=== PATIENT | male | born 1930 | race Caucasian/White ===

== ENCOUNTER 2018-09-21 12:25 | Inpatient (IN) | payer MEDICARE, OTHER ==
[~2018-09-21] VITALS: Ht 165.1 cm; Wt 38.6 kg
--- NOTE | 2018-09-21 12:25 | NUR ---
PT DARONPA FROM [facility]. PT AAOX4, PT ON MONITOR, VSS, NAD NOTED, PENDING MD FREEMAN
[2018-09-21] MEDS ORDERED: VANCOMYCIN 1 GM in IV D5W 250 ML IV ONE (13:00)
[2018-09-21] MEDS ORDERED: IV NS 0.9% 1,000 ML BAG IV ONE (13:00)
[2018-09-21] MEDS ORDERED: SENN-168 GT (13:11)
[2018-09-21] MEDS ORDERED: ASPI-1169 GT (13:11)
[2018-09-21] MEDS ORDERED: DOCU50LI GT (13:11)
[2018-09-21] MEDS ORDERED: VALS80TA2 GT (13:11)
[2018-09-21] MEDS ORDERED: ACET650S26 GT ×2 (13:11)
[2018-09-21] MEDS ORDERED: OLAN5TAB3 GT (13:11)
[2018-09-21] MEDS ORDERED: MAGN400O6 GT (13:11)
[2018-09-21] MEDS ORDERED: NA P133E RC (13:11)
[2018-09-21] MEDS ORDERED: PANT40SU2 GT (13:11)
[2018-09-21] MEDS ORDERED: AMIN30LI27 GT (13:11)
[2018-09-21] MEDS ORDERED: MULT-447 GT (13:11)
[2018-09-21] MEDS ORDERED: NUTR150016 GT (13:11)
[2018-09-21] MEDS ORDERED: ACET-2605 GT (13:11)
[2018-09-21] MEDS ORDERED: THIA100T74 GT (13:11)
[2018-09-21] MEDS ORDERED: BISA10SU8 RC (13:11)
[2018-09-21 13:19] LABS: BASOPHILS % (AUTO) 0.8 % (0.0-2.0); EOSINOPHILS % (AUTO) 0.9 % (0.0-6.0); HEMATOCRIT 35 % (39-51); HEMOGLOBIN 12.1 g/dL (13.5-17.5); LYMPHOCYTES # (AUTO) 1.3 /CMM (0.8-4.8); LYMPHOCYTES % (AUTO) 28.3 % (20.0-44.0); MEAN CORPUSCULAR HGB CONC 35 g/dl (31.0-36.0); MEAN CORPUSCULAR VOLUME 98 fL (80-96); MONOCYTES # (AUTO) 0.2 /CMM (0.1-1.30); MONOCYTES % (AUTO) 5.4 % (2.0-12.0); NEUTROPHILS # (AUTO) 2.9 /CMM (1.8-8.9); NEUTROPHILS % (AUTO) 64.6 % (43.0-81.0); PLATELET COUNT (AUTO) 158 /CMM (150-450); RED BLOOD CELL COUNT(AUTO) 3.54 MIL/uL (4.5-6.0); WHITE BLOOD COUNT (AUTO) 4.4 K/uL (4.3-11.0)
[2018-09-21 13:28] LABS: CALCIUM, SERUM 8.9 mg/dL (8.5-10.1); CARBON DIOXIDE 32 mmol/L (21-32); CHLORIDE 102 mmol/L (98-107); CREATININE 0.8 mg/dL (0.6-1.3); GLUCOSE 81 mg/dL (74-106); POTASSIUM 4.5 mmol/L (3.5-5.1); SODIUM SERUM 137 mmol/L (136-145); UREA NITROGEN, BLOOD 29 mg/dL (7-18)
[2018-09-21 13:34] LABS: ALANINE AMINOTRANSFERASE 20 U/L (12-78); ALBUMIN 2.8 g/dL (3.4-5.0); ALKALINE PHOSPHATASE 119 U/L (46-116); ASPARTATE AMINOTRANSFERASE 17 U/L (15-37); BILIRUBIN,DIRECT 0.2 mg/dL (0.0-0.2); BILIRUBIN,TOTAL 0.8 mg/dL (0.2-1.0)
--- NOTE | 2018-09-21 14:32 | NUR ---
URINE SAMPLE SENT TO LAB
[2018-09-21 14:36] LABS: APPEARANCE,URINE Slightly Cloudy (CLEAR); BILIRUBIN,URINE Negative (NEGATIVE); BLOOD, URINE Negative Ery/uL (NEGATIVE); COLOR,URINE Yellow (YELLOW); KETONES,URINE Negative (NEGATIVE); LEUKOCYTE ESTERASE ,URINE Negative (NEGATIVE); NITRITE, URINE Negative (NEGATIVE); PH,URINE 7.5 (5.0-8.0); PROTEIN,URINE Negative (NEGATIVE); UGLUCOSE Negative (NEGATIVE); UROBILINOGEN,URINE 0.2 EU/dL (0.2)
--- NOTE | 2018-09-21 14:42 | NUR ---
DR MARVIN AT BEDSIDE. ATTEMPTED TO RE INSERT G-TUBE. UNSUCCESSFUL DUE TO CLOSURE OF STOMA.
--- NOTE | 2018-09-21 16:32 | NUR ---
PT IN BED ASLEEP, FAMILY AT BEDSIDE, HOOKED TO MONITOR, KEPT WARM AND SAFE. WILL CONTINUE TO MONITOR.
--- NOTE | 2018-09-21 17:52 | NUR ---
REPORT GIVEN TO ARLEY OF MED SURG UNIT
[2018-09-21] MEDS ORDERED: MAGNESIUM HYDROXIDE 30 ML UDC PO PRN (18:00)
[2018-09-21] MEDS ORDERED: HYDROCODONE/APAP 5/325MG 1 EACH TABLET PO PRN (18:00)
[2018-09-21] MEDS ORDERED: MAG HYDROX/AL HYDROX/SIMETH 30 ML UDC PO PRN (18:00)
[2018-09-21] MEDS ORDERED: ZOLPIDEM TARTRATE 5 MG TABLET PO PRN (18:00)
[2018-09-21] MEDS ORDERED: Z GUARD REMEDY 2 OZ OINT TP PRN (18:00)
[2018-09-21] MEDS ORDERED: ACETAMINOPHEN 325 MG TABLET PO PRN (18:00)
[2018-09-21] MEDS ORDERED: ONDANSETRON HCL/PF 4 MG/2 ML VIAL IVP PRN (18:00)
[2018-09-21] MEDS ORDERED: FEE PK DOSING 1 MIN EA MC ONE (18:08)
--- NOTE | 2018-09-21 18:30 | NUR ---
ADMISSION/CLOSING NOTE PT WAS BROUGHT UP AT THIS TIME IN STABLE CONDITION TO THE FLOOR, A/OX2, BREATHING EVEN AND UNLABORED ON RA, NO CURRENT S/S OF ANY DISTRESS OR PAIN NOTED AT THIS TIME, IV IS PATENT AND INTACT, SAFETY PRECAUTIONS IN PLACE, CALL LIGHT WITHIN REACH, WILL ENDORSE TO ONCOMING GENERAL ROAD PRODUCTION MANAGER RN FOR GALDINO.
--- NOTE | 2018-09-21 19:30 | NUR ---
MS RN OPENING NOTES: RECEIVED PT ON ROOM AIR AND IS TOLERATING WELL. NO SOB NOTED. NO S/S OF DISTRESS. 2 SONS AT BEDSIDE. PT HAS IV AND IS INTACT. CURRENTLY H/L. PT MALTESE SPEAKING ONLY AND APPEARS TO BE A/OX2. PT TO BE STARTED ON IV FLUIDS SOON. BED ALARM ACTIVATED. BED KEPT IN LOW, LOCKED POSITION, AND SIDE RAILS X 2UP. WILL CONTINUE TO MONITOR PT.
[2018-09-21] MEDS: IV D5/0.45 NACL 1,000 ML IV PRN (19:52)
[2018-09-21 20:00] VITALS: BP 93/51
[2018-09-21] MEDS ORDERED: hydrALAZINE HCL IV 20 MG VIAL IV PRN (20:30)
[2018-09-22] MEDS: VANCOMYCIN 500 MG in IV D5W 100 ML IV SCH ×2 (00:02→13:07)
[2018-09-22 03:29] VITALS: BP 97/53
[2018-09-22 06:42] LABS: BASOPHILS % (AUTO) 0.8 % (0.0-2.0); EOSINOPHILS % (AUTO) 2.1 % (0.0-6.0); HEMATOCRIT 27 % (39-51); HEMOGLOBIN 9.7 g/dL (13.5-17.5); LYMPHOCYTES # (AUTO) 1.3 /CMM (0.8-4.8); LYMPHOCYTES % (AUTO) 43.1 % (20.0-44.0); MEAN CORPUSCULAR HGB CONC 36 g/dl (31.0-36.0); MEAN CORPUSCULAR VOLUME 96 fL (80-96); MONOCYTES # (AUTO) 0.3 /CMM (0.1-1.30); MONOCYTES % (AUTO) 8.2 % (2.0-12.0); NEUTROPHILS # (AUTO) 1.4 /CMM (1.8-8.9); NEUTROPHILS % (AUTO) 45.8 % (43.0-81.0); PLATELET COUNT (AUTO) 131 /CMM (150-450); RED BLOOD CELL COUNT(AUTO) 2.83 MIL/uL (4.5-6.0); WHITE BLOOD COUNT (AUTO) 3.1 K/uL (4.3-11.0)
--- NOTE | 2018-09-22 06:58 | NUR ---
MS RN CLOSING NOTES: ALL NEEDS WERE ATTENDED AND ANTICIPATED FOR. PT KEPT CLEAN, DRY, AND COMFORTABLE. G TUBE SITE KEPT CLEAN AND DRY AND COVERED WITH AB PAD. IV REMAINS INTACT AND IS BEING INFUSED WITH IV D5 1/2 NS AT 75ML/HR. BED ALARM ACTIVATED. NO SOB NOTED. NO S/S OF DISTRESS. BED KEPT IN LOW, LOCKED POSITION, AND SIDE RAILS X 2 UP. WILL ENDORSE TO AM NURSE FOR GALDINO.
[2018-09-22 07:06] LABS: CALCIUM, SERUM 8.4 mg/dL (8.5-10.1); CARBON DIOXIDE 29 mmol/L (21-32); CHLORIDE 101 mmol/L (98-107); CREATININE 0.7 mg/dL (0.6-1.3); GLUCOSE 87 mg/dL (74-106); PHOSPHORUS 3.1 mg/dL (2.5-4.9); POTASSIUM 4.1 mmol/L (3.5-5.1); SODIUM SERUM 137 mmol/L (136-145); UREA NITROGEN, BLOOD 24 mg/dL (7-18)
[2018-09-22 08:00] VITALS: BP 118/65
--- NOTE | 2018-09-22 08:00 | NUR ---
RN NOTES RECEIVED PATIENT IN THE BED A/O X1, POLISH SPEAKER. PATIENT NPO BECAUSE REMOVED GT. PATIENT SEEN BY Dr. ACHARYA, AND SCHEDULED PEG PLACEMENT., CONSENT FORM SIGNED BY SON NAME GUMARO. ALSO SEEN WOUND NURSE SERGO. PATIENT HAS PRESSURE ULCERS BOTH HIP SIDE, APPLIED MEPILEX, AND PICTURE TAKEN. INFUSING D51/2 NF AT 75 ML/HE ON RIGHT FA INTACT. PATIENT NPO. SCHEDULED MEDICATION ADMINISTERED. PATIENT REFUSED PAIN AT THIS TIME. V/S STABLE. ASSIST TURN AND REPOSTION Q 2 HR. APPLIED CONDOM CATH. CALL LIGHT WITHIN TO REACH, SAFETY PRECAUTION MAINTAINED ALL THE TIME.
[2018-09-22] MEDS: PANTOPRAZOLE 40 MG VIAL IV SCH (09:30)
--- NOTE | 2018-09-22 11:56 | NUR ---
WOUND CARE CONSULT: PT FOLLOWED BY DR BELL AND PLASTIC SURGERY TEAM. DEFER TO SURGICAL TEAM FOR WOUND TREATMENT PLAN. 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 G TUBE CURRENTLY OUT. WILL SEE PRN. DISCUSSED SKIN PROTECTION WITH NURSING STAFF.
[2018-09-22] MEDS: PIPERACILLIN /TAZOBACTAM 2.25 G in IV D5W 50 ML IV SCH ×3 (12:20→23:16)
[2018-09-22] MEDS: IV D5/0.45 NACL 1,000 ML IV PRN (12:27)
--- NOTE | 2018-09-22 13:00 | NUR ---
RN NOTES PATIENT IN THE BED STABLE, ASSIST TRUN AND REPOSTION Q 2 HR. SAFETY PRECAUTION MAINTAINED ALL THE TIME.
[2018-09-22 16:00] VITALS: BP 114/60
[2018-09-22] MEDS ORDERED: ACETAMINOPHEN 650 MG/SUPP.RECT RC PRN (18:00)
[2018-09-22 18:03] LABS: IRON, SERUM 46 ug/dl (50-175); TOTAL IRON BINDING CAPACITY 146 ug/dl (250-450)
[2018-09-22 18:16] LABS: FERRITIN 473 ng/mL (8-388)
--- NOTE | 2018-09-22 18:30 | NUR ---
RN NOTES COLLECTED WOUND CULTURE, SCHEDULED MEDICATION ADMINISTERED, V/S STABLE, INFUSING ZOSYN AT THIS TIME 100 ML/HE INTACT. ASSIST TURN AND REPOSTION Q2 HR. SEEN BY MARQUITA INTERNAL AUDITOR ORDERS TAKEN AND CARRIED OUT. NEEDS ATTENDED AND ANTICIPATED, ENDORSED ONCOMING NURSE FOR PLAN OF CARE. BED ALARM ON, CONDOM CATH DRAINING LIGHT YELLOW OUTPUT.
--- NOTE | 2018-09-22 19:15 | NUR ---
MS RN OPENING NOTES Received patient in bed, alert, oriented x 1-2. Arabic speaking, limited persian. Breathing even and unlabored. Not in any distress. No complaints at this time. Peripheral IV infusing at 75mL/hr. Call light within easy reach. Bed in low, locked position. Patient stable as endorsed by the morning RN. Will continue to monitor accordingly
[2018-09-22 20:00] VITALS: BP 117/64
[2018-09-23] MEDS: VANCOMYCIN 500 MG in IV D5W 100 ML IV SCH (00:27)
[2018-09-23] MEDS: IV D5/0.45 NACL 1,000 ML IV PRN ×2 (05:03→22:08)
[2018-09-23] MEDS: PIPERACILLIN /TAZOBACTAM 2.25 G in IV D5W 50 ML IV SCH (05:16)
--- NOTE | 2018-09-23 05:50 | NUR ---
RN NOTES Dressing on abdomen changed
[2018-09-23 06:39] LABS: BASOPHILS % (AUTO) 1.1 % (0.0-2.0); EOSINOPHILS % (AUTO) 1.8 % (0.0-6.0); HEMATOCRIT 29 % (39-51); HEMOGLOBIN 10.6 g/dL (13.5-17.5); MEAN CORPUSCULAR HGB CONC 36 g/dl (31.0-36.0); MEAN CORPUSCULAR VOLUME 95 fL (80-96); MONOCYTES # (AUTO) 0.2 /CMM (0.1-1.30); MONOCYTES % (AUTO) 7.5 % (2.0-12.0); NEUTROPHILS # (AUTO) 1.4 /CMM (1.8-8.9); NEUTROPHILS % (AUTO) 53.6 % (43.0-81.0); PLATELET COUNT (AUTO) 133 /CMM (150-450); WHITE BLOOD COUNT (AUTO) 2.7 K/uL (4.3-11.0)
[2018-09-23 07:02] LABS: CALCIUM, SERUM 8.4 mg/dL (8.5-10.1); CARBON DIOXIDE 30 mmol/L (21-32); CHLORIDE 102 mmol/L (98-107); CREATININE 0.7 mg/dL (0.6-1.3); GLUCOSE 93 mg/dL (74-106); POTASSIUM 3.6 mmol/L (3.5-5.1); SODIUM SERUM 139 mmol/L (136-145); UREA NITROGEN, BLOOD 17 mg/dL (7-18)
--- NOTE | 2018-09-23 07:02 | NUR ---
MS RN NOTES PATIENT IN BED EYES CLOSED, EASY TO AROUSE. RESPOND TO VERBAL AND TACTILE STIMULI. NO ACUTE DISTRESS NOTED. BREATHING UNLABORED. NO SOB NOTED. SAFETY MEASURES IN PLACE. CALL LIGHT WITHIN REACH. WILL CONTINUE TO MONITOR ACCORDINGLY.
--- NOTE | 2018-09-23 07:04 | NUR ---
MS RN CLOSING NOTES PATIENT RESTING IN BED. ALL NEEDS ATTENDED AND ANTICIPATED. KEPT CLEAN, DRY, AND COMFORTABLE. IV REMAINS INTACT INFUSING WITH IV D5 1/2 NS AT 75ML/HR. NO SOB NOTED. NO S/S OF DISTRESS. BED KEPT IN LOW, LOCKED POSITION, AND SIDE RAILS X 2 UP. WILL ENDORSE GALDINO TO ONCOMING RN
[2018-09-23 08:00] VITALS: BP 124/72
--- NOTE | 2018-09-23 08:35 | NUR ---
MS RN NOTES SEEN AND EVALUATED BY DR KAREN NINO WITH NEW ORDERS MADE. NOTED AND CARRIED OUT. DR NINO AWARE OF MEDICATION RECONCILIATION NOT DONE YET, AWAITING FOR NEW PEG PLACEMENT.
[2018-09-23 08:53] LABS: EOSINOPHILS % (MANUAL) 1 % (0-4); LYMPHOCYTES % (MANUAL) 37 % (16-48); MONOCYTES % (MANUAL) 5 % (0-11.0); NEUTROPHILS % (MANUAL) 57 (42-76)
[2018-09-23] MEDS: PANTOPRAZOLE 40 MG VIAL IV SCH (08:54)
[2018-09-23 12:00] VITALS: BP 118/68
[2018-09-23 16:00] VITALS: BP 114/67
--- NOTE | 2018-09-23 19:00 | NUR ---
MS RN NOTES PATIENT IN BED ALERT ORIENTED X 1-2, NO ACUTE DISTRESS NOTED. BREATHING UNLABORED. NO SOB NOTED. DUE MEDICATIONS GIVEN, NO ASE NOTED. NEEDS ATTENDED AND ANTICIPATED. KEPT CLEAN DRY AND COMFORTABLE.SAFETY MEASURES IN PLACE. CALL LIGHT WITHIN REACH. ENDORSED TO NIGHT NURSE FOR CONITUITY OF CARE.
--- NOTE | 2018-09-23 19:49 | NUR ---
RN MS OPENING NOTES RECEIVED PATIENT IN BED AWAKE, ALERT AND ORIENTED X1-2, VERBALLY RESPONSIVE. SUDANESE SPEAKER. FAMILY AT BEDSIDE. BREATHING EVEN AND UNLABORED. NO SOB NOTED. TOLERATING ROOM AIR. NO COMPLAINTS OF PAIN OR DISCOMFORT. NO FACIAL GRIMACING. IV ON RIGHT FA INTACT AND PATENT WITH IVF INFUSING WELL. SKIN DRY AND WARM TO TOUCH. AFEBRILE. ALL DRESSINGS CLEAN, DRY AND INTACT. ALL OTHER NEEDS ATTENDED TO. SAFETY MEASURES IN PLACE. CALL LIGHT WITHIN REACH. WILL CONTINUE TO MONITOR.
[2018-09-23 20:00] VITALS: BP 111/71
--- NOTE | 2018-09-24 07:01 | NUR ---
RN MS CLOSING NOTES PATIENT RESTING IN BED. NO ACUTE CHANGES THROUGHOUT SHIFT. BREATHING EVEN AND UNLABORED. NO SOB NOTED. TOLERATING ROOM AIR. NO S/S OF PAIN OR DISCOMFORT. NO FACIAL GRIMACING. IV ON RIGHT FA INTACT AND PATENT WITH IVF INFUSING WELL. SKIN DRY AND WARM TO TOUCH. AFEBRILE. ALL DRESSINGS CLEAN, DRY AND INTACT. ALL OTHER NEEDS ATTENDED TO. SAFETY MEASURES IN PLACE. CALL LIGHT WITHIN REACH. WILL ENDORSE TO ONCOMING NURSE FOR GALDINO.
[2018-09-24 07:08] LABS: CALCIUM, SERUM 8.6 mg/dL (8.5-10.1); CARBON DIOXIDE 29 mmol/L (21-32); CHLORIDE 101 mmol/L (98-107); CREATININE 0.7 mg/dL (0.6-1.3); GLUCOSE 100 mg/dL (74-106); POTASSIUM 3.5 mmol/L (3.5-5.1); SODIUM SERUM 138 mmol/L (136-145); UREA NITROGEN, BLOOD 14 mg/dL (7-18)
[2018-09-24 08:00] VITALS: BP 125/71
--- NOTE | 2018-09-24 08:00 | NUR ---
rn opening note patient is scheduled to egd peg placement procedure this am. patient is algerian speaking, a/o x1 per report. patient in no distress bed down locked sr x3 urinal call light in reach bed alarm active. , board updated with poc. consents were singend by brother per earlier report whom is involved wit the care of patient. iv infusing to rfa 20 gauge with no s/s of infiltration.
[2018-09-24] MEDS: PANTOPRAZOLE 40 MG VIAL IV SCH (09:05)
[2018-09-24] MEDS ORDERED: JEVITY 1.2 CAL 1,000 ML BOTTLE GT PRN (11:30)
[2018-09-24 16:00] VITALS: BP 122/72
[2018-09-24] MEDS: IV D5/0.45 NACL 1,000 ML IV PRN (17:39)
--- NOTE | 2018-09-24 19:15 | NUR ---
REPORT ENDORSED TO ISMAEL AT BEDSIDE PATIENT SEEN IVF INUSING TO RIGHT ARM WITH NO S/S OF INFILTRATION. JEVITY INUSING VIA G TUBE AT 40 ML / HR . PATIENT IN SEMI FOWLERS POSITION SEEN RESTING WITH EYES CLOSED. BED DOWN LOCKED SRX3 BED ALARM ACTIVE.
--- NOTE | 2018-09-24 19:50 | NUR ---
RN MS OPENING NOTES RECEIVED PT IN BED SLEEPING, EASILY AROUSED TO NAME CALL. BREATHING EVEN AND UNLABORED ON ROOM AIR, NO SIGNS OF SOB, NO COUGH OR CONGESTION. IV ACCESS ON THE R FA 20G WITH D5NS@75ML/HR. PT CLEAN AND DRY, IN NO APPARENT DISTRESS OR DISCOMFORT AT THE TIME. BED IN LOWEST LOCKED POSITION, WILL CONTINUE TO MONITOR FREQUENTLY.
[2018-09-24 20:00] VITALS: BP 114/62
--- NOTE | 2018-09-25 06:14 | NUR ---
RN MS CLOSING NOTES PT REMAINS IN BED SLEEPING, EASILY AROUSED TO NAME CALL. BREATHING EVEN AND UNLABORED ON ROOM AIR, NO SIGNS OF SOB, NO COUGH OR CONGESTION. IV ACCESS ON THE R FA 20G AND L FA 24G WITH D5NS@75ML/HR. KEPT PT CLEAN AND DRY DURING SHIFT, NO BM, IN NO APPARENT DISTRESS OR DISCOMFORT AT THE TIME. BED IN LOWEST LOCKED POSITION, WILL ENDORSE TO DAY NURSE FOR GALDINO.
[2018-09-25] MEDS: IV D5/0.45 NACL 1,000 ML IV PRN (06:26)
[2018-09-25 06:53] LABS: CALCIUM, SERUM 8.6 mg/dL (8.5-10.1); CARBON DIOXIDE 29 mmol/L (21-32); CHLORIDE 100 mmol/L (98-107); CREATININE 0.8 mg/dL (0.6-1.3); GLUCOSE 117 mg/dL (74-106); POTASSIUM 3.6 mmol/L (3.5-5.1); SODIUM SERUM 133 mmol/L (136-145); UREA NITROGEN, BLOOD 15 mg/dL (7-18)
--- NOTE | 2018-09-25 07:27 | NUR ---
RN MS OPENING NOTES Received patient on room air, no sob noted. Patient sleeping comfortably at this time. No facial grimacing that indicates pain. Patient has an IV line on his Left FA 24 gauge. D5NS@75ml/hour, no obstruction and is flowing. Feeding is currently at 50 ml/hour with a goal of 55 ml/hour.
[2018-09-25 08:00] VITALS: BP 113/65
[2018-09-25] MEDS: PANTOPRAZOLE 40 MG VIAL IV SCH (09:08)
[2018-09-25] MEDS ORDERED: BISACODYL SUPP (10 MG) 10 MG/SUPP.RECT SUPP.RECT RC PRN (10:00)
[2018-09-25] MEDS ORDERED: NA PHOS,M-B/NA PHOS,DI-BA 1 EA ENEMA RC PRN (10:00)
[2018-09-25] MEDS ORDERED: MISCELLANEOUS MED 1 EA EA GT PRN (10:00)
[2018-09-25] MEDS ORDERED: MAGNESIUM HYDROXIDE 30 ML UDC GT PRN (10:00)
[2018-09-25] MEDS ORDERED: ACETAMINOPHEN 650 MG/20.3 ML UDC GT PRN (10:00)
[2018-09-25] MEDS ORDERED: MULTIVITAMINS,THERAGRAN 1 UDTAB TABLET GT SCH (11:30)
--- NOTE | 2018-09-25 14:59 | NUR ---
SENIOR QUALITY ASSURANCE ENGINEER NOTES Patient's family members wanted to take him to [facility] using their private car, I explained to them about the benefits of using an ambulance due to patient's newly placed GT. Patient's family member stated that they are aware of the possibility of it dislodging and is taking responsibility of it. [facility] called and told them about the situation, they are aware that the patient's family member is taking him to [facility] by themselves. [facility] is aware that the family member is aware of the dangers of transporting the patient by their car. Charge nurse aware of the situation. Patient left on room air with no sob noted, vital signs stable, no grimmacing for pain. IV lines removed and covered without swelling. Patient's belonging with the patient and is signed. Wound care done and photos were taken. Patient's family signed the discharge paper with knowledge of the instruction and they were handed the original copy of the prescription. Patient was wheeled down on a wheelchair.
[2018-09-25] MEDS ORDERED: PROSOURCE / PROSTAT (PYXIS) 30 ML UDC GT SCH (17:00)
[2018-09-25] MEDS ORDERED: SENNOSIDES 8.6 MG TABLET GT SCH (21:00)
[2018-09-25] MEDS ORDERED: OLANZAPINE 5 MG TABLET GT SCH (22:00)
[2018-09-26] MEDS ORDERED: PANTOPRAZOLE 40 MG/PACK PACK GT SCH (06:30)
[2018-09-26] MEDS ORDERED: DOCUSATE SODIUM LIQ 100 MG/10 ML UDC GT SCH (09:00)
[2018-09-26] MEDS ORDERED: ASPIRIN 81 MG TAB.CHEW GT SCH (09:00)
[2018-09-26] MEDS ORDERED: ACETAMINOPHEN 650 MG/20.3 ML UDC GT SCH (09:00)
[2018-09-26] MEDS ORDERED: VALSARTAN 80 MG TABLET GT SCH (09:00)
[2018-09-26] MEDS ORDERED: THIAMINE HCL 100 MG TABLET GT SCH (09:00)
== END 2018-09-25 14:45 | DRG 393 ==
LOC: ER 12:47 → MED 17:16
PROVIDERS: ADMIT Student in an Organized Health Care Education/Training Program; ATTEND Nurse Practitioner Acute Care
PROC: 0DH63UZ Insertion of Feeding Device into Stomach, Percutaneous Approach (ICD-10-PCS; principal; 2018-09-24)
DX: Z43.1 Encounter for attention to gastrostomy (principal); L89.213 Pressure ulcer of right hip, stage 3; R53.2 Functional quadriplegia; E43 Unspecified severe protein-calorie malnutrition; G93.41 Metabolic encephalopathy; J69.0 Pneumonitis due to inhalation of food and vomit; L03.311 Cellulitis of abdominal wall; N17.9 Acute kidney failure, unspecified; D61.818 Other pancytopenia; R64 Cachexia; J98.11 Atelectasis; Z68.1 Body mass index [BMI] 19.9 or less, adult; Y83.3 Surgical operation with formation of external stoma as the cause of abnormal reaction of the patient, or of later complication, without mention of misadventure at the time of the procedure; Y82.9 Unspecified medical devices associated with adverse incidents; Y92.129 Unspecified place in nursing home as the place of occurrence of the external cause; I10 Essential (primary) hypertension; F03.90 Unspecified dementia, unspecified severity, without behavioral disturbance, psychotic disturbance, mood disturbance, and anxiety; E86.0 Dehydration; R13.10 Dysphagia, unspecified; K21.9 Gastro-esophageal reflux disease without esophagitis; Z79.82 Long term (current) use of aspirin; J44.9 Chronic obstructive pulmonary disease, unspecified; D53.9 Nutritional anemia, unspecified; M62.50 Muscle wasting and atrophy, not elsewhere classified, unspecified site; L89.220 Pressure ulcer of left hip, unstageable; L53.8 Other specified erythematous conditions
CPT/HCPCS: 36415; 43246; 71045-TC; 76882; 80048-TC; 80076-TC; 80202-TC; 81000-TC; 82728-TC; 83540-TC; 83605-TC; 83735-TC; 84100-TC; 84484-TC; 85025-TC; 85610-TC; 85730-TC; 86850-TC; 87040-TC; 87070-TC; 87081-TC; 87086-TC; 87186-TC; 93307-TC; A4349; A6253; A6402; A6403; C9113; G0378; J0690; J2543; J2704; J3370; J3490; J7030; J7042; J7060

== ENCOUNTER 2019-07-25 11:50 | Inpatient (IN) | payer MEDICARE, OTHER ==
[~2019-07-25] VITALS: Ht 167.6 cm; Wt 53.1 kg
[~2019-07-25 11:50] MED LIST: ACET-2605 GT; ACET650S26 GT; AMIN30LI27 GT; ASPI-1169 GT; BISA10SU11 RC; DOCU50LI GT; MAGN400O6 GT; MULT-447 GT; NA P133E RC; NUTR150016 GT; OLAN5TAB3 GT; PANT40SU2 GT; SENN-168 GT; THIA100T74 GT; VALS80TA2 GT
--- NOTE | 2019-07-25 12:04 | NUR ---
kenroy, from [facility], came in due to GT site leaking, noted this morning, PT TO BED 4, -SOB, NAD NOTED, PT ON MONITOR, VSS,Justin UNGER
[2019-07-25] MEDS ORDERED: VANCOMYCIN 1 GM in IV D5W 250 ML IV ONE (13:00)
--- NOTE | 2019-07-25 13:03 | NUR ---
CALLED [facility], PAGED GEORGETTE
--- NOTE | 2019-07-25 13:08 | NUR ---
CALLED NURSING SUP FOR BED
[2019-07-25 13:09] LABS: BASOPHILS % (AUTO) 0.4 % (0.0-2.0); EOSINOPHILS % (AUTO) 0.9 % (0.0-6.0); HEMATOCRIT 36 % (39-51); LYMPHOCYTES # (AUTO) 1.5 /CMM (0.8-4.8); MEAN CORPUSCULAR HGB CONC 33 g/dl (31.0-36.0); MEAN CORPUSCULAR VOLUME 89 fL (80-96); MONOCYTES # (AUTO) 0.5 /CMM (0.1-1.30); MONOCYTES % (AUTO) 6.1 % (2.0-12.0); NEUTROPHILS # (AUTO) 6.4 /CMM (1.8-8.9); NEUTROPHILS % (AUTO) 74.6 % (43.0-81.0); PLATELET COUNT (AUTO) 179 /CMM (150-450); RED BLOOD CELL COUNT(AUTO) 4.06 MIL/uL (4.5-6.0); WHITE BLOOD COUNT (AUTO) 8.6 K/uL (4.3-11.0)
[2019-07-25] MEDS ORDERED: VANCOMYCIN 1 GM VIAL ONE (13:20)
[2019-07-25 13:25] LABS: CALCIUM, SERUM 9.4 mg/dL (8.5-10.1); POTASSIUM 5.3 mmol/L (3.5-5.1)
[2019-07-25] MEDS ORDERED: OMEP20TA5 GT (13:30)
--- NOTE | 2019-07-25 13:32 | NUR ---
PER ALDAIR Hinton NP, HE SPOKE TO THE SON, HE WANTS HIS DAD TO BE FULL CODE--
--- NOTE | 2019-07-25 13:43 | NUR ---
[facility]
[2019-07-25] MEDS ORDERED: ACETAMINOPHEN 325 MG TABLET PO PRN (14:00)
[2019-07-25] MEDS ORDERED: MAGNESIUM HYDROXIDE 30 ML UDC PO PRN (14:00)
[2019-07-25] MEDS ORDERED: Z GUARD REMEDY 2 OZ OINT TP PRN (14:00)
[2019-07-25] MEDS ORDERED: ONDANSETRON HCL/PF 4 MG/2 ML VIAL IVP PRN (14:00)
[2019-07-25] MEDS ORDERED: MORPHINE SULFATE INJ 2 MG/ML DISP.SYRIN IV PRN (14:00)
[2019-07-25] MEDS ORDERED: MAG HYDROX/AL HYDROX/SIMETH 30 ML UDC PO PRN (14:00)
[2019-07-25] MEDS ORDERED: HYDROCODONE/APAP 5/325MG 1 EACH TABLET PO PRN (14:00)
[2019-07-25] MEDS ORDERED: FEE PK DOSING 1 MIN EA MC ONE (14:20)
--- NOTE | 2019-07-25 14:21 | NUR ---
REPORT GIVEN TO CUBA RN FOR GALDINO; PT WILL BE TRANSPORTED TO 1ST FLOOR
--- NOTE | 2019-07-25 14:25 | NUR ---
M/S COFFEE BLENDER NOTED RECEIVED PT VIA GURNEY FROM ER ACCOMPANIED BY NURSE AND TECH. FAMILY MEMBER, GUMARO(SON), ON BEDSIDE. PT A/O 1, IRISH SPEAKING ONLY. RESPIRATION EVEN AND NON LABORED WITH NO ACUTE RESPIRATORY DISTRESS. ABDOMEN SOFT AND NON DISTENDED WITH ACTIVE BOWEL SOUNDS, ON DIAPER, LBM TODAY, URINE CLEAR YELLOW, NO FOUL ODOR. SKIN WARM TO TOUCH AND DRY, G-TUBE SITE REDNESS OBSERVED AND RIGHT HIP WOUND. REFER TO WOUND CONSULT. PT HAS NO S/SX OF PAIN AND DISCOMFORT. IV SITE AT LEFT FA #20, PATENT IN FLUSHING, NO S/SX ON INFILTRATION. PT ON NPO, TO START IV D5 1/2 NS AT 75 ML/HR ORDERED. CALL LIGHT WITHIN REACH, LOW BED POSITION, SIDE RAILS X2 UP FOR SAFETY. BED ALARM ON. WILL CONTINUE TO EVALUATE CARE.
[2019-07-25] MEDS ORDERED: hydrALAZINE HCL IV 20 MG VIAL IV PRN (14:30)
[2019-07-25] MEDS: ENOXAPARIN SODIUM 40 MG/0.4 ML DISP.SYRIN SQ SCH (14:55)
[2019-07-25] MEDS: IV D5/0.45 NACL 1,000 ML IV PRN (15:01)
--- NOTE | 2019-07-25 15:15 | NUR ---
M/S RN NOTES PT WENT HOME AND WILL BE BACK TONIGHT, TO CALL AT [phone] FOR ANY CONCERNS
[2019-07-25 16:00] VITALS: BP 109/79
[2019-07-25 16:06] VITALS: BP 109/79
--- NOTE | 2019-07-25 17:05 | NUR ---
M/S RN NOTES PT REPOSITIONED TO LEFT SIDE LYING POSITION, TOLERATED WELL.
[2019-07-25] MEDS ORDERED: MEROPENEM 500 MG in IV NS 0.9% 50 ML IV ONE (18:00)
--- NOTE | 2019-07-25 18:48 | NUR ---
M/S RN CLOSING NOTES PT A/O 1-2, BRUNEIAN SPEAKING ONLY. ASSESSED NO ACUTE RESPIRATORY DISTRESS. ABDOMEN SOFT AND NON DISTENDED WITH ACTIVE BOWEL SOUNDS. SKIN WARM TO TOUCH AND DRY, REFERRED TO WOUND CONSULT. DENIES PAIN AND DISCOMFORT. IV SITE AT LEFT FA #20, PATENT IN FLUSHING, NO S/SX ON INFILTRATION RUNNING D5 1/2 NS AT 75 ML/HR. PT ON NPO, ORAL CARE PROVIDED. G-TUBE SITE SECURED TO AVOID FROM PULLING. CALL LIGHT WITHIN REACH, LOW BED POSITION, SIDE RAILS X2 UP FOR SAFETY. BED ALARM ON. ENDORSED PT CARE TO NEXT SHIFT.
--- NOTE | 2019-07-25 19:38 | NUR ---
MS RN OPENING NOTES PATIENT RECEIVED RESTING IN BED A/O X 2 NEPALI SPEAKING. STABLE ON RA WITH BREATHING EVEN AND UNLABORED, NO SOB NOTED. NO SIGNS OF ACUTE DISTRESS. NO CURRENT COMPLAINTS OF PAIN OR DISCOMFORT, NO FACIAL GRIMACING NOTED. GTUBE NOTED AND AREA IS KEPT CLEAN AND DRY WITH DRESSING. LFA #20 PATENT AND INTACT RUNNING D5 1/2 NS. SAFETY PRECAUTIONS IN PLACE WITH BED IN LOWEST POSITION, CALL LIGHT WITHIN REACH, BREAKS ON, AND SIDE RAILS UP X2, WILL CONTINUE TO MONITOR.
[2019-07-25 20:00] VITALS: BP 110/63
[2019-07-26] MEDS: VANCOMYCIN 500 MG in IV D5W 100ml IV SCH ×2 (00:29→13:47)
[2019-07-26] MEDS: MEROPENEM 500 MG in IV NS 0.9% 100 ML IV SCH ×2 (05:25→17:33)
[2019-07-26] MEDS: IV D5/0.45 NACL 1,000 ML IV PRN (05:30)
[2019-07-26 06:30] LABS: BASOPHILS % (AUTO) 0.4 % (0.0-2.0); HEMATOCRIT 33 % (39-51); LYMPHOCYTES # (AUTO) 1.6 /CMM (0.8-4.8); LYMPHOCYTES % (AUTO) 23.3 % (20.0-44.0); MEAN CORPUSCULAR HGB CONC 33 g/dl (31.0-36.0); MEAN CORPUSCULAR VOLUME 87 fL (80-96); MONOCYTES # (AUTO) 0.6 /CMM (0.1-1.30); MONOCYTES % (AUTO) 8.3 % (2.0-12.0); NEUTROPHILS # (AUTO) 4.6 /CMM (1.8-8.9); PLATELET COUNT (AUTO) 161 /CMM (150-450); RED BLOOD CELL COUNT(AUTO) 3.77 MIL/uL (4.5-6.0); WHITE BLOOD COUNT (AUTO) 6.8 K/uL (4.3-11.0)
--- NOTE | 2019-07-26 06:30 | NUR ---
MS RN NOTES PATIENT PULLED OUT G TUBE, SITE SHOWED LITTLE TO NOT BREATHING SMALL DRAINAGE. GTUBE SITE ID RED, WARM TO TOUCH. MD JONES MADE AWARE AND APPROVED TO PUT A ARIAS [address] OF THE GTUBE. AWAITING GI CONSULT. WILL CONTINUE TO MONITOR.
[2019-07-26 06:35] LABS: THYROID STIMULATING HORMONE 1.62 uIU/mL (0.358-3.74)
[2019-07-26 06:39] LABS: ALBUMIN 2.5 g/dL (3.4-5.0); BILIRUBIN,DIRECT 0.1 mg/dL (0.0-0.2); BILIRUBIN,TOTAL 0.6 mg/dL (0.2-1.0); CALCIUM, SERUM 8.7 mg/dL (8.5-10.1); CREATININE 0.9 mg/dL (0.6-1.3); MAGNESIUM 1.9 mg/dL (1.8-2.4); PHOSPHORUS 3.3 mg/dL (2.5-4.9); POTASSIUM 4.1 mmol/L (3.5-5.1); TOTAL PROTEIN, SERUM 7.7 g/dL (6.4-8.2)
--- NOTE | 2019-07-26 06:55 | NUR ---
M/S RN CLOSING NOTES PT A/O 1-2, PAPUA [place] GUINE[place] SPEAKING ONLY. ASSESSED NO ACUTE RESPIRATORY DISTRESS, STABLE ON RA WITH BREATHING EVEN AND UNLABORED. DENIES PAIN AND DISCOMFORT. IV SITE AT LEFT FA #20, PATENT IN FLUSHING, NO S/SX ON INFILTRATION RUNNING D5 1/2 NS AT 75 ML/HR. PT ON NPO, ORAL CARE PROVIDED. G-TUBE SITE WAS REMOVED. ARIAS TOOK IN PLACE TO KEEP STOMA OPEN. CALL LIGHT WITHIN REACH, LOW BED POSITION, SIDE RAILS X2 UP FOR SAFETY. BED ALARM ON. ENDORSED PT CARE TO NEXT SHIFT.
[2019-07-26] MEDS: PANTOPRAZOLE 40 MG TABLET.DR PO SCH (07:30)
--- NOTE | 2019-07-26 07:30 | NUR ---
RN OPENING NOTES RECEIVED PATIENT RESTING IN BED. PT IS A/O X1 CONFUSED. IRISH AND TRINIDADIAN SPEAKING ONLY. IV ON LEFT FOREARM IS INFILTRATED, RED AND SWOLLEN AT SIGHT. REMOVED THE IV. ATTEMPTED TO PLACE A NEW IV, PATIENT IS REFUSING AND BEING COMBATIVE, WILL ATTEMPT AGAIN LATER. PATIENT IS SCARED OF THE NEEDLE. PATIENT IS CURRENTLY NPO, PULLED OUT INFECTED G TUBE IN THE MIDDLE OF THE NIGHT, G TUBE SIGHT IS RED AND WARM TO THE TOUCH. ARIAS WAS PLACED IN THE STOMA TO KEEP IT OPEN BY NOVELTY WORKER NURSE. PENDING GI CONSULT. SAFETY MAINTAINED, CALL LIGHT WITHIN REACH, WILL CONTINUE TO MONITOR.
[2019-07-26 08:00] VITALS: BP 112/66
--- NOTE | 2019-07-26 09:00 | NUR ---
RN MS NOTE SOON CHARGE NURSE WAS ABLE TO CONVINCE THE PATIENT TO PLACE A NEW IV. 20 GAUGE IV WAS PLACED ON THE LEFT HAND BY SOON RN, ONE ATTEMPT. IV INTACT, PATENT, AND FLUSHED WELL. NO S/S OF INFILTRATION OR INFECTION NOTED. SAFETY MAINTAINED, CALL LIGHT WITHIN REACH, WILL CONTINUE TO MONITOR.
--- NOTE | 2019-07-26 10:52 | NUR ---
WOUND CARE CONSULT: PT PRESENTS WITH STAGE 3 ULCER TO RT HIP, PRESENT ON ADMISSION. RECOMMENDATIONS MADE FOR SKIN PROTECTION. DISCUSSED WITH NURSING STAFF. PT ON ARLEEN ISOFLEX LOW AIRLOSS BED. RECOMMEND SURGICAL CONSULT. DR MENESES NOTIFIED OF CONSULT REQUEST. WILL SEE PRN. MELO IN AGREEMENT WITH PLAN OF CARE. Addendum: 07/26/19 at 1054 by SERGO ELIAS WNDNU Amended: Links added.
--- NOTE | 2019-07-26 13:17 | NUR ---
RN NOTE WAITING ON LAB TO GET THE VANCO TROUGH LEVEL BEFORE ADMINISTERING VANCOMYCIN.
[2019-07-26 16:00] VITALS: BP 114/59
--- NOTE | 2019-07-26 19:02 | NUR ---
RN CLOSING NOTE NO ACUTE CHANGES TO PATIENT CONDITION DURING MY SHIFT. PATIENT IN STABLE CONDITION, ON ROOM AIR TOLERATING WELL. ALL PATIENT NEEDS MET. GI DID NOT SEE THE PATIENT, STILL PENDING CONSULT. PATIENT KEPT NPO. KEPT CLEAN AND DRY. IV ON LEFT HAND #20 INTACT, PATENT AND FLUSHED WELL. NO S/S OF INFECTION NOTED. SAFETY MAINTAINED, CALL LIGHT WITHIN REACH, ENDORSED TO LICENSED LAND SURVEYOR NURSE TO CONTINUE CARE.
[2019-07-26 20:00] VITALS: BP 95/57
[2019-07-26] MEDS: ENOXAPARIN SODIUM 40 MG/0.4 ML DISP.SYRIN SQ SCH (21:34)
[2019-07-27] MEDS: VANCOMYCIN 500 MG in IV D5W 100ml IV SCH ×2 (01:20→13:46)
[2019-07-27 04:00] VITALS: BP 112/73
[2019-07-27 05:42] LABS: BASOPHILS % (AUTO) 0.9 % (0.0-2.0); EOSINOPHILS % (AUTO) 1.6 % (0.0-6.0); HEMATOCRIT 31 % (39-51); HEMOGLOBIN 10.5 g/dL (13.5-17.5); LYMPHOCYTES # (AUTO) 1.5 /CMM (0.8-4.8); LYMPHOCYTES % (AUTO) 28.8 % (20.0-44.0); MEAN CORPUSCULAR HGB CONC 34 g/dl (31.0-36.0); MEAN CORPUSCULAR VOLUME 87 fL (80-96); MONOCYTES # (AUTO) 0.4 /CMM (0.1-1.30); MONOCYTES % (AUTO) 7.9 % (2.0-12.0); NEUTROPHILS # (AUTO) 3.2 /CMM (1.8-8.9); NEUTROPHILS % (AUTO) 60.8 % (43.0-81.0); PLATELET COUNT (AUTO) 155 /CMM (150-450); RED BLOOD CELL COUNT(AUTO) 3.56 MIL/uL (4.5-6.0); WHITE BLOOD COUNT (AUTO) 5.2 K/uL (4.3-11.0)
[2019-07-27] MEDS: MEROPENEM 500 MG in IV NS 0.9% 100 ML IV SCH ×2 (06:02→18:05)
[2019-07-27] MEDS: IV D5/0.45 NACL 1,000 ML IV PRN (06:03)
[2019-07-27] MEDS: PANTOPRAZOLE 40 MG TABLET.DR PO SCH (07:30)
[2019-07-27 07:43] LABS: CALCIUM, SERUM 8.9 mg/dL (8.5-10.1); CREATININE 0.9 mg/dL (0.6-1.3); MAGNESIUM 1.9 mg/dL (1.8-2.4); POTASSIUM 4.2 mmol/L (3.5-5.1)
[2019-07-27 08:00] VITALS: BP 119/68
--- NOTE | 2019-07-27 08:00 | NUR ---
independent sales representative Opening Notes Patient received from manager shift resting in bed. No signs of acute distress. Patient is Chadian speaking. On assessment patient G-Tube site had visible purulent discharge, patient is guarding abdomen. F/C in place to hold G-Tube stoma open. Will continue to monitor. Provider Jaja Nicole notified. Bed in lowest position, call light within reach, all measures taken to ensure patient safety.
[2019-07-27 16:00] VITALS: BP 124/72
--- NOTE | 2019-07-27 17:58 | NUR ---
SPOKE WITH PER REQUESTING 24 AND 14 UZBEK FEEDING TUBE TO BE AT BEDSIDE. HE WILL PLACE IN THE AM ON 07/28/2019.
--- NOTE | 2019-07-27 19:20 | NUR ---
RN OPENING NOTES: RECEIVED PT RESTING IN BED, A&OX1-2, BULGARIAN SPEAKING. ON RA, NO DISTRESS NOTED. BREATHING EVEN AND UNLABORED. IV SITE ON LEFT FA #20, FLUSHED, PATENT, AND CLEAN/DRY. D5NS RUNNING AT 75ML/HR. NOTED W/ ARIAS CATHETER 16F AT GTUBE SITE TO KEEP STOMA OPEN. PT NPO AT MIDNIGHT FOR PROCEDURE IN AM TO REINSERT GTUBE AT BEDSIDE. BED IN LOWEST AND LOCKED POSITION, SIDE RAILS UP X3, CALL LIGHT WITHIN REACH. WILL CONTINUE TO MONITOR.
--- NOTE | 2019-07-27 19:30 | NUR ---
M/S RN CLOSING NOTES PT A/O 1-2, MEXICAN SPEAKING ONLY. ASSESSED WITH NO ACUTE RESPIRATORY DISTRESS, STABLE ON RA WITH BREATHING EVEN AND UNLABORED. NO SIGNS OF PAIN OR DISCOMFORT. IV SITE AT LEFT FA #20 G, FLUSHES WELL, PATIENT NPO WITH D5NS RUNNING AT 75ML PER HOUR. ARIAS PLACED PREVIOUS SHIFT TO HOLD STOMA OPEN, SUPPLIES AT BEDSIDE FOR REINSERTION FOR MD. CALL LIGHT WITHIN REACH, LOW BED POSITION, SIDE RAILS X3 UP FOR SAFETY. BED ALARM ON. ENDORSED PT CARE TO NEXT SHIFT.
[2019-07-27 20:00] VITALS: BP 110/68
[2019-07-27] MEDS: ENOXAPARIN SODIUM 40 MG/0.4 ML DISP.SYRIN SQ SCH (21:19)
[2019-07-28] MEDS: VANCOMYCIN 500 MG in IV D5W 100ml IV SCH ×2 (00:46→12:43)
[2019-07-28 04:00] VITALS: BP 115/71
[2019-07-28] MEDS: MEROPENEM 500 MG in IV NS 0.9% 100 ML IV SCH ×2 (05:29→17:54)
[2019-07-28] MEDS: IV D5/0.45 NACL 1,000 ML IV PRN (05:34)
[2019-07-28 06:27] LABS: BASOPHILS % (AUTO) 0.6 % (0.0-2.0); EOSINOPHILS % (AUTO) 1.4 % (0.0-6.0); HEMATOCRIT 32 % (39-51); HEMOGLOBIN 10.9 g/dL (13.5-17.5); LYMPHOCYTES # (AUTO) 1.5 /CMM (0.8-4.8); MEAN CORPUSCULAR HGB CONC 34 g/dl (31.0-36.0); MEAN CORPUSCULAR VOLUME 86 fL (80-96); MONOCYTES # (AUTO) 0.4 /CMM (0.1-1.30); NEUTROPHILS # (AUTO) 3.2 /CMM (1.8-8.9); PLATELET COUNT (AUTO) 165 /CMM (150-450); RED BLOOD CELL COUNT(AUTO) 3.78 MIL/uL (4.5-6.0); WHITE BLOOD COUNT (AUTO) 5.2 K/uL (4.3-11.0)
[2019-07-28 06:32] LABS: CALCIUM, SERUM 8.8 mg/dL (8.5-10.1); CREATININE 0.8 mg/dL (0.6-1.3); MAGNESIUM 1.7 mg/dL (1.8-2.4); PHOSPHORUS 2.7 mg/dL (2.5-4.9); POTASSIUM 3.9 mmol/L (3.5-5.1)
--- NOTE | 2019-07-28 06:55 | NUR ---
M/S RN CLOSING NOTES PATIENT IN BED RESTING, A/O 1-2, LITHUANIAN SPEAKING ONLY. ON ROOM AIR, NO ACUTE RESPIRATORY DISTRESS, EVEN AND UNLABORED BREATHING PATTERNS, . NO SIGNS OF PAIN OR DISCOMFORT. IV SITE AT LEFT FA #20 G, FLUSHES WELL, PATIENT NPO WITH D5NS RUNNING AT 75ML PER HOUR. THE PATIENTS STOMA IS KEPT OPEN WITH ARIAS AT PREVIOUS SHIFT TO HOLD STOMA OPEN, SUPPLIES AT BEDSIDE FOR REINSERTION FOR MD. CALL LIGHT WITHIN REACH, BE IN LOW/LOCKED POSITION, SIDE RAILS X3 UP FOR SAFETY. BED ALARM ON. WILL ENDORSE THE PATIENT TO AM RN FOR GALDINO.
[2019-07-28] MEDS: PANTOPRAZOLE 40 MG TABLET.DR PO SCH (07:30)
--- NOTE | 2019-07-28 07:30 | NUR ---
RN INITIAL NOTE RECEIVED REPORT FROM BALJEET PEREZ. PATIENT IN BED, ASLEEP BUT EASILY AROUSABLE TO NAME. AFGHAN SPEAKING ONLY. ALERTX3-4. NPO AT THIS TIME D/T GTF MALFUNCTION. HAS A LEFT HAND #20 WITH D5 HALF NS AT 75 ML/HR. GI CONSULT PENDING WITH DR RILEY. BED LOCKED AND IN LOWEST POSITION. CALL LIGHT WITHIN REACH. WILL CONTINUE TO MONITOR CLOSELY
[2019-07-28 08:00] VITALS: BP 118/66
--- NOTE | 2019-07-28 09:42 | NUR ---
RN NOTE DR HANSON AT BEDSIDE. CHANGED THE GT TO 14F. PER MD, OK TO USE THIS GT FOR MEDS AND WATER FLUSHING. BUT NO FEEDING YET, D/T SITE REDNESS. CONTINUE ANTIBIOTICS. ONCE ITS HEALED, OK TO CONTINUE FEEDING. MICHAEL MATOS MADE AWARE.
--- NOTE | 2019-07-28 10:30 | NUR ---
RN NOTE SHAWNA AT BEDSIDE, AWARE ABOUT DR HANSON'S VISIT. NNO FOR NOW
[2019-07-28] MEDS: Magnesium 1GM/D5W 100ML PREMIX 100 ML IV SCH ×2 (10:36→11:40)
--- NOTE | 2019-07-28 10:58 | NUR ---
RN NOTE ESTABLISHED A SECOND IV SITE ON THE RIGHT FA #22, TKO FOR ANTIBIOTICS AND MG REPLACEMENTS
--- NOTE | 2019-07-28 14:44 | NUR ---
RN NOTE SON AT BEDSIDE, WAS REQUESTING IF POSSIBLE, WE CAN START FEEDING THE PATIENT THROUGH HIS MOUTH WHILE WAITING FOR THE GT SITE TO HEAL. SHAWNA MADE AWARE, OK TO ORDER SWALLOW EVAL. ORDER CARRIED OUT
[2019-07-28 16:00] VITALS: BP 110/67
--- NOTE | 2019-07-28 18:48 | NUR ---
RN CLOSING NOTE PATIENT, AWAKE AND ALERT. SWEDISH SPEAKING. NO COMPLAINS OF ANY DISTRESS AT THIS TIME. ALL MEDS GIVEN. ALL NEEDS MET. REPOSITIONED PER PROTOCOL. WOUND CARE ORDERED. ON ROOM AIR, SATING WELL. X1 BM NOTED. ON D5 HALF NS AT 75 ML/HR. STILL NPO. MG REPLACED PER PHARMACY. ALL IV SITE PATENT, INTACT AND FLUSHING WELL. WILL ENDORSE TO NOC SHIFT FOR GALDINO
--- NOTE | 2019-07-28 19:30 | NUR ---
MS RN NOTES PATIENT IN BED, AWAKE AND ORIENTED X 3. SINHALA SPEAKING. SON AT BEDSIDE. BREATHING EVEN AND UNLABORED ON ROOM AIR. SHOWS NO SIGNS OF ACUTE RESPIRATORY DISTRESS, NO ACUTE PAIN. IV ON L HAND 20G RUNNING D5 1/2 NS AT 75ML/HR. SHOWS NO SIGNS OF INFILTRATION, NO REDNESS. GTUBE SITE IS HEALING, WITH DRAINAGE AND PUS, ORDERED OPEN TO AIR. SAFETY PRECAUTIONS IN PLACE. BED IN LOWEST POSITION, LOCKED, AND CALL LIGHT KEPT WITHIN REACH. WILL CONTINUE TO MONITOR.
[2019-07-28 20:00] VITALS: BP 127/73
[2019-07-28] MEDS: ENOXAPARIN SODIUM 40 MG/0.4 ML DISP.SYRIN SQ SCH (21:00)
[2019-07-29] MEDS: VANCOMYCIN 500 MG in IV D5W 100ml IV SCH ×2 (01:16→11:59)
[2019-07-29 04:00] VITALS: BP 129/78
[2019-07-29] MEDS: IV D5/0.45 NACL 1,000 ML IV PRN (05:19)
[2019-07-29] MEDS: MEROPENEM 500 MG in IV NS 0.9% 100 ML IV SCH ×2 (05:22→17:25)
[2019-07-29 06:23] LABS: BASOPHILS % (AUTO) 0.6 % (0.0-2.0); EOSINOPHILS % (AUTO) 1.4 % (0.0-6.0); HEMATOCRIT 32 % (39-51); HEMOGLOBIN 11.2 g/dL (13.5-17.5); LYMPHOCYTES # (AUTO) 1.2 /CMM (0.8-4.8); LYMPHOCYTES % (AUTO) 25.1 % (20.0-44.0); MEAN CORPUSCULAR HGB CONC 35 g/dl (31.0-36.0); MEAN CORPUSCULAR VOLUME 85 fL (80-96); MONOCYTES # (AUTO) 0.3 /CMM (0.1-1.30); MONOCYTES % (AUTO) 6.9 % (2.0-12.0); NEUTROPHILS # (AUTO) 3.3 /CMM (1.8-8.9); PLATELET COUNT (AUTO) 166 /CMM (150-450); RED BLOOD CELL COUNT(AUTO) 3.81 MIL/uL (4.5-6.0)
[2019-07-29 06:41] LABS: CALCIUM, SERUM 8.5 mg/dL (8.5-10.1); CREATININE 0.6 mg/dL (0.6-1.3); MAGNESIUM 2.2 mg/dL (1.8-2.4); PHOSPHORUS 2.9 mg/dL (2.5-4.9); POTASSIUM 3.6 mmol/L (3.5-5.1)
--- NOTE | 2019-07-29 06:48 | NUR ---
MS RN NOTES PATIENT IN BED, ASLEEP, ALERT AND ORIENTED X 3. TAJIK SPEAKING. BREATHING EVEN AND UNLABORED ON ROOM AIR. SHOWS NO SIGNS OF ACUTE RESPIRATORY DISTRESS, NO ACUTE PAIN. IV ON L HAND 20G RUNNING D5 1/2 NS AT 75ML/HR. SHOWS NO SIGNS OF INFILTRATION, NO REDNESS. GTUBE SITE IS HEALING, WITH DRAINAGE AND PUS, ORDERED OPEN TO AIR. ALL DUE MEDICATIONS GIVEN. SAFETY PRECAUTIONS IN PLACE. BED IN LOWEST POSITION, LOCKED, AND CALL LIGHT KEPT WITHIN REACH. WILL ENDORSE TO ONCOMING NURSE.
[2019-07-29 08:00] VITALS: BP_SYST 119; BP_SYST 128; BP_DIAS 68; BP_DIAS 72
[2019-07-29] MEDS: PANTOPRAZOLE 40 MG TABLET.DR PO SCH (08:13)
[2019-07-29] MEDS ORDERED: TPN/PPN PER PHARMACY XX PRN (12:00)
--- NOTE | 2019-07-29 12:17 | NUR ---
appeared alert, limited commands of uzbek, " yes, or no". per son's report, used to take everything by mouth, since hospitalized, GT inserted, stopped eating. Swallowing eval by speech this morning, patient did not comply, secondary to advanced dementia, or did he not understand what is going on? Remains NPO, old peg out, with beauchamp #14 placed to keep the tract open, around GT site, red, swollen, but no oozage. Site cleansed with NS, and dry dressing applied. Patient has no wound on his body.```````````````````````````````````````````````````
[2019-07-29] MEDS ORDERED: FEE TPN 1 MIN EA MC ONE (13:26)
[2019-07-29] MEDS ORDERED: DEXTROSE 50%-WATER 50 ML DISP.SYRIN IV PRN (13:30)
[2019-07-29] MEDS ORDERED: TPN #1 IV PRN ×6 (14:00)
--- NOTE | 2019-07-29 15:28 | NUR ---
1525 TPN INITIATED, AT THE RATE OF 40CC PER HOUR, AND IVF DECREASED TO 35CC . BS WILL BE CHECKED AT 1800, IF MORE THAN 300, WILL NOTIFY THE PHARMACIST TO READJUST THE RATE. WILL MONITOR
[2019-07-29 16:00] VITALS: BP 130/74
[2019-07-29] MEDS: BLOOD SUGAR DIAGNOSTIC 1 EACH STRIP IN SCH (17:26)
--- NOTE | 2019-07-29 19:30 | NUR ---
MS RN Receive pt's peripheral intravenous left wrist 20 infiltrated at this time. TPN transferred to R wrist 22. will notify hospitalist to order midline. PIV at L wrist 20 inserted for IV fluids one attempt. will continue to monitor Addendum: 07/30/19 at 0650 by LYNETTE FONTANEZ RN LEFT FOREARM 20 PERIPHERAL IV INFILTRATED NOT LEFT WRIST 20
--- NOTE | 2019-07-29 19:45 | NUR ---
SWELLING NOTED TO LEFT WRIST FROM IVP WARM COMPRESS PROVIDED. WILL CONTINUE TO MONITOR Addendum: 07/30/19 at 0641 by LYNETTE FONTANEZ RN LEFT FOREARM NOT LEFT WRIST
--- NOTE | 2019-07-29 19:48 | NUR ---
RECEIVE PT IN BED A/O X 3 STABLE SAFETY MEASURES IN PLACE. WILL CONTINUE TO MONITOR
[2019-07-29 20:00] VITALS: BP 113/70
--- NOTE | 2019-07-29 20:00 | NUR ---
PAGED DIRECTOR OF ARCHIVES FOR MIDLINE PLACEMENT
[2019-07-29] MEDS: ENOXAPARIN SODIUM 40 MG/0.4 ML DISP.SYRIN SQ SCH (21:33)
--- NOTE | 2019-07-29 23:00 | NUR ---
PER COOK FISHING VESSEL NO MIDLINE NURSE AVAILABLE
--- NOTE | 2019-07-30 00:27 | NUR ---
PAGED AND CLARIFIED HOSPITALIST IF HE WOULD LIKE TO CONTINUE FEEDING FROM THE NURSING FACILITY. PER EVELINA QUINTEROS, ORDER CONTINUE FEEDING FROM THE FACILITY ISOSOURCE CHANGE TO JEVITY AT 40CC/HR DIETARY CONSULT AT AM. READ BACK AND VERIFIED ORDERS NOTED AND CARRIED OUT Addendum: 07/30/19 at 0031 by LYNETTE FONTANEZ RN MISTAKEN ENTRY: THIS CHARTING IS FOR DIFFERENT PATIENT PLEASE DISREGARD
[2019-07-30] MEDS: VANCOMYCIN 500 MG in IV D5W 100ml IV SCH ×2 (00:42→13:11)
[2019-07-30] MEDS: BLOOD SUGAR DIAGNOSTIC 1 EACH STRIP IN SCH ×5 (01:32→23:52)
[2019-07-30] MEDS: INSULIN REGULAR, HUMAN 100 UNIT/ML 3 ML VIAL SQ PRN ×2 (01:32→05:23)
[2019-07-30 04:00] VITALS: BP 107/71
[2019-07-30] MEDS: IV D5/0.45 NACL 1,000 ML IV PRN (04:07)
[2019-07-30] MEDS: MEROPENEM 500 MG in IV NS 0.9% 100 ML IV SCH ×2 (05:02→17:56)
[2019-07-30 06:19] LABS: BASOPHILS % (AUTO) 0.4 % (0.0-2.0); HEMATOCRIT 32 % (39-51); LYMPHOCYTES # (AUTO) 1.2 /CMM (0.8-4.8); LYMPHOCYTES % (AUTO) 22.4 % (20.0-44.0); MEAN CORPUSCULAR HGB CONC 35 g/dl (31.0-36.0); MEAN CORPUSCULAR VOLUME 85 fL (80-96); MONOCYTES # (AUTO) 0.4 /CMM (0.1-1.30); MONOCYTES % (AUTO) 7.6 % (2.0-12.0); NEUTROPHILS # (AUTO) 3.6 /CMM (1.8-8.9); NEUTROPHILS % (AUTO) 68.6 % (43.0-81.0); PLATELET COUNT (AUTO) 181 /CMM (150-450); RED BLOOD CELL COUNT(AUTO) 3.75 MIL/uL (4.5-6.0); WHITE BLOOD COUNT (AUTO) 5.3 K/uL (4.3-11.0)
--- NOTE | 2019-07-30 06:41 | NUR ---
PT SLEPT WELL, NEEDS ATTENDED AND ANTICIPATED, KEPT CLEAN, DRY AND COMFORTABLE AT ALL TIMES. AM CARE RENDERED. NO APPARENT DISTRESS, PT STABLE. TOLERATING TPN. SAFETY MEASURES IN PLACE. WILL ENDORSE TO NEXT SHIFT POC. Addendum: 07/30/19 at 0649 by LYNETTE FONTANEZ RN LEFT FOREARM SWELLING SUBSIDING.
[2019-07-30 06:42] LABS: CALCIUM, SERUM 8.3 mg/dL (8.5-10.1); CREATININE 0.8 mg/dL (0.6-1.3); MAGNESIUM 1.7 mg/dL (1.8-2.4); PHOSPHORUS 2.6 mg/dL (2.5-4.9); POTASSIUM 3.3 mmol/L (3.5-5.1)
--- NOTE | 2019-07-30 07:00 | NUR ---
CALLED PHARMACIST SPOKE TO [facility]. REPORTED PT DOESN'T HAVE CENTRAL LINE AT THIS TIME. PER [facility] PHARMACIST HOLD TPN TAPER PER PROTOCOL ENDORSE REPORT RECEIVING RN AWARE AND [place] CHARGE NURSE..
[2019-07-30] MEDS: PANTOPRAZOLE 40 MG TABLET.DR PO SCH (07:30)
[2019-07-30 08:00] VITALS: BP 103/70
[2019-07-30] MEDS: Magnesium 1GM/D5W 100ML PREMIX 100 ML IV SCH ×2 (09:40→11:00)
[2019-07-30] MEDS: POTASSIUM CL. PREMIX PERIPHER. 50 ML IV SCH ×2 (09:40→11:00)
--- NOTE | 2019-07-30 10:00 | NUR ---
MS/RN NOTES CONSENT WAS OBTAINED FROM JOHNY NAIK FOR THE PICC LINE INSERTION. CN WITNESS THE CONSENT WITH PRIMARY NURSE. PATIENT CONTINUES TO REMAIN IN STABLE CONDITION. WILL CONTINUE TO MONITOR CLOSELY.
[2019-07-30] MEDS ORDERED: TPN BAG #2 IV PRN ×8 (14:00)
[2019-07-30 16:00] VITALS: BP 122/68
[2019-07-30] MEDS: FAT EMULSION 20% 500 ML in PREMIX 1 EA IV SCH (17:35)
--- NOTE | 2019-07-30 19:02 | NUR ---
MS/RN CLOSING NOTES PATIENT CONTINUES TO REMAIN IN STABLE CONDITION THROUGHOUT THE SHIFT. PROVIDED COMFORT AND SAFETY. NO PAIN OR ACUTE DISTRESS AT THIS TIME. RESPIRATION EVEN AND UNLABORED. SKIN IS DRY WARM TO TOUCH. PICC LINE INSERTED BY PICC LINE NURSE. LIPIDS AND TPN IN PLACE. TOLERATING WELL. PATIENT ABLE TO TOLERATE ATB WELL. NO ADVERSE REACTIONS AT THIS TIME. ALL NEEDS ANTICIPATED. CALL LIGHT WITHIN REACHED. BED LOCKED AND IN LOWEST POSITION. SAFETY MAINTAINED. WILL CONTINUE TO MONITOR CLOSELY. ENDORSED TO PM NURSE FOR GALDINO.
--- NOTE | 2019-07-30 19:10 | NUR ---
RN OPENING NOTES: PATIENT IN BED, AWAKE, AND VERBALLY RESPONSIVE. FRENCH-SPEAKING. NO SOB. NO C/O PAIN. PATIENT HAS CELESTE PICC LINE, (L) WRIST G20, AND (R) WRIST G20; ALL SITES C/D/I. FLUSHING WELL. ON D5 1/2 NS AT 35 MLS/HR AND TPN ORDERED. SAFETY PRECAUTIONS IMPLEMENTED. SIDE RAILS X 2 UP. HOB ELEVATED. BED LOCKED, ALARM ON, AND IN LOW POSITION. CALL LIGHT PLACED WITHIN REACH. WILL CONT. TO MONITOR.
[2019-07-30 20:00] VITALS: BP 132/82
[2019-07-30] MEDS: ENOXAPARIN SODIUM 40 MG/0.4 ML DISP.SYRIN SQ SCH (20:50)
[2019-07-31] MEDS: VANCOMYCIN 500 MG in IV D5W 100ml IV SCH ×2 (00:30→12:06)
[2019-07-31 04:00] VITALS: BP 100/56
[2019-07-31] MEDS: MEROPENEM 500 MG in IV NS 0.9% 100 ML IV SCH ×2 (05:00→17:23)
[2019-07-31] MEDS: BLOOD SUGAR DIAGNOSTIC 1 EACH STRIP IN SCH ×3 (06:00→17:07)
--- NOTE | 2019-07-31 07:05 | NUR ---
RN CLOSING NOTES: PATIENT IN BED, ASLEEP, BUT EASILY AROUSABLE. NO RESPIRATORY DISTRESS. NO C/O PAIN. PATIENT HAS CELESTE PICC LINE, (L) WRIST G20, AND (R) WRIST G20; ALL SITES C/D/I. FLUSHING WELL. ON D5 1/2 NS AT 35 MLS/HR, LIPIDS, AND TPN ORDERED. SAFETY PRECAUTIONS IMPLEMENTED. SIDE RAILS X 2 UP. HOB ELEVATED. BED LOCKED, ALARM ON, AND IN LOW POSITION. TURNED AND REPOSITIONED Q2H DURING SHIFT. PATIENT REFUSED BLOOD DRAW X 1. PER LAB, SHE WILL TRY AGAIN LATER. ENDORSED TO AM SHIFT NURSE FOR CONTINUITY OF CARE.
[2019-07-31 07:36] LABS: BASOPHILS % (AUTO) 0.4 % (0.0-2.0); EOSINOPHILS % (AUTO) 1.7 % (0.0-6.0); HEMATOCRIT 33 % (39-51); HEMOGLOBIN 11.3 g/dL (13.5-17.5); LYMPHOCYTES # (AUTO) 1.3 /CMM (0.8-4.8); LYMPHOCYTES % (AUTO) 17.9 % (20.0-44.0); MEAN CORPUSCULAR HGB CONC 35 g/dl (31.0-36.0); MEAN CORPUSCULAR VOLUME 85 fL (80-96); MONOCYTES # (AUTO) 0.5 /CMM (0.1-1.30); MONOCYTES % (AUTO) 6.8 % (2.0-12.0); NEUTROPHILS # (AUTO) 5.1 /CMM (1.8-8.9); NEUTROPHILS % (AUTO) 73.2 % (43.0-81.0); PLATELET COUNT (AUTO) 179 /CMM (150-450); RED BLOOD CELL COUNT(AUTO) 3.81 MIL/uL (4.5-6.0)
[2019-07-31] MEDS: PANTOPRAZOLE 40 MG TABLET.DR PO SCH (07:41)
[2019-07-31 08:00] VITALS: BP 135/66
[2019-07-31 08:10] LABS: CALCIUM, SERUM 8.2 mg/dL (8.5-10.1); CREATININE 0.8 mg/dL (0.6-1.3)
[2019-07-31] MEDS ORDERED: FAT250EM4 IV (11:58)
[2019-07-31] MEDS ORDERED: TPN ADD IV (11:58)
[2019-07-31] MEDS ORDERED: RXVAN XX (11:58)
[2019-07-31] MEDS ORDERED: ENOX40DI SQ (11:58)
[2019-07-31] MEDS ORDERED: MERO500V21 IV (11:58)
[2019-07-31] MEDS ORDERED: TPN BAG #3 IV PRN ×7 (12:30)
[2019-07-31] MEDS: IV D5/0.45 NACL 1,000 ML IV PRN (13:40)
--- NOTE | 2019-07-31 14:42 | NUR ---
MS/RN NOTES SON AT BEDSIDE INSISTING TO DO HEAD CT BEFORE DISCHARGE. SPOKE TO MICHAEL CHASE WITH ORDERS TO DO HEAD CT STAT W/O CONTRAST. PATIENT CONTINUES TO REMAIN IN STABLE CONDITION. WILL CONTINUE TO MONITOR CLOSELY.
[2019-07-31 16:00] VITALS: BP 126/75
--- NOTE | 2019-07-31 18:56 | NUR ---
MS/RN CLOSING NOTES PATIENT CONTINUES TO REMAIN IN STABLE CONDITION THROUGHOUT THE SHIFT. PROVIDED COMFORT AND SAFETY. NO PAIN OR ACUTE DISTRESS AT THIS TIME. RESPIRATION EVEN AND UNLABORED. SKIN IS DRY WARM TO TOUCH. PATIENT ABLE TO TOLERATE TPN WELL. PATIENT ABLE TO TOLERATE ATB WELL. NO ADVERSE REACTIONS AT THIS TIME. SON ALSO AWARE ABOUT THE MRI THAT IS SCHEDULED FOR TOMORROW PER DR. CHASE. ALL NEEDS ANTICIPATED. CALL LIGHT WITHIN REACHED. BED LOCKED AND IN LOWEST POSITION. SAFETY MAINTAINED. WILL CONTINUE TO MONITOR CLOSELY. ENDORSED TO PM NURSE FOR GALDINO.
--- NOTE | 2019-07-31 19:51 | NUR ---
MS RN NOTES RECEIVED PATIENT ASLEEP IN BED WITH NO DISTRESS NOTED. CALL LIGHT WITHIN REACH. SON AT BEDSIDE. PERIPHERAL LINES AND PICC LINE INTACT AND PATENT. BED IN LOW LOCK SETTING WITH BED ALARM ON AND FUNCTIONING PROPERLY. ROOM FREE OF CLUTTER AND BELONGINGS KEPT NEAR BEDSIDE. WILL CONTINUE TO MONITOR
[2019-07-31 20:00] VITALS: BP 123/75
[2019-07-31 21:00] VITALS: BP 123/75
[2019-07-31] MEDS: ENOXAPARIN SODIUM 40 MG/0.4 ML DISP.SYRIN SQ SCH (21:56)
[2019-08-01] MEDS: BLOOD SUGAR DIAGNOSTIC 1 EACH STRIP IN SCH ×4 (00:14→17:19)
[2019-08-01] MEDS: VANCOMYCIN 500 MG in IV D5W 100ml IV SCH ×2 (00:14→13:00)
[2019-08-01 05:00] VITALS: BP 110/76
[2019-08-01] MEDS: MEROPENEM 500 MG in IV NS 0.9% 100 ML IV SCH ×2 (05:37→17:12)
[2019-08-01] MEDS ORDERED: TPN BAG #4 IV PRN ×7 (06:00)
--- NOTE | 2019-08-01 06:32 | NUR ---
MS RN NOTES PATIENT ASLEEP IN BED WITH NO DISTRESS NOTED. CALL LIGHT WITHIN REACH. PERIPHERAL LINE AND PICC LINE INTACT AND PATENT. ALL DUE MEDS GIVEN ORDERED WITH NO ASE. BED IN LOW LOCK SETTING WITH BED ALARM ON AND FUNCTIONING PROPERLY. ALL BELONGINGS KEPT NEAR BEDSIDE. WILL ENDORSE TO ONCOMING SHIFT.
[2019-08-01 08:00] VITALS: BP 115/64
[2019-08-01 08:59] LABS: CALCIUM, SERUM 7.8 mg/dL (8.5-10.1); CARBON DIOXIDE 23 mmol/L (21-32); CHLORIDE 99 mmol/L (98-107); CREATININE 0.6 mg/dL (0.6-1.3); GLUCOSE 104 mg/dL (74-106); MAGNESIUM 1.8 mg/dL (1.8-2.4); PHOSPHORUS 2.5 mg/dL (2.5-4.9); POTASSIUM 3.8 mmol/L (3.5-5.1); SODIUM SERUM 132 mmol/L (136-145); UREA NITROGEN, BLOOD 16 mg/dL (7-18)
[2019-08-01] MEDS: PANTOPRAZOLE 40 MG TABLET.DR PO SCH (09:11)
[2019-08-01 09:30] LABS: TRIGLYCERIDES 61 mg/dL (30-150)
--- NOTE | 2019-08-01 09:55 | NUR ---
appeared alert, continues NPO until cellulitis around GT resolved. Needs MRI of brain secondary to worsening AMS. Rangel, the son will stop by the hospital to answer all questions on MRI form.
[2019-08-01 13:00] VITALS: BP 124/69
[2019-08-01] MEDS: FAT EMULSION 20% 500 ML in PREMIX 1 EA IV SCH (15:00)
[2019-08-01 16:00] VITALS: BP 124/69
--- NOTE | 2019-08-01 17:42 | NUR ---
per MRI personnel, unable to do it, secondary to patient can't lie flat, MAINTENANCE DEPARTMENT MANAGER notified. Both TPN and LIPID started, via CELESTE midline, both lumens used GT site still oozy, yellowish colored, the site cleansed and dressing applied.
--- NOTE | 2019-08-01 19:40 | NUR ---
MS RN NOTES PATIENT IN BED, AWAKE, ALERT AND ORIENTED X 1. BREATHING EVEN AND UNLABORED ON ROOM AIR. SHOWS NO SIGNS OF ACUTE RESPIRATORY DISTRESS, NO ACUTE PAIN. IV CELESTE PICC RUNNING TPN 50, LIPID 25, AND D5 1/2 35. SHOWS NO SIGNS OF INFILTRATION, NO REDNESS. SAFETY PRECAUTIONS IN PLACE. BED IN LOWEST POSITION, LOCKED, AND CALL LIGHT KEPT WITHIN REACH. WILL CONTINUE TO MONITOR.
[2019-08-01 20:00] VITALS: BP 119/70
[2019-08-01 21:00] VITALS: BP 119/70
[2019-08-01] MEDS: ENOXAPARIN SODIUM 40 MG/0.4 ML DISP.SYRIN SQ SCH (21:20)
--- NOTE | 2019-08-01 23:58 | NUR ---
MS RN NOTES CALL [facility] REGARDING VANCOMYCIN TROUGH. LAST TROUGH LEVEL WAS DONE 07/30 AT 1200. TOTAL OF 5 DOSES HAVE BEEN GIVEN AND NO NEW TROUGH LEVEL ORDER AND ANOTHER VANCOMYCIN IS DUE AT 08/02 AT 0100. [facility] STATE THE ORDER IS DONE WITH [facility], IF NO ORDER WAS GIVEN. [facility] DID NOT HAVE A REASON FOR A NEW ORDER. WILL CONTINUE TO MONITOR.
[2019-08-02] VITALS (7 sets, daily range): BP systolic 110–137; BP diastolic 59–84
[2019-08-02] MEDS: VANCOMYCIN 500 MG in IV D5W 100ml IV SCH ×2 (00:03→12:03)
[2019-08-02] MEDS: BLOOD SUGAR DIAGNOSTIC 1 EACH STRIP IN SCH ×5 (00:03→23:41)
[2019-08-02] MEDS: MEROPENEM 500 MG in IV NS 0.9% 100 ML IV SCH ×2 (05:52→17:13)
[2019-08-02] MEDS ORDERED: TPN BAG #5 IV PRN ×7 (06:00)
[2019-08-02 06:23] LABS: BASOPHILS # (AUTO) 0.1 /CMM (0.0-0.2); BASOPHILS % (AUTO) 0.9 % (0.0-2.0); EOSINOPHILS % (AUTO) 3.7 % (0.0-6.0); HEMATOCRIT 29 % (39-51); HEMOGLOBIN 10.1 g/dL (13.5-17.5); LYMPHOCYTES # (AUTO) 1.2 /CMM (0.8-4.8); LYMPHOCYTES % (AUTO) 19.6 % (20.0-44.0); MEAN CORPUSCULAR HGB CONC 35 g/dl (31.0-36.0); MEAN CORPUSCULAR VOLUME 86 fL (80-96); MONOCYTES # (AUTO) 0.4 /CMM (0.1-1.30); MONOCYTES % (AUTO) 6.2 % (2.0-12.0); NEUTROPHILS # (AUTO) 4.2 /CMM (1.8-8.9); NEUTROPHILS % (AUTO) 69.6 % (43.0-81.0); PLATELET COUNT (AUTO) 143 /CMM (150-450); RED BLOOD CELL COUNT(AUTO) 3.39 MIL/uL (4.5-6.0)
[2019-08-02 06:31] LABS: CALCIUM, SERUM 7.7 mg/dL (8.5-10.1); CREATININE 0.6 mg/dL (0.6-1.3); MAGNESIUM 1.8 mg/dL (1.8-2.4); PHOSPHORUS 2.5 mg/dL (2.5-4.9); POTASSIUM 3.7 mmol/L (3.5-5.1)
--- NOTE | 2019-08-02 06:47 | NUR ---
MS RN NOTES PATIENT IN BED, ASLEEP, ALERT AND ORIENTED X 1. BREATHING EVEN AND UNLABORED ON ROOM AIR. SHOWS NO SIGNS OF ACUTE RESPIRATORY DISTRESS, NO ACUTE PAIN. IV CELESTE PICC RUNNING TPN 50ML/HR, LIPID 25 ML/HR , AND D5 1/2 35ML/HR. SHOWS NO SIGNS OF INFILTRATION, NO REDNESS. ALL DUE MEDICATIONS GIVEN. SAFETY PRECAUTIONS IN PLACE. BED IN LOWEST POSITION, LOCKED, AND CALL LIGHT KEPT WITHIN REACH. WILL ENDORSE TO ONCOMING NURSE.
[2019-08-02] MEDS: PANTOPRAZOLE 40 MG TABLET.DR PO SCH (08:56)
[2019-08-02] MEDS ORDERED: TPN BAG #6 IV PRN ×4 (12:00)
[2019-08-02] MEDS: TPN BAG #6 IV PRN ×5 (12:06)
--- NOTE | 2019-08-02 15:00 | NUR ---
RN NOTE: TPN BAG #5 WAS HANGED AT 12NOON. PHARMACY IS AWARE. ERROR IN SCANNING TPN BAG #6.
--- NOTE | 2019-08-02 19:30 | NUR ---
MS RN OPENING NOTE RECEIVED PATIENT IN BED. A/OX 2. SERBIAN SPEAKING, ABLE TO MAKE BASIC NEEDS KNOWN. TOLERATING ROOM AIR. O2 SAT 94%. RESPIRATIONS ARE EVEN AND UNLABORED. NO S/S SOB NOTED. NO S/S MANIFESTATIONS OF PAIN AT THIS TIME. IN NO APPARENT DISTRESS. IV ACCESS IN [facility] PICC RUNNING TPN@60ML/HR AND D51/2NS@35ML/HR. GTUBE IS PRESENT, SKIN IS RED AND OOZY, DID NOT CHECK PLACEMENT OR FLUSH D/T DX IS LEAKING GTUBE SITE, GTUBE IS CLAMPED. BED IS LOW AND LOCKED, HOB IN SEMI FOWLERS, SIDE RAILS UP X2, BED ALARM ON. CALL LIGHT WITHIN REACH. WILL CONTINUE TO MONITOR. Addendum: 08/03/19 at 0304 by HEATHER KYLE RN ARIAS CATHETER 14F IS IN PLACE OF GTUBE SITE, CLAMPED. PER DANDRE JAIMES TO USE FOR MEDS AND FLUSHES IF NECESSARY, BUT NO FEEDING.
[2019-08-02] MEDS: MUPIROCIN OINT 2% 22 GM TUBE TP SCH (20:38)
[2019-08-02] MEDS: ENOXAPARIN SODIUM 40 MG/0.4 ML DISP.SYRIN SQ SCH ×2 (20:39→20:53)
--- NOTE | 2019-08-02 20:53 | NUR ---
MS RN NOTE DID NOT ADMINISTERED SCHEDULED MED LOVENOX 40MG D/T PATIENT REFUSED, EXPLAINED RISK AND BENEFITS, STILL REFUSED. WILL CONTINUE TO MONITOR.
[2019-08-03 04:00] VITALS: BP 113/72
[2019-08-03] MEDS: TPN BAG #6 IV PRN ×5 (04:25)
[2019-08-03] MEDS: IV D5/0.45 NACL 1,000 ML IV PRN (04:25)
[2019-08-03 05:00] VITALS: BP 113/72
[2019-08-03] MEDS: BLOOD SUGAR DIAGNOSTIC 1 EACH STRIP IN SCH ×3 (05:21→17:21)
--- NOTE | 2019-08-03 06:03 | NUR ---
MS RN CLOSING NOTE PATIENT IN BED. REMAINS A/OX 2. MONGOLIAN SPEAKING. TOLERATING ROOM AIR. RESPIRATIONS ARE EVEN AND UNLABORED. NO SOB NOTED. NO MANIFESTATIONS OF PAIN THROUGHOUT SHIFT. NO DISTRESS NOTED. IV ACCESS MAINTAINED IN CELESTE PICC RUNNING TPN@60ML/HR AND D51/2NS@35ML/HR. GTUBE IS MAINTAINED WITH ARIAS 14 FR GTUBE REMAINS CLAMPED. BED IS LOW AND LOCKED, HOB IN SEMI FOWLERS, SIDE RAILS UP X2, BED ALARM ON. CALL LIGHT WITHIN REACH. WILL ENDORSE TO NEXT SHIFT.
[2019-08-03 06:19] LABS: BASOPHILS % (AUTO) 0.7 % (0.0-2.0); EOSINOPHILS % (AUTO) 3.5 % (0.0-6.0); HEMATOCRIT 31 % (39-51); HEMOGLOBIN 10.5 g/dL (13.5-17.5); LYMPHOCYTES # (AUTO) 1.1 /CMM (0.8-4.8); LYMPHOCYTES % (AUTO) 21.2 % (20.0-44.0); MEAN CORPUSCULAR HGB CONC 35 g/dl (31.0-36.0); MEAN CORPUSCULAR VOLUME 85 fL (80-96); MONOCYTES # (AUTO) 0.3 /CMM (0.1-1.30); MONOCYTES % (AUTO) 6.8 % (2.0-12.0); NEUTROPHILS # (AUTO) 3.4 /CMM (1.8-8.9); NEUTROPHILS % (AUTO) 67.8 % (43.0-81.0); PLATELET COUNT (AUTO) 155 /CMM (150-450); RED BLOOD CELL COUNT(AUTO) 3.59 MIL/uL (4.5-6.0); WHITE BLOOD COUNT (AUTO) 5.1 K/uL (4.3-11.0)
[2019-08-03] MEDS: MUPIROCIN OINT 2% 22 GM TUBE TP SCH (06:20)
[2019-08-03 07:04] LABS: CALCIUM, SERUM 8.1 mg/dL (8.5-10.1); CREATININE 0.6 mg/dL (0.6-1.3); MAGNESIUM 1.8 mg/dL (1.8-2.4); PHOSPHORUS 2.8 mg/dL (2.5-4.9); POTASSIUM 3.5 mmol/L (3.5-5.1)
[2019-08-03 08:00] VITALS: BP 137/78
[2019-08-03] MEDS: PANTOPRAZOLE 40 MG TABLET.DR PO SCH (08:09)
[2019-08-03] MEDS ORDERED: TPN BAG #7 IV PRN ×7 (12:30)
[2019-08-03] MEDS ORDERED: TPN BAG #8 IV PRN ×5 (12:30)
[2019-08-03] MEDS: FAT EMULSION 20% 500 ML in PREMIX 1 EA IV SCH (13:23)
[2019-08-03 16:00] VITALS: BP 132/79
[2019-08-03] MEDS: INSULIN REGULAR, HUMAN 100 UNIT/ML 3 ML VIAL SQ PRN (17:15)
--- NOTE | 2019-08-03 19:30 | NUR ---
MS/JAVA TECH NOTES 2 EMT ARRIVED AT THE UNIT. ALL DISCHARGE PAPERS WAS GIVEN AND SIGNED. BELONGINGS WAS GIVEN AND SIGNED WELL. FINAL SKIN ASSESSMENT WAS DONE. PHOTOS WAS TAKEN AND WAS PLACED IN THE CHART. REPORT WAS GIVEN TO THE EMT AND TO BALJEET WELCH AT [facility]. CELESTE PICC LINE LEFT INTACT FOR THE FACILITY TO USE FOR TPN. FLUSHING WELL. NO S/S OF INFECTION OR INFILTRATION. PATIENT LEFT THE HOSPITAL IN STABLE CONDITION.
== END 2019-08-03 19:46 | DRG 393 ==
LOC: ER 11:53 → MEDSG1 13:50
PROVIDERS: ADMIT Nurse Practitioner Acute Care; ATTEND Registered Nurse
PROC: 0D20XUZ Change Feeding Device in Upper Intestinal Tract, External Approach (ICD-10-PCS; principal; 2019-07-28)
PROC: 02HV33Z Insertion of Infusion Device into Superior Vena Cava, Percutaneous Approach (ICD-10-PCS; 2019-07-30)
PROC: B548ZZA Ultrasonography of Superior Vena Cava, Guidance (ICD-10-PCS; 2019-07-30)
DX: K94.22 Gastrostomy infection (principal); L89.213 Pressure ulcer of right hip, stage 3; G93.41 Metabolic encephalopathy; E43 Unspecified severe protein-calorie malnutrition; N17.0 Acute kidney failure with tubular necrosis; J18.9 Pneumonia, unspecified organism; L03.311 Cellulitis of abdominal wall; D68.69 Other thrombophilia; E87.2 Acidosis; Z68.1 Body mass index [BMI] 19.9 or less, adult; D63.8 Anemia in other chronic diseases classified elsewhere; F03.90 Unspecified dementia, unspecified severity, without behavioral disturbance, psychotic disturbance, mood disturbance, and anxiety; E87.5 Hyperkalemia; I10 Essential (primary) hypertension; K21.9 Gastro-esophageal reflux disease without esophagitis; Z88.0 Allergy status to penicillin; Z79.01 Long term (current) use of anticoagulants; E88.09 Other disorders of plasma-protein metabolism, not elsewhere classified; Y83.3 Surgical operation with formation of external stoma as the cause of abnormal reaction of the patient, or of later complication, without mention of misadventure at the time of the procedure; Y73.3 Surgical instruments, materials and gastroenterology and urology devices (including sutures) associated with adverse incidents; Y92.129 Unspecified place in nursing home as the place of occurrence of the external cause; R73.9 Hyperglycemia, unspecified; I70.0 Atherosclerosis of aorta; R13.10 Dysphagia, unspecified; Z79.82 Long term (current) use of aspirin
CPT/HCPCS: 36415; 36569; 70450-TC; 71045-TC; 80048-TC; 80053-TC; 80061-TC; 80076-TC; 80202-TC; 82962-TC; 83735-TC; 84100-TC; 84443-TC; 84478-TC; 85025-TC; 85610-TC; 86850-TC; 87040-TC; 87081-TC; 95819-TC; A4216; A6403; C1751; G0378; J1650; J1815; J2185; J3370; J3475; J3480; J3490; J7030; J7042; J7050; J7060

== ENCOUNTER 2019-11-04 11:35 | Inpatient (IN) | payer MEDICARE, OTHER ==
[~2019-11-04] VITALS: Ht 165.1 cm; Wt 54.0 kg
[~2019-11-04 11:35] MED LIST changes: +ENOX40DI SQ; +FAT250EM4 IV; +MERO500V21 IV; -NUTR150016 GT; +OMEP20TA5 GT; -PANT40SU2 GT; +RXVAN XX; -SENN-168 GT; +SENN-261 GT; +TPN ADD IV
[2019-11-04] MEDS ORDERED: FEE PK DOSING 1 MIN EA MC ONE (11:42)
--- NOTE | 2019-11-04 11:45 | NUR ---
pt bib Pa frm snf to er bed 03 per ems, g tube area noted to have some drainage (brown and red) per paramedics vomiting was also noted. 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 awaiting md whitley.
--- NOTE | 2019-11-04 11:57 | NUR ---
dr pena at bedside for eval.
[2019-11-04] MEDS ORDERED: IV NS 0.9% 1,000 ML BAG IV ONE (12:00)
[2019-11-04] MEDS ORDERED: FERR325T23 GT (12:13)
[2019-11-04] MEDS ORDERED: LACT-96 GT (12:13)
[2019-11-04] MEDS ORDERED: ENOX40DI SQ (12:13)
[2019-11-04] MEDS ORDERED: QUERCETIN PO (12:16)
--- NOTE | 2019-11-04 12:42 | NUR ---
iv line started blood drawn and sent to lab.
--- NOTE | 2019-11-04 12:47 | NUR ---
MOVE SHEET SUBMITTED AND CALLED FOR BED.
[2019-11-04 12:51] LABS: BASOPHILS % (AUTO) 0.2 % (0.0-2.0); EOSINOPHILS % (AUTO) 0.1 % (0.0-6.0); HEMATOCRIT 39 % (39-51); HEMOGLOBIN 12.5 g/dL (13.5-17.5); LYMPHOCYTES # (AUTO) 1.1 /CMM (0.8-4.8); MEAN CORPUSCULAR HGB CONC 32 g/dl (31.0-36.0); MEAN CORPUSCULAR VOLUME 87 fL (80-96); MONOCYTES # (AUTO) 0.9 /CMM (0.1-1.30); MONOCYTES % (AUTO) 6.6 % (2.0-12.0); NEUTROPHILS # (AUTO) 11.6 /CMM (1.8-8.9); NEUTROPHILS % (AUTO) 85.1 % (43.0-81.0); PLATELET COUNT (AUTO) 303 /CMM (150-450); RED BLOOD CELL COUNT(AUTO) 4.41 MIL/uL (4.5-6.0); WHITE BLOOD COUNT (AUTO) 13.6 K/uL (4.3-11.0)
[2019-11-04 13:07] LABS: ALBUMIN 2.4 g/dL (3.4-5.0); BILIRUBIN,DIRECT 0.1 mg/dL (0.0-0.2); BILIRUBIN,TOTAL 0.7 mg/dL (0.2-1.0); CALCIUM, SERUM 8.6 mg/dL (8.5-10.1); CREATININE 1.3 mg/dL (0.6-1.3); POTASSIUM 4.5 mmol/L (3.5-5.1); TOTAL PROTEIN, SERUM 7.5 g/dL (6.4-8.2)
--- NOTE | 2019-11-04 13:30 | NUR ---
EPIC CALL x 2
[2019-11-04] MEDS ORDERED: CEFTRIAXONE 1GM BAG (ER ONLY) 50 ML IV ONE ×2 (13:59→14:00)
[2019-11-04] MEDS ORDERED: AZITHROMYCIN 500 MG in IV D5W 250 ML IV ONE (14:00)
--- NOTE | 2019-11-04 14:09 | NUR ---
b/p back to 82/50. dr pena made aware. verbal order for 1L ns bolus. will carry out order.
[2019-11-04] MEDS ORDERED: MAG HYDROX/AL HYDROX/SIMETH 30 ML UDC PO PRN (14:30)
[2019-11-04] MEDS ORDERED: BISACODYL SUPP (10 MG) 10 MG/SUPP.RECT SUPP.RECT RC PRN (14:30)
[2019-11-04] MEDS ORDERED: MAGNESIUM HYDROXIDE 30 ML UDC GT PRN (14:30)
[2019-11-04] MEDS ORDERED: ACETAMINOPHEN 650 MG/20.3 ML UDC GT PRN ×2 (14:30)
[2019-11-04] MEDS ORDERED: Z GUARD REMEDY 2 OZ OINT TP PRN (14:30)
[2019-11-04] MEDS ORDERED: MISCELLANEOUS MED 1 EA EA GT PRN (14:30)
[2019-11-04] MEDS ORDERED: ZOLPIDEM TARTRATE 5 MG TABLET PO PRN (14:30)
[2019-11-04] MEDS ORDERED: ONDANSETRON HCL/PF 4 MG/2 ML VIAL IVP PRN (14:30)
[2019-11-04] MEDS ORDERED: MAGNESIUM HYDROXIDE 30 ML UDC PO PRN (14:30)
[2019-11-04] MEDS ORDERED: HYDROCODONE/APAP 5/325MG 1 EACH TABLET PO PRN (14:30)
[2019-11-04] MEDS ORDERED: NA PHOS,M-B/NA PHOS,DI-BA 1 EA ENEMA RC PRN (14:30)
[2019-11-04 14:51] LABS: B-TYPE NATRIURETIC PEPTIDE 1689 PG/ML (0-125)
[2019-11-04 15:19] LABS: CREATINE KINASE, TOTAL 55 U/L (39-308); FERRITIN 154 ng/mL (8-388)
[2019-11-04 15:22] LABS: C-REACTIVE PROTEIN 7.5 mg/dL (0.0-0.9)
--- NOTE | 2019-11-04 16:55 | NUR ---
report given to frieda vela. pt transported to floor in stable condition.
[2019-11-04] MEDS: PROSOURCE / PROSTAT (PYXIS) 30 ML UDC GT SCH (17:00)
[2019-11-04 17:09] VITALS: BP 95/54
--- NOTE | 2019-11-04 17:44 | NUR ---
CORRECTIVE THERAPY AIDE TEACHER NOTE RECEIVED PATIENT FROM ER WITH DX PNA AND COVID R\O , AWAKE BUT CONFUSED , PLACED ON TELE MONITOR SR HR 70 , ON 3L NC NO SOB NOTED AT THIS TIME,DR BOO AT BEDSIDE ADMISSION ORDERS GIVEN, VS TAKEN , HOSPITAL ORIENTATION GIVEN RT UPPER ARM HL INTACT AND FLUSHED WELL , PLAN OF CARE DISCUSSED WITH PATIENT , WILL CONT TO MONITOR
[2019-11-04] MEDS: VANCOMYCIN 1 GM in IV D5W 250 ML IV SCH (18:32)
[2019-11-04] MEDS: PANTOPRAZOLE 40 MG VIAL IV SCH (18:33)
--- NOTE | 2019-11-04 18:50 | NUR ---
COMMUNITY MARKETING MANAGER NOTE PER DR BOO AND KELLY PATIENT DNR ,ORDER CARRIED OUT
--- NOTE | 2019-11-04 19:30 | NUR ---
RN OPENING NOTES Patient on bed, A/Ox1, on O2 inhalation via NC @ 2LPM, saturating well. No SOB/respiratory distress noted at this time. No s/sx of discomfort noted at this time. GTF noted with redness and trace of blood noted. Held GTF at this time as ordered. Initiated on DVT as indicated. With Vancomycin IV on going at this time. Per AM RN, patient is still to receive Merrem which was due at 1800. AJIT G20 IV line intact, no s/sx of infiltration noted. Kept on bed clean, dry and comfortable. On fall and aspiration precautions. Will continue to monitor accordingly.
[2019-11-04 20:00] VITALS: BP 91/48
[2019-11-04] MEDS: CEFEPIME 2 GM in IV D5W 100 ML IV SCH (20:32)
[2019-11-04] MEDS: SENNOSIDES 8.6 MG TABLET GT SCH (20:44)
[2019-11-04] MEDS: OLANZAPINE 5 MG TABLET GT SCH (21:02)
[2019-11-04] MEDS: IV NS 0.9% 1,000 ML IV SCH (21:30)
[2019-11-05] VITALS (7 sets, daily range): BP systolic 94–116; BP diastolic 55–64
[2019-11-05] MEDS: IV NS 0.9% 1,000 ML IV SCH ×4 (00:30→18:36)
[2019-11-05] MEDS: CEFEPIME 2 GM in IV D5W 100 ML IV SCH ×2 (05:15→17:56)
--- NOTE | 2019-11-05 06:11 | NUR ---
RN CLOSING NOTES Patient asleep, easily awaken. On supplemental O2 to keep SpO2 >92%. On 2LPM via NC at this time, no SOB/respiratory distress noted. On tele monitor with NSR noted. No active bleeding at GT site noted. Afebrile the whole shift, no new unusalities noted. Turned and repositioned accordingly. Kept on bed clean, dry and comfortable. On fall and aspiration precautions. Endorsed.
[2019-11-05 07:34] LABS: BASOPHILS % (AUTO) 0.4 % (0.0-2.0); EOSINOPHILS % (AUTO) 1.7 % (0.0-6.0); HEMATOCRIT 31 % (39-51); HEMOGLOBIN 10.4 g/dL (13.5-17.5); LYMPHOCYTES # (AUTO) 1.6 /CMM (0.8-4.8); LYMPHOCYTES % (AUTO) 18.4 % (20.0-44.0); MEAN CORPUSCULAR HGB CONC 33 g/dl (31.0-36.0); MEAN CORPUSCULAR VOLUME 87 fL (80-96); MONOCYTES # (AUTO) 0.6 /CMM (0.1-1.30); MONOCYTES % (AUTO) 7.5 % (2.0-12.0); NEUTROPHILS # (AUTO) 6.1 /CMM (1.8-8.9); PLATELET COUNT (AUTO) 228 /CMM (150-450); WHITE BLOOD COUNT (AUTO) 8.5 K/uL (4.3-11.0)
[2019-11-05 07:53] LABS: CALCIUM, SERUM 7.5 mg/dL (8.5-10.1); MAGNESIUM 2.1 mg/dL (1.8-2.4); PHOSPHORUS 2.9 mg/dL (2.5-4.9); POTASSIUM 3.6 mmol/L (3.5-5.1)
--- NOTE | 2019-11-05 08:55 | NUR ---
WOUND CARE CONSULT: REVIEWED CHART, NURSING DOCUMENTATION AND ADMISSION PHOTOS WHICH SHOW RT HIP SCAR AND REDNESS AROUND G TUBE SITE, PRESENT ON ADMISSION. RECOMMEND SURGICAL CONSULT. DR MENESES NOTIFIED OF CONSULT REQUEST. PT IS ON ARLEEN ISOFLEX LOW AIRLOSS BED. ALL SKIN PROTECTION RECOMMENDATIONS DISCUSSED WITH NURSING STAFF. WILL SEE PRLuis MELO IN AGREEMENT WITH PLAN OF CARE.
[2019-11-05] MEDS ORDERED: PANTOPRAZOLE 40 MG/PACK PACK GT SCH (09:00)
[2019-11-05] MEDS ORDERED: Medication Not On Formulary EA ([Quercetin] 500 MG) PO SCH (09:00)
[2019-11-05] MEDS: ACETAMINOPHEN 650 MG/20.3 ML UDC GT SCH (09:08)
[2019-11-05] MEDS: THIAMINE HCL 100 MG TABLET GT SCH (09:08)
[2019-11-05] MEDS: MULTIVIT W/MINERALS 1 TAB TABLET GT SCH (09:08)
[2019-11-05] MEDS: PANTOPRAZOLE 40 MG VIAL IV SCH ×2 (09:09→17:54)
[2019-11-05] MEDS: SENNOSIDES 8.6 MG TABLET GT SCH ×2 (09:09→21:55)
[2019-11-05] MEDS: FERROUS SULFATE (325 MG) 325 MG/TAB TABLET GT SCH (09:09)
[2019-11-05] MEDS: PROSOURCE / PROSTAT (PYXIS) 30 ML UDC GT SCH ×2 (09:10→17:00)
[2019-11-05] MEDS: VANCOMYCIN 1 GM in IV D5W 250 ML IV SCH (11:50)
[2019-11-05] MEDS: IPRATROPIUM/ALBUTEROL INHALER IH SCH ×2 (12:25→17:57)
[2019-11-05 13:19] LABS: ABG BASE EXCESS 3.7 mmol/L; ABG OXYGEN SATURATION 90.7 % (92.0-98.5); ABG PCO2 36.3 mmHg (35.0-45.0); ABG PH 7.491 (7.350-7.450); AaDO2 125.7 mmHg; COHb 0.5 % (0.5-1.5); MetHb 0.1 % (0.0-1.5); O2Hb 90.2 % (94.0-97.0); SITE, ABG Right Radial; VENT MODE, BG nasal cannula
--- NOTE | 2019-11-05 14:52 | NUR ---
RT NOTE ABG DRAWN, ANALYZED, AND ENDORSED TO MORENITA DELONG. INCREASED TO 5L NASAL CANNULA FOR SPO2 90%. SPO2 96% ON 5L NASAL CANNULA. MORENITA DELONG AWARE.
--- NOTE | 2019-11-05 19:14 | NUR ---
FILM EXAMINER NOTES PATIENT MOVED TO ROOM 102. IN STABLE CONDITION. CALL LIGHT WITHIN REACH. BED IN LOW LOCKED POSITION. PATIENT S/P THORACENTESIS . NO ADVERSE SIGNS OR SYMPTOMS NOTED. NO ACUTE CHANGES NOTED DURING SHIFT. ENDORSED CARE TO PM SHIFT.
--- NOTE | 2019-11-05 19:45 | NUR ---
RN OPENING NOTES RECEIVED ENDORSEMENT REPORT FROM BALJEET MAZARIEGOS. PER REPORT Pt IS A/OX1, FRENCH SPEAKING ONLY. ON TELE MONITOR, SR. FOUND Pt RESTING IN BED, NO S/S OF ACUTE DISTRESS OR SEVERE SOB NOTED. Pt IS ON 5L NC SAT @94%. R/O COVID TEST STILL PENDING. Pt IS CURRENTLY NPO. GTF IS CURRENTLY ON HOLD FOR NOW, EXCEPT MEDS. PER REPORT GTUBE SITE IS BLEEDING. IV ACCESS ON AJIT #20G, IVF NS @125ML/HR. SAFETY MEASURES IN PLACE. BED LOW, LOCKED, HOB ELEVATED, SIDE RAILS UP, & BED ALARM ON. WILL CONTINUE TO MONITOR Pt's CONDITION AND SAFETY THROUGHOUT THE NIGHT.
--- NOTE | 2019-11-05 21:24 | NUR ---
RN NOTES SPOKE WITH DAYSHIFT BALJEET XAVIER ON THE PHONE TO VERIFY THAT Pt TODD VAZQUEZ WAS THE ONE WHO RECEIVED THE THORACENTESIS EARLIER TODAY.
[2019-11-05] MEDS: OLANZAPINE 5 MG TABLET GT SCH (21:55)
[2019-11-06] VITALS (8 sets, daily range): BP systolic 96–109; BP diastolic 49–56
--- NOTE | 2019-11-06 00:30 | NUR ---
BALJEET BLACK Pt REFUSED HIS SCHEDULED COMBIVENT RESPIMAT INHALER.
[2019-11-06] MEDS: IV NS 0.9% 1,000 ML IV SCH ×2 (02:39→09:56)
--- NOTE | 2019-11-06 02:59 | NUR ---
RN NOTES COVID RESULT NEGATIVE PER LAB C/O MAHESH MIRAMONTES NOTIFIED AND PREFERS PRIMARY MD TO DECIDE ON TRANSFERRING PATIENT TO NON COVID UNIT. FABRIC WORKER, Ricardo STEELE NOTIFIED.
[2019-11-06] MEDS: IPRATROPIUM/ALBUTEROL INHALER IH SCH ×4 (05:54→17:11)
[2019-11-06] MEDS: VANCOMYCIN 1 GM in IV D5W 250 ML IV SCH ×2 (05:54→23:00)
--- NOTE | 2019-11-06 06:00 | NUR ---
RN NOTES PREVIOUS IV ACCESS ON AJIT WAS PULLED OUT. INSERTED NEW IV ACCESS ON LFA #22G. INTACT AND PATENT. FLUSHING WELL.
--- NOTE | 2019-11-06 06:23 | NUR ---
RN CLOSING NOTES NO OTHER SIGNIFICANT CHANGES IN Pt's CONDITION. Pt REMAINS RESTING IN BED. NO S/S OF ACUTE DISTRESS OR SOB NOTED. TELE READING SR 94. O2 SAT CURRENTLY @94% ON 5L O2 VIA NC WITH HUMIDIFIER ON. COVID-19 TEST RESULTS CAME BACK NEGATIVE. NEW IV ACCESS ON LFA #22G. SAFETY MEASURES IN PLACE. BED LOW, LOCKED, HOB ELEVATED, SIDE RAILS UP, & BED ALARM ON. WILL ENDORSE TO DAYSADE RN FOR Pt's GALDINO. Addendum: 11/06/19 at 0659 by ARSLAN NERI RN INCIDENT REPORT FILLED OUT.
[2019-11-06] MEDS: CEFEPIME 2 GM in IV D5W 100 ML IV SCH ×2 (06:57→17:12)
[2019-11-06 07:26] LABS: BASOPHILS % (AUTO) 0.5 % (0.0-2.0); EOSINOPHILS % (AUTO) 0.9 % (0.0-6.0); HEMATOCRIT 30 % (39-51); HEMOGLOBIN 10.1 g/dL (13.5-17.5); LYMPHOCYTES % (AUTO) 12.5 % (20.0-44.0); MEAN CORPUSCULAR HGB CONC 33 g/dl (31.0-36.0); MEAN CORPUSCULAR VOLUME 87 fL (80-96); MONOCYTES # (AUTO) 0.6 /CMM (0.1-1.30); MONOCYTES % (AUTO) 7.5 % (2.0-12.0); NEUTROPHILS # (AUTO) 6.2 /CMM (1.8-8.9); NEUTROPHILS % (AUTO) 78.6 % (43.0-81.0); PLATELET COUNT (AUTO) 221 /CMM (150-450)
--- NOTE | 2019-11-06 07:50 | NUR ---
RN OPENING NOTE PT RECEIVED LAYING DOWN IN THE BED COMFORTABLY.PT IS A/A/O X1. THERE IS NO S/S OF DISTRESS, PT HAS UNLABORED BREATHING. PT IS ON 6 L VIA NC SATING 92%.TELE MONITOR SHOWING HR 80S SR. IV ON L FOREARM 20 G, DRESSING INTACT, DRY AND PATENT,NS RUNING 125 ML/HR. SMALL AMOUNT OF DRAINAGE AND REDNESS PRESENT AROUND G TUBE. SAFETY MEASURES IMPLENTED CALL LIGHT WITHIN REACH, BED AT LOWEST POSITION, AND LOCKED, SIDE RAILS UP X2. WILL CONTINUE TO MONITOR.
[2019-11-06 08:15] LABS: CALCIUM, SERUM 7.7 mg/dL (8.5-10.1); CREATININE 0.9 mg/dL (0.6-1.3); POTASSIUM 3.7 mmol/L (3.5-5.1)
[2019-11-06] MEDS: FERROUS SULFATE (325 MG) 325 MG/TAB TABLET GT SCH (09:30)
[2019-11-06] MEDS: THIAMINE HCL 100 MG TABLET GT SCH (09:30)
[2019-11-06] MEDS: SENNOSIDES 8.6 MG TABLET GT SCH ×2 (09:30→21:36)
[2019-11-06] MEDS: MULTIVIT W/MINERALS 1 TAB TABLET GT SCH (09:30)
[2019-11-06] MEDS: PANTOPRAZOLE 40 MG VIAL IV SCH ×2 (09:31→16:33)
[2019-11-06] MEDS: ACETAMINOPHEN 650 MG/20.3 ML UDC GT SCH (09:31)
[2019-11-06] MEDS: PROSOURCE / PROSTAT (PYXIS) 30 ML UDC GT SCH ×2 (09:32→16:33)
--- NOTE | 2019-11-06 09:49 | NUR ---
telephoto installer note spoke with dr padilla notified that on 6l nc sat 91% awar that bun 44 creat 0.9 on iv as ordered and still have small amt of drainage serosanguineous from g tube site ,ok to hold g tube feeding for now , will cont to monitor
--- NOTE | 2019-11-06 10:27 | NUR ---
MEDICAL ILLUSTRATOR NOTE SPOKE WITH DR PATE S NOTIFIED THAT PATIENT C\O SOB ,CANT BREATH WELL ORDERED ABG, AWARE THAT ON 6L NC SAT 90%
[2019-11-06 11:26] LABS: ABG BASE EXCESS 1.1 mmol/L; ABG OXYGEN SATURATION 90.2 % (92.0-98.5); ABG PCO2 33.8 mmHg (35.0-45.0); ABG PH 7.476 (7.350-7.450); ABG PO2 60.8 mmHg (75.0-100.0); AaDO2 228.8 mmHg; COHb 0.4 % (0.5-1.5); MetHb 0.4 % (0.0-1.5); O2Hb 89.5 % (94.0-97.0); SITE, ABG Right Radial
[2019-11-06] MEDS ORDERED: FUROSEMIDE 20 MG/2 ML VIAL IV ONE (11:30)
--- NOTE | 2019-11-06 11:42 | NUR ---
telemarketing fundraiser note abg done as ordered
--- NOTE | 2019-11-06 14:24 | NUR ---
telegraph dispatcher note on 10l of o2 by simple mask ,sat 92%
--- NOTE | 2019-11-06 18:49 | NUR ---
tele grout sewer line repairer note all needs attended, will cont to monitor closely, cont on 10lof o2 by simple mask ,not in distress
--- NOTE | 2019-11-06 18:54 | NUR ---
telecommunications officer note some result for thoracentesis available, placed in chart ,will f\u with dr medina
[2019-11-06] MEDS: OLANZAPINE 5 MG TABLET GT SCH (21:36)
--- NOTE | 2019-11-06 22:09 | NUR ---
RN NOTES CALLED LAB AND SPOKE TO MAHNAZ REGARDING VANCO TROUGH DUE AT 2200. STATED LAB PERSONNEL NOT THERE AND PROBABLY ON THE WAY HERE. AWAITING FOR LAB PERSONNEL.
--- NOTE | 2019-11-06 23:37 | NUR ---
RN NOTES PATIENT REFUSED LAB DRAW FOR VANCO TROUGH, PATIENT WOULD NOT GIVE HAND TO COMPREHENSIVE OPHTHALMOLOGIST DESPITE DISCUSSION OF RISKS AND BENEFITS. MD MADE AWARE AND STATED OKAY TO HOLD VANCO IV DUE AT 2300. WILL ENDORSE IN THE MORNING. WILL CONT TO MONITOR PT.
[2019-11-07] VITALS (8 sets, daily range): BP systolic 94–130; BP diastolic 48–78
--- NOTE | 2019-11-07 02:06 | NUR ---
RN NOTES PATIENT REMAINS CONFUSED AND DESATURATING DUE TO PATIENT REMOVING MASK DESPITE DISCUSSION OF RISKS AND BENEFITS TRANSLATED BY 2 RN'S SPEAKING/TRANSLATING IN LUXEMBOURGER. MD MADE AWARE AND STATED OKAY TO ORDER BILATERAL SOFT WRIST RESTRAINTS. WILL CONTINUE TO MONITOR PT CLOSELY.
[2019-11-07] MEDS: IPRATROPIUM/ALBUTEROL INHALER IH SCH ×4 (06:00→17:39)
[2019-11-07] MEDS: CEFEPIME 2 GM in IV D5W 100 ML IV SCH ×2 (06:35→17:39)
--- NOTE | 2019-11-07 07:15 | NUR ---
RN NOTES PATIENT IN BED, AWAKE, A/OX1, EQUATORIAL GUINEAN SPEAKING. ON TELE MONITOR SR. STILL ON OXYGEN 10L VIA SIMPLE MASK, TOLERATING WELL, SATURATING >95%. ON BILATERAL SOFT WRIST RESTRAIN FOR PATIENT SAFETY, FREQUENT CHECKS DONE PER PROTOCOL. IV SITE LEFT FA 22G, FLUSHING AND PATENT, SALINE LOCKED. ALL MD ORDERS ATTENDED, ALL NEEDS ANTICIPATED AND MET. REPOSITIONED PATIENT Q2H. GTF ON HOLD (NPO EXCEPT MEDS), MINIMAL LEAKAGE NOTED ON GTUBE SITE WHEN FLUSHING, NO RESIDUAL NOTED, GT CLAMPED. SAFETY MEASURES MAINTAINED; CALL LIGHT WITHIN REACH, SIDE RAILS UP X2, HOB ELEVATED, BED LOCKED AND IN LOW POSITION. ENDORSED TO AM RN FOR GALDINO.
[2019-11-07 07:23] LABS: BASOPHILS # (AUTO) 0.1 /CMM (0.0-0.2); BASOPHILS % (AUTO) 0.7 % (0.0-2.0); EOSINOPHILS % (AUTO) 1.5 % (0.0-6.0); HEMATOCRIT 33 % (39-51); HEMOGLOBIN 10.6 g/dL (13.5-17.5); LYMPHOCYTES # (AUTO) 1.1 /CMM (0.8-4.8); LYMPHOCYTES % (AUTO) 14.9 % (20.0-44.0); MEAN CORPUSCULAR HGB CONC 33 g/dl (31.0-36.0); MEAN CORPUSCULAR VOLUME 88 fL (80-96); MONOCYTES # (AUTO) 0.5 /CMM (0.1-1.30); NEUTROPHILS # (AUTO) 5.7 /CMM (1.8-8.9); NEUTROPHILS % (AUTO) 75.9 % (43.0-81.0); PLATELET COUNT (AUTO) 223 /CMM (150-450); RED BLOOD CELL COUNT(AUTO) 3.71 MIL/uL (4.5-6.0); WHITE BLOOD COUNT (AUTO) 7.5 K/uL (4.3-11.0)
--- NOTE | 2019-11-07 08:00 | NUR ---
RACKER OCTAVE BOARD OPENING NOTES RECEIVED PT ON BED, A/O1-2, ARABIC. RESPIRATION EVEN AND NONLABORED WITH NO ACUTE RESPIRATORY DISTRESS, ON MASK AT 10 LPM SATING 98%. ABD SOFT AND NON DISTENDED WITH ACTIVE BOWEL SOUNDS, ON DIAPER, G-TUBE LEAKING WITH DRESSING, NO RESIDUAL NOTED. NO S/SX OF PAIN AND DISCOMFORT. SKIN WARM TO TOUCH AND DRY. IV SITE AT LFA PATENT IN FLUSHING, SITE WITH NO S/SX OF INFILTRATION. TELE MONITOR SOWS SINUS RHYTHM 85. BED IN LOW LOCKED POSITION, SR X2 UP FOR SAFETY. ON BOTH WRIST SOFT RESTRAINTS DUE TO REMOVING OF MASK CAUSING DESATURATION. PENDING THORACENTESIS CULTURE. WILL CONTINUE TO EVALUATE CARE.
[2019-11-07 08:34] LABS: CREATININE 0.9 mg/dL (0.6-1.3); POTASSIUM 3.9 mmol/L (3.5-5.1)
[2019-11-07] MEDS: PROSOURCE / PROSTAT (PYXIS) 30 ML UDC GT SCH ×2 (09:36→16:24)
[2019-11-07] MEDS: PANTOPRAZOLE 40 MG VIAL IV SCH ×2 (09:36→16:24)
[2019-11-07] MEDS: ACETAMINOPHEN 650 MG/20.3 ML UDC GT SCH (09:36)
[2019-11-07] MEDS: SENNOSIDES 8.6 MG TABLET GT SCH ×2 (09:37→22:45)
[2019-11-07] MEDS: FERROUS SULFATE (325 MG) 325 MG/TAB TABLET GT SCH (09:37)
[2019-11-07] MEDS: MULTIVIT W/MINERALS 1 TAB TABLET GT SCH (09:37)
[2019-11-07] MEDS: THIAMINE HCL 100 MG TABLET GT SCH (09:37)
--- NOTE | 2019-11-07 09:50 | NUR ---
INCOME TAX INVESTIGATOR NOTES DECREASE O2 TO 6 LPM VIA N/C PER DR. PATE. O2 SATING 96%, HOB ELEVATED. WILL CONTINUE TO MONITOR CARE.
[2019-11-07] MEDS: FUROSEMIDE 40 MG/4 ML VIAL IV SCH ×2 (11:09→16:24)
[2019-11-07] MEDS: VANCOMYCIN 1 GM in IV D5W 250 ML IV SCH (16:24)
--- NOTE | 2019-11-07 18:43 | NUR ---
FURNACE PUNCHER CLOSING NOTES PT A/O X1, ETHIOPIAN SPEAKING. NOT IN ACUTE RESPIRATORY DISTRESS, HOB ELEVATED, O2 AT 6LPM VIA N/C SATING >95%. BM X1 TODAY. NO NEW SKIN BREAKDOWN, WARM TO TOUCH AND DRY. NO S/SX OF PAIN AND DISCOMFORT. IV SITE AT LEFT FA H/L PATENT IN FLUSHING, WITH NO S/SX OF INFILTRATION. TELE MONITOR SHOWS SINUS RHYTHM 86 WITH EPISODES OF PVC. ON RESPIRATOR ISOLATION. BED IN LOW LOCKED POSITION, SR X2 UP FOR SAFETY. ACUTE MEDICAL RESTRAINT NOT USE AT THIS TIME, PT CALM WITH NO EPISODES RISK OF MEDICAL INJURY. ENDORSED PT CARE TO NEXT SHIFT.
[2019-11-07] MEDS: OLANZAPINE 5 MG TABLET GT SCH (22:45)
[2019-11-08] VITALS (7 sets, daily range): BP systolic 115–158; BP diastolic 33–78
[2019-11-08] MEDS: IPRATROPIUM/ALBUTEROL INHALER IH SCH ×4 (00:07→18:09)
[2019-11-08] MEDS: CEFEPIME 2 GM in IV D5W 100 ML IV SCH ×2 (05:30→18:34)
[2019-11-08 06:29] LABS: CALCIUM, SERUM 8.4 mg/dL (8.5-10.1); CREATININE 1.1 mg/dL (0.6-1.3); POTASSIUM 3.7 mmol/L (3.5-5.1)
--- NOTE | 2019-11-08 08:05 | NUR ---
RN OPENING NOTES RECEIVED PATIENT IN BED SLEEPING. PT A/O X1, ETHIOPIAN SPEAKING. NOT IN ACUTE RESPIRATORY DISTRESS, HOB ELEVATED, O2 AT 6LPM VIA N/C SATING >95%. NO SKIN BREAKDOWN, WARM TO TOUCH AND DRY. NO S/S OF PAIN OR DISCOMFORT. IV SITE AT LEFT FA H/L PATENT AND FLUSHING WELL WITH NO S/S OF INFILTRATION. TELE MONITOR SHOWS SINUS RHYTHM 86 WITH EPISODES OF PVC. ON RESPIRATOR ISOLATION. BED IN LOW LOCKED POSITION, SR X2 UP FOR SAFETY. ACUTE MEDICAL RESTRAINT NOT USE AT THIS TIME, PT CALM WITH NO EPISODES OF RISK TO SELF INJURY. ENDORSED PT CARE TO NEXT SHIFT.
[2019-11-08] MEDS: THIAMINE HCL 100 MG TABLET GT SCH (09:12)
[2019-11-08] MEDS: FERROUS SULFATE (325 MG) 325 MG/TAB TABLET GT SCH (09:12)
[2019-11-08] MEDS: SENNOSIDES 8.6 MG TABLET GT SCH ×2 (09:12→21:35)
[2019-11-08] MEDS: MULTIVIT W/MINERALS 1 TAB TABLET GT SCH (09:12)
[2019-11-08] MEDS: PANTOPRAZOLE 40 MG VIAL IV SCH ×2 (09:13→18:09)
[2019-11-08] MEDS: PROSOURCE / PROSTAT (PYXIS) 30 ML UDC GT SCH ×2 (09:13→17:42)
[2019-11-08] MEDS: ACETAMINOPHEN 650 MG/20.3 ML UDC GT SCH (09:13)
[2019-11-08] MEDS: VANCOMYCIN 1 GM in IV D5W 250 ML IV SCH (11:29)
--- NOTE | 2019-11-08 19:20 | NUR ---
RN OPENING NOTES PATIENT IN BED, AWAKE, A/OX1, AZERI SPEAKING. ON TELE MONITOR SR WITH HR 80'S. ON OXYGEN 5L VIA SIMPLE MASK, TOLERATING WELL, SATURATING >95%. ON BILATERAL SOFT WRIST RESTRAIN FOR PATIENT SAFETY, FREQUENT CHECKS WILL BE DONE PER PROTOCOL. IV SITE LEFT FA 22G, FLUSHING AND PATENT, SALINE LOCKED. GTF ON HOLD (NPO EXCEPT MEDS), NO RESIDUAL NOTED, GT CLAMPED. SAFETY MEASURES IN PLACE; CALL LIGHT WITHIN REACH, SIDE RAILS UP X2, HOB ELEVATED, BED LOCKED AND IN LOW POSITION. WILL CONT TO MONITOR CLOSELY.
--- NOTE | 2019-11-08 19:22 | NUR ---
RN CLOSING NOTES PATIENT IS SLEEPING IN BED. PT A/O X1, JORDANIAN SPEAKING. NOT IN ACUTE RESPIRATORY DISTRESS, HOB ELEVATED, O2 AT 6LPM VIA N/C SATING AT >98%. NO SKIN BREAKDOWN, WARM TO TOUCH AND DRY. NO S/S OF PAIN OR DISCOMFORT. IV SITE AT LEFT FA H/L PATENT AND FLUSHING WELL WITH NO S/S OF INFILTRATION. TELE MONITOR SHOWS SINUS RHYTHM 86 WITH EPISODES OF PVC. ON RESPIRATOR ISOLATION. BED IN LOW LOCKED POSITION, SR X2 UP FOR SAFETY. ACUTE MEDICAL RESTRAINT ARE ON, PATIENT SKIN IS INTACT. WILL ENDORSE PT CARE TO NEXT SHIFT.
[2019-11-08] MEDS: OLANZAPINE 5 MG TABLET GT SCH (21:35)
[2019-11-09] VITALS: BP_SYST 107; BP_DIAS 55; BP_DIAS 57
--- NOTE | 2019-11-09 | NUR ---
RN NOTES FREQUENT ROUNDING DONE; PATIENT SLEEPING IN BED, NO ACUTE DISTRESS NOTED, SATURATING WNL. WILL CONT TO MONITOR.
[2019-11-09] MEDS: IPRATROPIUM/ALBUTEROL INHALER IH SCH ×2 (00:01→05:59)
[2019-11-09 04:00] VITALS: BP_SYST 124; BP_DIAS 64; BP_DIAS 67
[2019-11-09] MEDS: VANCOMYCIN 1 GM in IV D5W 250 ML IV SCH ×2 (04:45→23:35)
--- NOTE | 2019-11-09 05:57 | NUR ---
RN NOTES PATIENT COMPLAINING OF KNEE PAIN AND STATED "TOO MUCH PAIN" UNABLE TO RATE PAIN BUT NOTED WITH FACIAL GRIMACING. WILL ADMINISTER PRN PAIN MEDICATION.
[2019-11-09 06:11] LABS: BASOPHILS % (AUTO) 0.4 % (0.0-2.0); EOSINOPHILS % (AUTO) 1.7 % (0.0-6.0); HEMATOCRIT 33 % (39-51); HEMOGLOBIN 10.8 g/dL (13.5-17.5); LYMPHOCYTES # (AUTO) 1.3 /CMM (0.8-4.8); LYMPHOCYTES % (AUTO) 15.3 % (20.0-44.0); MEAN CORPUSCULAR HGB CONC 33 g/dl (31.0-36.0); MEAN CORPUSCULAR VOLUME 85 fL (80-96); MONOCYTES # (AUTO) 0.6 /CMM (0.1-1.30); MONOCYTES % (AUTO) 7.2 % (2.0-12.0); NEUTROPHILS # (AUTO) 6.3 /CMM (1.8-8.9); NEUTROPHILS % (AUTO) 75.4 % (43.0-81.0); PLATELET COUNT (AUTO) 273 /CMM (150-450); RED BLOOD CELL COUNT(AUTO) 3.85 MIL/uL (4.5-6.0); WHITE BLOOD COUNT (AUTO) 8.4 K/uL (4.3-11.0)
[2019-11-09] MEDS: CEFEPIME 2 GM in IV D5W 100 ML IV SCH ×2 (06:19→18:08)
[2019-11-09 06:38] LABS: CALCIUM, SERUM 8.5 mg/dL (8.5-10.1); CREATININE 0.9 mg/dL (0.6-1.3); POTASSIUM 3.6 mmol/L (3.5-5.1)
--- NOTE | 2019-11-09 07:05 | NUR ---
RN CLOSING NOTES PATIENT SLEEPING IN BED, BUT EASY TO AROUSE, A/OX1-2. ON TELE MONITOR SR-ST, STILL ON OXYGEN 5L VIA NASAL CANNULA, TOLERATING WELL, SATURATING >95%. ON BILATERAL SOFT WRIST RESTRAIN FOR PATIENT SAFETY, FREQUENT CHECKS DONE PER PROTOCOL. IV RIGHT FA 22G, FLUSHING AND PATENT. ALL MD ORDERS ATTENDED, ALL NEEDS ANTICIPATED AND MET. REPOSITIONED PATIENT Q2H. GTF ON HOLD (NPO EXCEPT MEDS), MINIMAL LEAKAGE NOTED ON GTUBE SITE, GT CLAMPED. SAFETY MEASURES MAINTAINED; CALL LIGHT WITHIN REACH, SIDE RAILS UP X2, HOB ELEVATED, BED LOCKED AND IN LOW POSITION. ENDORSED TO AM RN FOR GALDINO.
--- NOTE | 2019-11-09 07:30 | NUR ---
RN OPENING NOTE RECEIVED PATIENT FROM PM NURSE. PATIENT IS RESTING IN BED, NO DISTRESS NOTED. ON 5L O2 VIA NC, TOLERATING WELL, SATURATING WELL. ON TELE MONITOR WITH SR NOTED. PATIENT IS NPO EXCEPT MEDS , G TUBE IS LEAKING. MD IS AWARE. SL ON RFA, INTACT, PATENT AND FLUSHED WELL. NO COMPLAINTS OF PAIN AT THE MOMENT. PATIENT SAFETY IS MAINTAINED, CALL LIGHT WITHIN REACH, WILL CONTINUE TO MONITOR.
[2019-11-09 08:00] VITALS: BP 124/76
[2019-11-09] MEDS: PANTOPRAZOLE 40 MG VIAL IV SCH ×2 (08:53→18:02)
[2019-11-09] MEDS: BUMETANIDE (1 MG) 1 MG TABLET PO SCH (08:55)
[2019-11-09] MEDS: SENNOSIDES 8.6 MG TABLET GT SCH ×2 (08:55→21:34)
[2019-11-09] MEDS: THIAMINE HCL 100 MG TABLET GT SCH (08:55)
[2019-11-09] MEDS: FERROUS SULFATE (325 MG) 325 MG/TAB TABLET GT SCH (08:55)
[2019-11-09] MEDS: MULTIVIT W/MINERALS 1 TAB TABLET GT SCH (08:55)
[2019-11-09] MEDS: ACETAMINOPHEN 650 MG/20.3 ML UDC GT SCH (08:55)
[2019-11-09] MEDS: PROSOURCE / PROSTAT (PYXIS) 30 ML UDC GT SCH ×2 (09:00→18:02)
--- NOTE | 2019-11-09 11:00 | NUR ---
RN NOTE TRANSFERRED PATIENT TO [facility], REPORT GIVEN TO BALJEET TALLEY. PATIENT SAFETY WAS MAINTAINED, WAS ON OXYGEN DURING TRANSFER AND CONNECTED HIM BACK TO OXYGEN BEFORE LEAVING THE ROOM. MAYANK RECEIVED THE PATIENT, ENDORSED FOR CONTINUITY OF CARE.
--- NOTE | 2019-11-09 11:05 | NUR ---
RECEIVED PT. FROM LUCINA.VS STABLE.
--- NOTE | 2019-11-09 11:10 | NUR ---
IN NO ACUTE DISTRESS.MADE COMFORTABLE.PER RN KATEY VERDUGO,PT'S BLANKET MISSING.
--- NOTE | 2019-11-09 12:00 | NUR ---
wolf [employer]bott support representative informed that pt. has had minimal fluid intake since admission-states he will take care of it.
[2019-11-09] MEDS: ALBUTEROL FS 2.5 MG/0.5 ML VIAL.NEB NEB SCH ×2 (13:30→20:24)
[2019-11-09] MEDS: IPRATROPIUM NEB FS 0.5 MG/2.5 ML AMPUL.NEB NEB SCH ×2 (13:30→20:24)
[2019-11-09 16:00] VITALS: BP 114/66
--- NOTE | 2019-11-09 16:00 | NUR ---
RT NOTE INITIAL 1300 TX NOT GIVEN DUE TO NEXT TX BEING TOO CLOSE. WILL START INITIAL TX @ 1900. NO SIGNS OF RESPIRATORY DISTRESS AT THIS TIME. 98% SAT 83 HR.
[2019-11-09] MEDS: IV D5/ 0.9% NACL 1,000 ML IV PRN (18:43)
--- NOTE | 2019-11-09 19:30 | NUR ---
MS/RN OPENING NOTES: RECEIVED PATIENT RESTING IN BED, NO DISTRESS NOTED. ON 4L O2 VIA NC, TOLERATING WELL, SATURATING WELL AT 95%. PATIENT IS NPO EXCEPT MEDS, G TUBE IS LEAKING. MD IS AWARE. AWAITING F/U WITH DR. RILEY PER DR. LOPEZ. RFA IV SITE LOOKS INFILTRATED. APPLIED ICE PACK, ELEVATED THE EXTREMITY TO PREVENT SWELLING. WILL START ANOTHER IV LINE. NO COMPLAINTS OF PAIN AT THE MOMENT. PATIENT SAFETY IS MAINTAINED, CALL LIGHT WITHIN REACH, WILL CONTINUE TO MONITOR.
[2019-11-09 20:00] VITALS: BP 121/69
--- NOTE | 2019-11-09 20:12 | NUR ---
MS/RN NOTES: PT.'S SON SLADE CALLED REGARDING PATIENT'S CONDITION. SON WANTS TO BE UPDATED TOMORROW MORNING AFTER DOCTORS MAKE THEIR ROUNDS. CONTACT NUMBER IS [phone].
[2019-11-09 20:21] VITALS: BP 121/69
[2019-11-09] MEDS: OLANZAPINE 5 MG TABLET GT SCH (21:34)
--- NOTE | 2019-11-09 23:31 | NUR ---
MS/RN NOTES: VANCO TROUGH LEVELS RESULTED 18. WILL CONTINUE ADMINISTRATION OF VANCOMYCIN 1GM.
[2019-11-10] MEDS: IPRATROPIUM NEB FS 0.5 MG/2.5 ML AMPUL.NEB NEB SCH ×4 (01:58→20:05)
[2019-11-10] MEDS: ALBUTEROL FS 2.5 MG/0.5 ML VIAL.NEB NEB SCH ×4 (01:58→20:05)
[2019-11-10] MEDS: CEFEPIME 2 GM in IV D5W 100 ML IV SCH ×2 (05:35→18:05)
[2019-11-10 06:40] LABS: BASOPHILS % (AUTO) 0.6 % (0.0-2.0); EOSINOPHILS % (AUTO) 1.2 % (0.0-6.0); HEMATOCRIT 33 % (39-51); HEMOGLOBIN 10.7 g/dL (13.5-17.5); LYMPHOCYTES # (AUTO) 0.9 /CMM (0.8-4.8); LYMPHOCYTES % (AUTO) 11.4 % (20.0-44.0); MEAN CORPUSCULAR HGB CONC 33 g/dl (31.0-36.0); MEAN CORPUSCULAR VOLUME 86 fL (80-96); MONOCYTES # (AUTO) 0.8 /CMM (0.1-1.30); MONOCYTES % (AUTO) 9.9 % (2.0-12.0); NEUTROPHILS # (AUTO) 6.4 /CMM (1.8-8.9); NEUTROPHILS % (AUTO) 76.9 % (43.0-81.0); PLATELET COUNT (AUTO) 244 /CMM (150-450); RED BLOOD CELL COUNT(AUTO) 3.79 MIL/uL (4.5-6.0); WHITE BLOOD COUNT (AUTO) 8.3 K/uL (4.3-11.0)
--- NOTE | 2019-11-10 06:55 | NUR ---
MS/RN CLOSING NOTES: PATIENT RESTING IN BED, A/OX1. ON OXYGEN 4L VIA NASAL CANNULA, TOLERATING WELL, SATURATING >95%. ON BILATERAL SOFT WRIST RESTRAIN FOR PATIENT SAFETY, FREQUENT CHECKS DONE PER PROTOCOL. RENEWED AT 0207. IV LEFT HAND 20G, FLUSHING AND PATENT. INFUSING D5NS @75MLS/HR. ALL MD ORDERS ATTENDED, ALL NEEDS ANTICIPATED AND MET. REPOSITIONED PATIENT Q2H. GTF ON HOLD (NPO EXCEPT MEDS), MINIMAL LEAKAGE NOTED ON GTUBE SITE, GT CLAMPED. SAFETY MEASURES MAINTAINED; CALL LIGHT WITHIN REACH, SIDE RAILS UP X2, HOB ELEVATED, BED LOCKED AND IN LOW POSITION. WILL ENDORSE TO AM RN FOR GALDINO.
[2019-11-10 07:07] LABS: BILIRUBIN,TOTAL 0.5 mg/dL (0.2-1.0); CALCIUM, SERUM 8.4 mg/dL (8.5-10.1); MAGNESIUM 1.8 mg/dL (1.8-2.4); PHOSPHORUS 2.1 mg/dL (2.5-4.9); POTASSIUM 3.3 mmol/L (3.5-5.1); TOTAL PROTEIN, SERUM 7.3 g/dL (6.4-8.2)
--- NOTE | 2019-11-10 07:30 | NUR ---
ms rn received on bed, awake,alert,oriented x1,not in any form of distress, respirations even and unlabored,no sob noted, g tube intact w/ slight leaking, no residual noted,all needs attended.
[2019-11-10 08:00] VITALS: BP 114/62
--- NOTE | 2019-11-10 08:00 | NUR ---
ms rn due meds given,tolerated well.
[2019-11-10] MEDS: THIAMINE HCL 100 MG TABLET GT SCH (09:11)
[2019-11-10] MEDS: SENNOSIDES 8.6 MG TABLET GT SCH ×2 (09:11→21:06)
[2019-11-10] MEDS: PANTOPRAZOLE 40 MG VIAL IV SCH ×2 (09:11→15:56)
[2019-11-10] MEDS: BUMETANIDE (1 MG) 1 MG TABLET PO SCH (09:12)
[2019-11-10] MEDS: MULTIVIT W/MINERALS 1 TAB TABLET GT SCH (09:12)
[2019-11-10] MEDS: FERROUS SULFATE (325 MG) 325 MG/TAB TABLET GT SCH (09:12)
[2019-11-10] MEDS: PROSOURCE / PROSTAT (PYXIS) 30 ML UDC GT SCH ×2 (09:14→15:55)
[2019-11-10] MEDS: ACETAMINOPHEN 650 MG/20.3 ML UDC GT SCH (09:16)
[2019-11-10] MEDS ORDERED: POTASSIUM CHLORIDE 20 MEQ TAB.PRT.SR PO SCH (11:00)
[2019-11-10] MEDS ORDERED: NEUTRA PHOS 1 POWD.PACKET NG ONE (11:30)
--- NOTE | 2019-11-10 14:00 | NUR ---
ms rn on bed, no distress noted.
[2019-11-10] MEDS: VANCOMYCIN 1 GM in IV D5W 250 ML IV SCH (15:56)
[2019-11-10 16:00] VITALS: BP 111/68
--- NOTE | 2019-11-10 18:48 | NUR ---
ms rn on bed, no distress noted.
--- NOTE | 2019-11-10 19:15 | NUR ---
MS RN NOTES RECEIVED ON BED WITH MASK ON,BREATHING REGULAR,NOT IN ANY FORM OF DISTRESS,O2 IN USED AT 4L/NC TO KEEP O2 SAT ABOVE 90%,IVF D5NS AT 75ML/HER RATE,SITE PATENT ON LEFT HAND.ON BILATERAL SOFT WRIST RESTRAINTS FOR SAFETY.NO SIGNS OF OCCLUSIONS NOTED.DNR STATUS.WILL CONTINUE TO MONITOR STATUS.
[2019-11-10 20:00] VITALS: BP 115/52
[2019-11-10 20:37] VITALS: BP 115/52
[2019-11-10] MEDS: OLANZAPINE 5 MG TABLET GT SCH (21:06)
[2019-11-11] MEDS: IPRATROPIUM NEB FS 0.5 MG/2.5 ML AMPUL.NEB NEB SCH ×4 (00:36→20:08)
[2019-11-11] MEDS: ALBUTEROL FS 2.5 MG/0.5 ML VIAL.NEB NEB SCH ×4 (00:36→20:08)
[2019-11-11] MEDS: CEFEPIME 2 GM in IV D5W 100 ML IV SCH ×2 (05:21→17:05)
--- NOTE | 2019-11-11 06:09 | NUR ---
MS RN NOTES SLEPT WITH INTERVALS,NO SIGNIFICANT CHANGE IN STATUS.IVF INFUSING ON LEFT HAND,GT SITE DRESSING INTACT AND DRY.GT REMAINS CLAMPED,AWAITING TO BE SEEN BY BY DR RILEY,REGARDING LEAKING GT SITE.REPOSITION PER PROTOCOL.NEEDS ATTENDED.
[2019-11-11 06:41] LABS: PHOSPHORUS 2.7 mg/dL (2.5-4.9); POTASSIUM 3.6 mmol/L (3.5-5.1)
--- NOTE | 2019-11-11 07:30 | NUR ---
MS/RN Opening Note Received patient AO x 1 confused, able to responds all stimuli. Does no appears pain or discomfort. Respiratory even and unlabored with oxygen at 4LPM. Skin is warm to touch, kept clean/dry, intact IV site running D5NS at 75 ml. Kept in lock wheel and low position of the bed with elevated head of bed. Call light within reach, will continue to monitor.
[2019-11-11 08:00] VITALS: BP 108/63
[2019-11-11] MEDS: THIAMINE HCL 100 MG TABLET GT SCH (08:13)
[2019-11-11] MEDS: PANTOPRAZOLE 40 MG VIAL IV SCH ×2 (08:13→17:05)
[2019-11-11] MEDS: BUMETANIDE (1 MG) 1 MG TABLET PO SCH (08:13)
[2019-11-11] MEDS: ACETAMINOPHEN 650 MG/20.3 ML UDC GT SCH (08:13)
[2019-11-11] MEDS: FERROUS SULFATE (325 MG) 325 MG/TAB TABLET GT SCH (08:13)
[2019-11-11] MEDS: MULTIVIT W/MINERALS 1 TAB TABLET GT SCH (08:13)
[2019-11-11] MEDS: SENNOSIDES 8.6 MG TABLET GT SCH ×2 (08:13→22:04)
[2019-11-11] MEDS: PROSOURCE / PROSTAT (PYXIS) 30 ML UDC GT SCH ×2 (08:13→17:05)
[2019-11-11] MEDS: IV D5/ 0.9% NACL 1,000 ML IV PRN (08:58)
[2019-11-11] MEDS: VANCOMYCIN 1 GM in IV D5W 250 ML IV SCH (11:07)
[2019-11-11] MEDS: METOCLOPRAMIDE HCL 10 MG/2 ML VIAL IV SCH ×3 (12:11→23:15)
--- NOTE | 2019-11-11 13:00 | NUR ---
Patient going have EGD and peg procedure for tomorrow, consent sign obtained by Son/Iqra Solares.
[2019-11-11 16:00] VITALS: BP 121/64
--- NOTE | 2019-11-11 18:50 | NUR ---
MS/RN Closing Note Patient in bed, does no appears pain or discomfort, skin is warm to touch, intact IV site running D5 NS at 75 ml/hr. Respiratory even and unlabored in room air. Kept in locked wheel with low position of the bed and elevated head of bed foe secure airway. 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
--- NOTE | 2019-11-11 19:30 | NUR ---
MS RN NOTES RECEIVED ON BED,ON RIGHT SIDE POSITION,NO SOB,O2 IN USED AT 4L/NC TO KEEP O2 SAT ABOVE 90%,PRESENT IVF INFUSING AT 75ML/HR RATE VIA IV PUMP ON RIGHT HAND,SITE PATENT.DNR STATUS.NPO POST MIDNIGHT FOR FOR EGD WITH PEG PLACEMENT IN THE MORNING.WILL CONTINUE TO MONITOR STATUS.
--- NOTE | 2019-11-11 19:45 | NUR ---
MS RN NOTES BILATERAL SOFT WRIST RESTRAINTS IN USE FOR SAFETY.GOOD CIRCULATION ON HAND NOTED.DNR STATUS.
[2019-11-11 20:00] VITALS: BP 164/83
[2019-11-11 20:49] VITALS: BP 164/83
[2019-11-11] MEDS: OLANZAPINE 5 MG TABLET GT SCH (22:04)
[2019-11-12] VITALS (7 sets, daily range): BP systolic 88–112; BP diastolic 42–68
--- NOTE | 2019-11-12 | NUR ---
MS RN NOTES NPO THIS TIME.GT CLAMPED.FOR EGD AND PEG REPLACEMENT AT NOONTIME BY DR RILEY,CONSENT SIGNED ON CHART
[2019-11-12] MEDS: IV D5/ 0.9% NACL 1,000 ML IV PRN (01:21)
[2019-11-12] MEDS: ALBUTEROL FS 2.5 MG/0.5 ML VIAL.NEB NEB SCH ×4 (01:51→19:30)
[2019-11-12] MEDS: IPRATROPIUM NEB FS 0.5 MG/2.5 ML AMPUL.NEB NEB SCH ×4 (01:51→19:30)
[2019-11-12] MEDS: VANCOMYCIN 1 GM in IV D5W 250 ML IV SCH ×2 (04:56→23:00)
[2019-11-12] MEDS: METOCLOPRAMIDE HCL 10 MG/2 ML VIAL IV SCH ×4 (05:11→23:35)
[2019-11-12] MEDS: CEFEPIME 2 GM in IV D5W 100 ML IV SCH ×2 (06:00→17:17)
--- NOTE | 2019-11-12 06:18 | NUR ---
MS RN NOTES ON BED A/O X1,CONFUSED,ON BILATERAL SOFT WRIST RESTRAINTS FOR SAFETY AND INJURY PREVENTION.NPO FOR EGD WITH PEG REPLACEMENT TODAY AT NOONTIME BY DR RILEY.AFEBRILE.IN NO ACUTE DISTRESS.
[2019-11-12 07:30] LABS: BASOPHILS # (AUTO) 0.1 /CMM (0.0-0.2); BASOPHILS % (AUTO) 0.9 % (0.0-2.0); EOSINOPHILS % (AUTO) 1.6 % (0.0-6.0); HEMATOCRIT 34 % (39-51); LYMPHOCYTES # (AUTO) 1.2 /CMM (0.8-4.8); LYMPHOCYTES % (AUTO) 15.5 % (20.0-44.0); MEAN CORPUSCULAR HGB CONC 33 g/dl (31.0-36.0); MEAN CORPUSCULAR VOLUME 87 fL (80-96); MONOCYTES # (AUTO) 0.7 /CMM (0.1-1.30); MONOCYTES % (AUTO) 9.1 % (2.0-12.0); NEUTROPHILS # (AUTO) 5.8 /CMM (1.8-8.9); NEUTROPHILS % (AUTO) 72.9 % (43.0-81.0); PLATELET COUNT (AUTO) 249 /CMM (150-450)
[2019-11-12 07:37] LABS: CALCIUM, SERUM 8.3 mg/dL (8.5-10.1); CREATININE 1.3 mg/dL (0.6-1.3); MAGNESIUM 1.7 mg/dL (1.8-2.4); PHOSPHORUS 2.8 mg/dL (2.5-4.9); POTASSIUM 3.4 mmol/L (3.5-5.1)
[2019-11-12] MEDS: SENNOSIDES 8.6 MG TABLET GT SCH ×2 (09:00→21:24)
[2019-11-12] MEDS: PROSOURCE / PROSTAT (PYXIS) 30 ML UDC GT SCH ×2 (09:00→17:00)
[2019-11-12] MEDS: THIAMINE HCL 100 MG TABLET GT SCH (09:00)
[2019-11-12] MEDS: ACETAMINOPHEN 650 MG/20.3 ML UDC GT SCH (09:00)
[2019-11-12] MEDS: BUMETANIDE (1 MG) 1 MG TABLET PO SCH (09:00)
[2019-11-12] MEDS: MULTIVIT W/MINERALS 1 TAB TABLET GT SCH (09:00)
[2019-11-12] MEDS: FERROUS SULFATE (325 MG) 325 MG/TAB TABLET GT SCH (09:00)
[2019-11-12] MEDS: PANTOPRAZOLE 40 MG VIAL IV SCH ×2 (09:09→17:17)
--- NOTE | 2019-11-12 09:30 | NUR ---
Robin Reed DNP notified recent BP is low ; average 80/45 , saturation 1 on 4l o2 via NC. Awaiting for orders
[2019-11-12] MEDS ORDERED: FENTANYL PF 100MCG/2ML AMPUL ONE (09:38)
[2019-11-12] MEDS ORDERED: ANESTHESIA TRAY IN PYXIS 1 EA TRAY MC ONE (09:46)
--- NOTE | 2019-11-12 10:21 | NUR ---
IV bolus 500 ml as ordered administrated
[2019-11-12] MEDS ORDERED: POTASSIUM CHLORIDE 20 MEQ TAB.PRT.SR PO SCH (10:30)
[2019-11-12] MEDS ORDERED: IV NS 0.9% 500 ML IV ONE (10:30)
[2019-11-12] MEDS: Magnesium 1GM/D5W 100ML PREMIX 100 ML IV SCH ×2 (10:42→14:18)
[2019-11-12] MEDS ORDERED: ALBUTEROL FS 2.5 MG/3 ML VIAL.NEB ONE (12:46)
--- NOTE | 2019-11-12 13:30 | NUR ---
Received pt from OR. Pt awake, VS 88/54 HR 114. Saturation 90 on 4l. Patient received albuterol in OR. Now patient on breathing treatment ,. Will evaluate after breathing treatment
--- NOTE | 2019-11-12 14:01 | NUR ---
Robin Reed notified about patient had only EGD, updated with pt's latest VS
--- NOTE | 2019-11-12 18:29 | NUR ---
Patient resting in bed, a/o x1 , saturation 93% on 6L O2. No sighs of bleeding , no nausea noted. Resume GT-feeding after KUB result posted. A new IV line to the R wrist G22, fluid running as ordered. GT-dressing changed , no bleeding noted. Patient repositioned Q2HR. All needs attended, safety precautions in place. Will endorse to next shift for GALDINO
--- NOTE | 2019-11-12 19:34 | NUR ---
MS RN OPENING NOTES PATIENT RECEIVED RESTING IN BED A/O X 1- TO NAME. ON 6L OF O2 VIA NC WITH BREATHING EVEN AND UNLABORED, NO SOB NOTED. NO SIGNS OF ACUTE DISTRESS. NO COMPLAINTS OF PAIN OR DISCOMFORT- NO FACIAL GRIMACING NOTED. IV LOCATED ON R WRIST #22 RUNNING D5 NS @ 75 ML/HR. GTUBE FEEDING NOT RUNNING. SAFETY PRECAUTIONS IN PLACE WITH BED IN LOWEST POSITION, CALL LIGHT WITHIN REACH, BREAKS ON,SIDE RAILS UP. WILL CONTINUE TO MONITOR THROUGHOUT THE NIGHT.
[2019-11-12] MEDS: OLANZAPINE 5 MG TABLET GT SCH (21:24)
[2019-11-12] MEDS: JEVITY 1.2 CAL 1,000 ML BOTTLE GT PRN (21:37)
--- NOTE | 2019-11-12 21:39 | NUR ---
MS RN NOTES FEEDING XRAY OF ABDOMEN SHOWED NO EVIDENCE OF BOWEL OBSTRUCTION. CONTINUED TUBE FEEDING PER MD ORDER. STARTED GTUBE FEEDING JEVITY 1.2 @ 20ML/HR. GOAL IS 55 ML/HR. WILL CONTINUE TO MONITOR FOR RESIDUAL AND IF PATIENT TOLERATING WELL.
--- NOTE | 2019-11-13 00:07 | NUR ---
RN NOTES LATE ADMINISTRATION OF VANCOMYCIN SCHEDULED FOR 2300. WAITING FOR VANCO TROUGH RESULTS- CALLED LAB FOR RESULTS, STILL NOT READY.
--- NOTE | 2019-11-13 00:08 | NUR ---
MS RN NOTES PATIENT TOLERATING FEEDING WELL, INCREASED FEEDING RATE TO 30 ML/ HR.
--- NOTE | 2019-11-13 00:21 | NUR ---
MS RN NOTES DID NOT ADMINISTER VANCOMYCIN, VANCO TROUGH 31.
[2019-11-13] MEDS: IV D5/ 0.9% NACL 1,000 ML IV PRN (00:22)
[2019-11-13] MEDS: ALBUTEROL FS 2.5 MG/0.5 ML VIAL.NEB NEB SCH ×4 (00:41→19:50)
[2019-11-13] MEDS: IPRATROPIUM NEB FS 0.5 MG/2.5 ML AMPUL.NEB NEB SCH ×4 (00:41→19:50)
[2019-11-13] MEDS: METOCLOPRAMIDE HCL 10 MG/2 ML VIAL IV SCH ×4 (05:01→23:29)
[2019-11-13] MEDS: CEFEPIME 2 GM in IV D5W 100 ML IV SCH ×2 (05:02→17:31)
--- NOTE | 2019-11-13 06:17 | NUR ---
MS RN NOTES PATIENT TOLERATING FEEDING WELL AT RATE OF 50 ML/HR.
--- NOTE | 2019-11-13 07:08 | NUR ---
MS RN CLOSING NOTES PATIENT RECEIVED RESTING IN BED A/O X 1- TO NAME. ON 6L OF O2 VIA NC WITH BREATHING EVEN AND UNLABORED, NO SOB NOTED. NO SIGNS OF ACUTE DISTRESS. NO COMPLAINTS OF PAIN OR DISCOMFORT- NO FACIAL GRIMACING NOTED. IV LOCATED ON R WRIST #22 RUNNING D5 NS @ 75 ML/HR. GTUBE RUNNING JEVITY 1.2 @ 55ML/HR LITTLE TO NO RESIDUAL. SAFETY PRECAUTIONS IN PLACE WITH BED IN LOWEST POSITION, CALL LIGHT WITHIN REACH, BREAKS ON,SIDE RAILS UP. WILL CONTINUE TO MONITOR THROUGHOUT THE NIGHT.
--- NOTE | 2019-11-13 07:24 | NUR ---
MS/RN OPENING NOTES RECEIVED PATIENT ON BED A/O X 1- TO NAME. ON 6L OF O2 VIA NC WITH BREATHING EVEN AND UNLABORED, NO SOB NOTED. NO SIGNS OF ACUTE DISTRESS. NO S/S OF PAIN OR DISCOMFORT- NO FACIAL GRIMACING NOTED. IV LOCATED ON R WRIST #22 RUNNING D5 NS @ 75 ML/HR. GTUBE RUNNING JEVITY 1.2 @ 55ML/HR. SAFETY PRECAUTIONS IN PLACE WITH BED IN LOWEST POSITION, CALL LIGHT WITHIN REACH, BREAKS ON,SIDE RAILS UP. WILL CONTINUE TO MONITOR.
[2019-11-13 07:28] LABS: BASOPHILS # (AUTO) 0.1 /CMM (0.0-0.2); EOSINOPHILS % (AUTO) 1.1 % (0.0-6.0); HEMATOCRIT 28 % (39-51); HEMOGLOBIN 9.2 g/dL (13.5-17.5); LYMPHOCYTES # (AUTO) 1.1 /CMM (0.8-4.8); LYMPHOCYTES % (AUTO) 10.7 % (20.0-44.0); MEAN CORPUSCULAR HGB CONC 33 g/dl (31.0-36.0); MEAN CORPUSCULAR VOLUME 86 fL (80-96); MONOCYTES # (AUTO) 0.6 /CMM (0.1-1.30); MONOCYTES % (AUTO) 6.3 % (2.0-12.0); NEUTROPHILS # (AUTO) 8.2 /CMM (1.8-8.9); NEUTROPHILS % (AUTO) 80.9 % (43.0-81.0); PLATELET COUNT (AUTO) 218 /CMM (150-450); RED BLOOD CELL COUNT(AUTO) 3.24 MIL/uL (4.5-6.0); WHITE BLOOD COUNT (AUTO) 10.1 K/uL (4.3-11.0)
[2019-11-13 07:44] LABS: CALCIUM, SERUM 7.9 mg/dL (8.5-10.1); CARBON DIOXIDE 23 mmol/L (21-32); CHLORIDE 106 mmol/L (98-107); CREATININE 1.5 mg/dL (0.6-1.3); GLUCOSE 151 mg/dL (74-106); POTASSIUM 3.3 mmol/L (3.5-5.1); SODIUM SERUM 137 mmol/L (136-145); UREA NITROGEN, BLOOD 30 mg/dL (7-18)
[2019-11-13 08:00] VITALS: BP 106/50
[2019-11-13] MEDS: PANTOPRAZOLE 40 MG VIAL IV SCH ×2 (08:21→16:56)
[2019-11-13] MEDS: MULTIVIT W/MINERALS 1 TAB TABLET GT SCH (08:21)
[2019-11-13] MEDS: THIAMINE HCL 100 MG TABLET GT SCH (08:21)
[2019-11-13] MEDS: FERROUS SULFATE (325 MG) 325 MG/TAB TABLET GT SCH (08:21)
[2019-11-13] MEDS: SENNOSIDES 8.6 MG TABLET GT SCH ×2 (08:21→21:00)
[2019-11-13] MEDS: PROSOURCE / PROSTAT (PYXIS) 30 ML UDC GT SCH ×2 (08:22→17:29)
[2019-11-13] MEDS: ACETAMINOPHEN 650 MG/20.3 ML UDC GT SCH (08:23)
[2019-11-13] MEDS: POTASSIUM CL. PREMIX PERIPHER. 50 ML IV SCH ×4 (09:31→12:35)
[2019-11-13] MEDS: BUMETANIDE INJ 4 MG in IV D5W 24 ML IV ONE ×2 (11:30→13:23)
[2019-11-13 16:00] VITALS: BP_SYST 104; BP_SYST 133; BP_DIAS 56; BP_DIAS 72
--- NOTE | 2019-11-13 18:53 | NUR ---
MS/RN CLOSING NOTES PATIENT IS ON BED A/O X 1- 2 TO NAME. PATIENT IS ON 5L OF O2 VIA NC WITH SATURATION OF 97% BREATHING EVEN AND UNLABORED. PATIENT IN NO APPARENT RESPIRATORY DISTRESS NOTED. NO S/S OF PAIN OR DISCOMFORT NOTED. IV ACCESS AT RIGHT WRIST # 22 G WITH IV FLUID OF D5 NS @ 75 ML/HR ON AND INFUSING WELL. GTUBE RUNNING JEVITY 1.2 @ 55ML/HR. SEEN AND EXAMINED BY MD WITH ORDERS MADE AND CARRIED OUT. ALL DUE MEDICATION WAS GIVEN. CHECKED AND TURN PATIENT EVERY [address]Y PRECAUTIONS IN PLACE WITH BED IN LOWEST POSITION AND LOCKED. SIDE RAILS UP X2. WILL ENDORSED TO GOVERNMENT RELATIONS MANAGER FOR GALDINO.
[2019-11-13 20:20] VITALS: BP 115/61
[2019-11-13] MEDS: OLANZAPINE 5 MG TABLET GT SCH (21:06)
[2019-11-14] MEDS: IPRATROPIUM NEB FS 0.5 MG/2.5 ML AMPUL.NEB NEB SCH ×4 (00:30→20:25)
[2019-11-14] MEDS: ALBUTEROL FS 2.5 MG/0.5 ML VIAL.NEB NEB SCH ×4 (00:30→20:25)
[2019-11-14] MEDS: METOCLOPRAMIDE HCL 10 MG/2 ML VIAL IV SCH ×4 (05:11→23:09)
[2019-11-14] MEDS: CEFEPIME 2 GM in IV D5W 100 ML IV SCH ×2 (06:18→17:09)
--- NOTE | 2019-11-14 07:30 | NUR ---
RN OPENING NOTE Patient is resting in bed, A/O x1, showing no signs of acute distress or SOB, saturating 92% on 6L NC. G-tube is clean and patent with 10 ml residual, tube feeding jevity 1.2 running @ 55ml/hour. IV line in the right wrist #22g is clean and intact running TKO. Bed is in lowest position, side rails x3 in upright position, fall safety and aspiration precautions enforced. Will continue with plan of care.
[2019-11-14 07:50] LABS: BASOPHILS # (AUTO) 0.1 /CMM (0.0-0.2); BASOPHILS % (AUTO) 0.6 % (0.0-2.0); HEMATOCRIT 30 % (39-51); HEMOGLOBIN 9.9 g/dL (13.5-17.5); LYMPHOCYTES # (AUTO) 0.9 /CMM (0.8-4.8); LYMPHOCYTES % (AUTO) 8.5 % (20.0-44.0); MEAN CORPUSCULAR HGB CONC 33 g/dl (31.0-36.0); MEAN CORPUSCULAR VOLUME 87 fL (80-96); MONOCYTES # (AUTO) 0.8 /CMM (0.1-1.30); NEUTROPHILS # (AUTO) 9.2 /CMM (1.8-8.9); NEUTROPHILS % (AUTO) 82.9 % (43.0-81.0); PLATELET COUNT (AUTO) 230 /CMM (150-450); RED BLOOD CELL COUNT(AUTO) 3.48 MIL/uL (4.5-6.0); WHITE BLOOD COUNT (AUTO) 11.1 K/uL (4.3-11.0)
[2019-11-14 08:00] VITALS: BP 100/53
[2019-11-14 08:09] LABS: ALANINE AMINOTRANSFERASE 22 U/L (12-78); ALBUMIN 1.7 g/dL (3.4-5.0); ALKALINE PHOSPHATASE 61 U/L (46-116); ASPARTATE AMINOTRANSFERASE 36 U/L (15-37); BILIRUBIN,TOTAL 0.3 mg/dL (0.2-1.0); CALCIUM, SERUM 8.2 mg/dL (8.5-10.1); CARBON DIOXIDE 21 mmol/L (21-32); CHLORIDE 106 mmol/L (98-107); CREATININE 1.8 mg/dL (0.6-1.3); GLUCOSE 163 mg/dL (74-106); PHOSPHORUS 1.7 mg/dL (2.5-4.9); SODIUM SERUM 139 mmol/L (136-145); UREA NITROGEN, BLOOD 42 mg/dL (7-18)
[2019-11-14 08:10] LABS: CREATINE KINASE, TOTAL 353 U/L (39-308)
--- NOTE | 2019-11-14 08:34 | NUR ---
RN NOTE RT at bedside, patient completed breathing treatment, saturating 88% on 6L NC. Patient repositioned and suctioned with thick yellow secretions.Patient is currently saturating at 92% on 6L NC. RR 22. Will continue to monitor.
[2019-11-14] MEDS: THIAMINE HCL 100 MG TABLET GT SCH (08:45)
[2019-11-14] MEDS: FERROUS SULFATE (325 MG) 325 MG/TAB TABLET GT SCH (08:45)
[2019-11-14] MEDS: ACETAMINOPHEN 650 MG/20.3 ML UDC GT SCH (08:45)
[2019-11-14] MEDS: PANTOPRAZOLE 40 MG VIAL IV SCH ×2 (08:45→17:07)
[2019-11-14] MEDS: MULTIVIT W/MINERALS 1 TAB TABLET GT SCH (08:45)
[2019-11-14] MEDS: SENNOSIDES 8.6 MG TABLET GT SCH ×2 (08:45→21:20)
[2019-11-14] MEDS: PROSOURCE / PROSTAT (PYXIS) 30 ML UDC GT SCH ×2 (08:47→17:07)
[2019-11-14] MEDS ORDERED: NEUTRA PHOS 1 POWD.PACKET GT ONE (09:30)
[2019-11-14 10:24] LABS: ABG BASE EXCESS -1.3 mmol/L; ABG PCO2 31.5 mmHg (35.0-45.0); ABG PO2 59.8 mmHg (75.0-100.0); AaDO2 210.8 mmHg; COHb 0.4 % (0.5-1.5); O2Hb 90.6 % (94.0-97.0); SITE, ABG Right Radial; VENT MODE, BG 6L N/C
[2019-11-14] MEDS: ACETYLCYSTEINE 10% SOLN 400 MG/4 ML VIAL NEB SCH ×2 (13:31→23:44)
[2019-11-14 16:07] VITALS: BP 100/55
[2019-11-14] MEDS: JEVITY 1.2 CAL 1,000 ML BOTTLE GT PRN (18:11)
--- NOTE | 2019-11-14 19:45 | NUR ---
RN CLOSING NOTE Patient is resting in bed, A/O x1, showing no signs of acute distress or SOB, saturating 96% on 4L simple face mask. G-tube is clean and patent with 10 ml residual, tube feeding jevity 1.2 running @ 55ml/hour. New IV line inserted in the right forearm #22g is clean and intact running TKO. All patient needs met, all due medications given, patient kept clean and dry throughout shift. Bed is in lowest position, side rails x3 in upright position, fall safety and aspiration precautions enforced. Will endorse to night shift manager.
[2019-11-14 20:00] VITALS: BP 118/83
[2019-11-14] MEDS: OLANZAPINE 5 MG TABLET GT SCH (21:20)
--- NOTE | 2019-11-15 00:05 | NUR ---
rn notes/[facility] return call: notified [facility] hospitalist regarding pt's behavior of pulling out lines and gtube, noted leaking gtube, soaked 2washed cloth with gtube feeds whenever pt breathe and turn on sides (gtube feeds came out like water running out from a faucet) , per md telephone order received as follows: place bilateral soft wrist restraint, hold gtube feeding, npo, place abdl binder if theres available tonight, if not it can be place in am , md made aware central supply is close but can ask rn sup to get it for tonight, per md its okay it can be place tomorrow. all orders read back verified and carried out. carnallite plant operator aware of the event/conversation.
[2019-11-15] MEDS: ALBUTEROL FS 2.5 MG/0.5 ML VIAL.NEB NEB SCH ×4 (01:46→20:28)
[2019-11-15] MEDS: IPRATROPIUM NEB FS 0.5 MG/2.5 ML AMPUL.NEB NEB SCH ×4 (01:46→20:28)
[2019-11-15] MEDS: JEVITY 1.2 CAL 1,000 ML BOTTLE GT PRN (03:30)
[2019-11-15] MEDS: CEFEPIME 2 GM in IV D5W 100 ML IV SCH ×2 (05:17→18:01)
[2019-11-15] MEDS: METOCLOPRAMIDE HCL 10 MG/2 ML VIAL IV SCH ×4 (05:18→23:34)
--- NOTE | 2019-11-15 05:35 | NUR ---
rn notes: fingerstick blood glucose check performed, result obtained is 106.
[2019-11-15 06:16] LABS: BASOPHILS # (AUTO) 0.1 /CMM (0.0-0.2); BASOPHILS % (AUTO) 0.7 % (0.0-2.0); EOSINOPHILS % (AUTO) 1.3 % (0.0-6.0); HEMATOCRIT 29 % (39-51); HEMOGLOBIN 9.5 g/dL (13.5-17.5); LYMPHOCYTES # (AUTO) 0.9 /CMM (0.8-4.8); MEAN CORPUSCULAR HGB CONC 33 g/dl (31.0-36.0); MEAN CORPUSCULAR VOLUME 87 fL (80-96); MONOCYTES # (AUTO) 0.6 /CMM (0.1-1.30); MONOCYTES % (AUTO) 6.6 % (2.0-12.0); NEUTROPHILS % (AUTO) 82.4 % (43.0-81.0); PLATELET COUNT (AUTO) 206 /CMM (150-450); RED BLOOD CELL COUNT(AUTO) 3.32 MIL/uL (4.5-6.0); WHITE BLOOD COUNT (AUTO) 9.7 K/uL (4.3-11.0)
[2019-11-15 06:18] VITALS: BP 115/60
[2019-11-15 06:19] LABS: CALCIUM, SERUM 8.2 mg/dL (8.5-10.1); CARBON DIOXIDE 27 mmol/L (21-32); CHLORIDE 108 mmol/L (98-107); GLUCOSE 138 mg/dL (74-106); PHOSPHORUS 2.9 mg/dL (2.5-4.9); POTASSIUM 4.5 mmol/L (3.5-5.1); SODIUM SERUM 142 mmol/L (136-145); UREA NITROGEN, BLOOD 55 mg/dL (7-18)
--- NOTE | 2019-11-15 06:49 | NUR ---
end of shift report: received report from tom vela at 1920 last night. pt a/o x1, confused but able to respond to name. on 10L simple mask. iv access patent and flushing well, connected with ns at tko. pt remains with bilateral soft wrist restraint, pt able to move and wiggle arms and hands, with good capillary refill noted, radial pulses palpable and intact, no s/s of impediment in circulation noted. gtube remains clamped, gtube still leaking. kept hob 30 degree and maintain strict aspiration precaution. pt's dentures were in a denture container at bedside table. remains afebrile. am care and wound care provided. safety precautions for fall remains engaged, call light in reach, will endorse to day rn for continuity of care.
[2019-11-15 08:00] VITALS: BP 98/54
--- NOTE | 2019-11-15 08:00 | NUR ---
RN NOTES RECEIVED PATIENT IN THE BED A/O X1, CONFUSED. PATIENT ON MASK 10L, NO ACUTE RESPIRATORY DISTRESS, V/S STABLE, PATIENT NPO, BECAUSE GT LEAKAGE. PATIENT TOTAL CARE, ON SOFT RESTRAIN ON UPPER ARMS. CHECKED CIRCULATION Q 2 HR, ASSIST PATIENT TURN AND REPOSTION Q 2 HR. IV ACCESS ON RIGHT FA INTACT. PATIENT HAS SACRAL REDNESS APPLIED Z-GUARD, AND MEPILEX. PLAN IS GT INSERTION VIA GI MD. CONTINUED MONITORING.
[2019-11-15] MEDS: ACETYLCYSTEINE 10% SOLN 400 MG/4 ML VIAL NEB SCH ×2 (08:33→15:39)
[2019-11-15] MEDS: FERROUS SULFATE (325 MG) 325 MG/TAB TABLET GT SCH (09:00)
[2019-11-15] MEDS: ACETAMINOPHEN 650 MG/20.3 ML UDC GT SCH (09:00)
[2019-11-15] MEDS: PROSOURCE / PROSTAT (PYXIS) 30 ML UDC GT SCH ×2 (09:00→17:00)
[2019-11-15] MEDS ORDERED: VANCOMYCIN 0.75 GM in IV D5W 250 ML IV SCH ×3 (09:00→21:00)
[2019-11-15] MEDS: MULTIVIT W/MINERALS 1 TAB TABLET GT SCH (09:00)
[2019-11-15] MEDS: THIAMINE HCL 100 MG TABLET GT SCH (09:00)
[2019-11-15] MEDS: SENNOSIDES 8.6 MG TABLET GT SCH ×2 (09:00→21:00)
[2019-11-15] MEDS: PANTOPRAZOLE 40 MG VIAL IV SCH ×2 (10:19→18:01)
--- NOTE | 2019-11-15 15:51 | NUR ---
EN NOTES IV ACCESS INFILTRATED, AND GET TO ORDER VIA HOSPITALIST MIDLINE INSERTION. ORDER TAKEN AND CARRIED OUT.
[2019-11-15 16:00] VITALS: BP 101/59
--- NOTE | 2019-11-15 18:00 | NUR ---
RN NOTES PATIENT STABLE, HELD PO MEDICATION, INFUSING MAXIPIME 100ML/HR ON RIGHT MIDLINE INTACT, ADMINISTERED SCHEDULED MEDICATION. PATIENT HAS GI CONSULTATION FOR NEW GT PLACEMENT. KEEP HOB ELEVATED 40 DEGREE ALL THE TIME. ASSIST TURN AND REPOSTION Q 2 HR. ENDOSED ONCOMING NURSE FOLLOW PLAN OF CARE.
--- NOTE | 2019-11-15 19:15 | NUR ---
RN MS OPENING NOTES RECEIVED PATIENT IN BED ALERT AND ORIENTED X1, RESPIRATIONS EVEN AND UNLABORED WITH EQUAL RISE AND FALL OF CHEST ON 10L VIA MASK, NO S/S OF PAIN OR DISCOMFORT AT THIS TIME, HOB ELEVATED FOR ASPIRATION PRECAUTIONS, RIGHT AC MIDLINE SITE INTACT AND PATENT, NO INFILTRATION NOTED. ORIENTED TO STAFF AND CALL LIGHT AND KEPT WITHIN REACH, FALL PRECAUTIONS RENDERED, BED ALARM IN PLACE. ALL NEEDS ATTENDED AT THIS TIME, WILL CONTINUE TO MONITOR. BILATERAL WRIST RESTRAINTS IN PLACE, SKIN WNL PULSES PALPABLE, SKIN CIRCULATION CHECK DONE WNL. WILL CONTINUE TO MONITOR.
[2019-11-15 20:00] VITALS: BP 121/74
[2019-11-15 20:22] VITALS: BP 121/74
[2019-11-15] MEDS: OLANZAPINE 5 MG TABLET GT SCH (21:19)
--- NOTE | 2019-11-15 22:53 | NUR ---
RN MS NOTES SPOKE TO REGARDING RENEWAL OF BILATERAL WRIST RESTRAINT, PT STILL AT RISK FOR INJURY PULLING ON MEDICAL TUBING. OKAY TO RENEW ORDER FOR WRIST RESTRAINTS. SKIN CHECKS DONE WNL.
[2019-11-16] MEDS: ACETYLCYSTEINE 10% SOLN 400 MG/4 ML VIAL NEB SCH ×3 (02:18→14:58)
[2019-11-16] MEDS: IPRATROPIUM NEB FS 0.5 MG/2.5 ML AMPUL.NEB NEB SCH ×4 (02:18→20:16)
[2019-11-16] MEDS: ALBUTEROL FS 2.5 MG/0.5 ML VIAL.NEB NEB SCH ×4 (02:18→20:17)
[2019-11-16] MEDS: METOCLOPRAMIDE HCL 10 MG/2 ML VIAL IV SCH ×4 (05:03→23:44)
[2019-11-16] MEDS: CEFEPIME 2 GM in IV D5W 100 ML IV SCH ×2 (05:03→17:54)
--- NOTE | 2019-11-16 06:31 | NUR ---
RN MS CLOSING NOTES PATIENT IN BED ALERT AND ORIENTED X1, RESPIRATIONS EVEN AND UNLABORED WITH EQUAL RISE AND FALL OF CHEST ON 10L VIA MASK,02 SAT WNL , NO S/S OF PAIN OR DISCOMFORT AT THIS TIME, HOB ELEVATED FOR ASPIRATION PRECAUTIONS, RIGHT AC MIDLINE SITE INTACT AND PATENT, NO INFILTRATION NOTED. ,CALL LIGHT,KEPT WITHIN REACH, FALL PRECAUTIONS RENDERED, BED ALARM IN PLACE. ALL NEEDS ATTENDED AT THIS TIME, WILL CONTINUE TO MONITOR. BILATERAL WRIST RESTRAINTS IN PLACE, SKIN WNL PULSES PALPABLE, SKIN CIRCULATION CHECK DONE WNL. REPOSITIONED Q 2HOURS. WOUND CARE PROVIDED ORDERED, HEELS OFFLOADED, WILL CONTINUE TO MONITOR AND ENDORSE TO NEXT SHIFT, REMAINS COMFORTABLE.
[2019-11-16 06:33] LABS: ALANINE AMINOTRANSFERASE 26 U/L (12-78); ALBUMIN 1.6 g/dL (3.4-5.0); ALKALINE PHOSPHATASE 57 U/L (46-116); ASPARTATE AMINOTRANSFERASE 31 U/L (15-37); BILIRUBIN,TOTAL 0.5 mg/dL (0.2-1.0); CALCIUM, SERUM 8.7 mg/dL (8.5-10.1); CARBON DIOXIDE 25 mmol/L (21-32); CHLORIDE 105 mmol/L (98-107); CREATININE 2.4 mg/dL (0.6-1.3); GLUCOSE 121 mg/dL (74-106); MAGNESIUM 2.1 mg/dL (1.8-2.4); PHOSPHORUS 3.8 mg/dL (2.5-4.9); POTASSIUM 3.9 mmol/L (3.5-5.1); SODIUM SERUM 141 mmol/L (136-145); TOTAL PROTEIN, SERUM 7.2 g/dL (6.4-8.2); UREA NITROGEN, BLOOD 58 mg/dL (7-18)
[2019-11-16 06:38] LABS: BASOPHILS # (AUTO) 0.1 /CMM (0.0-0.2); BASOPHILS % (AUTO) 0.6 % (0.0-2.0); EOSINOPHILS % (AUTO) 1.7 % (0.0-6.0); HEMATOCRIT 29 % (39-51); HEMOGLOBIN 9.3 g/dL (13.5-17.5); LYMPHOCYTES # (AUTO) 1.2 /CMM (0.8-4.8); LYMPHOCYTES % (AUTO) 13.9 % (20.0-44.0); MEAN CORPUSCULAR HGB CONC 32 g/dl (31.0-36.0); MEAN CORPUSCULAR VOLUME 87 fL (80-96); MONOCYTES # (AUTO) 0.7 /CMM (0.1-1.30); MONOCYTES % (AUTO) 7.9 % (2.0-12.0); NEUTROPHILS # (AUTO) 6.7 /CMM (1.8-8.9); NEUTROPHILS % (AUTO) 75.9 % (43.0-81.0); PLATELET COUNT (AUTO) 241 /CMM (150-450); WHITE BLOOD COUNT (AUTO) 8.9 K/uL (4.3-11.0)
--- NOTE | 2019-11-16 07:20 | NUR ---
MS RN NOTES RECEIVED PT IN BED AWAKE, A/OX1. PT ON SUPPLEMENTARY OXYGEN AT 10LPM VIA SIMPLE MASK, WITH NO ACUTE RESPIRATORY DISTRESS NOTED. PT CURRENTLY ON NPO, PER NIGHT NURSE PLAN IS FOR GI CONSULT TO REPLACE JTUBE, ABDOMINAL BINDER IN PLACE. PT NOTED BOTH SOFT WRIST RESTRAINTS WELL. PT KEPT COMFOTABLE IN BED, HOB ELEVATED. CALL LIGHT KEPT WITHIN REACH. PT'S BED IN LOWEST, LOCKED POSITION WITH SRX3. WILL CONTINUE TO MONITOR.
[2019-11-16 08:00] VITALS: BP 113/64
[2019-11-16] MEDS: THIAMINE HCL 100 MG TABLET GT SCH (09:00)
[2019-11-16] MEDS: MULTIVIT W/MINERALS 1 TAB TABLET GT SCH (09:00)
[2019-11-16] MEDS: SENNOSIDES 8.6 MG TABLET GT SCH ×2 (09:00→21:00)
[2019-11-16] MEDS: FERROUS SULFATE (325 MG) 325 MG/TAB TABLET GT SCH (09:00)
[2019-11-16] MEDS: ACETAMINOPHEN 650 MG/20.3 ML UDC GT SCH (09:00)
[2019-11-16] MEDS: PROSOURCE / PROSTAT (PYXIS) 30 ML UDC GT SCH ×2 (09:00→17:00)
--- NOTE | 2019-11-16 09:17 | NUR ---
MS RN NOTES GAVE REPORT TO LUCIO/BALJEET FOR GALDINO.
[2019-11-16] MEDS: PANTOPRAZOLE 40 MG VIAL IV SCH ×2 (09:20→17:52)
--- NOTE | 2019-11-16 11:05 | NUR ---
RN NOTE Orders to titrate O2 per MD. O2 titrated down to 6L simple mask, patient is saturating 95% BP 102/63 HR 89. Patient remains stable will continue to monitor.
[2019-11-16 11:07] VITALS: BP 102/63
[2019-11-16 16:00] VITALS: BP 124/73
--- NOTE | 2019-11-16 19:24 | NUR ---
RN CLOSING NOTE Patient is resting in bed, A/O x0, non-verbal, opens eyes to name. Breathing is even and unlabored, saturating 95% on 6L NC. Vital signs remain stable. AJIT midline is clean and intact running D5NS @ 60ml/hour. g-tube clamped, abdominal binder in place. Bilateral soft restraints in place, circulation checked, two-finger space, patient turned and reposition [id number]. All patient needs met, all due medications given, patient kept clean and dry throughout shift. Bed is in lowest position, side rails x3 in upright position, fall safety and aspiration precautions enforced. Will endorse to power and recovery shift engineer.
[2019-11-16 20:00] VITALS: BP 136/68
[2019-11-16 20:31] VITALS: BP 136/68
[2019-11-16] MEDS: OLANZAPINE 5 MG TABLET GT SCH (21:16)
[2019-11-17] MEDS: ACETYLCYSTEINE 10% SOLN 400 MG/4 ML VIAL NEB SCH ×3 (00:01→15:12)
[2019-11-17] MEDS: IPRATROPIUM NEB FS 0.5 MG/2.5 ML AMPUL.NEB NEB SCH ×4 (02:02→19:56)
[2019-11-17] MEDS: ALBUTEROL FS 2.5 MG/0.5 ML VIAL.NEB NEB SCH ×4 (02:02→19:56)
[2019-11-17] MEDS: METOCLOPRAMIDE HCL 10 MG/2 ML VIAL IV SCH ×3 (05:22→16:56)
[2019-11-17] MEDS ORDERED: CEFEPIME 1 GM VIAL ONE (05:36)
[2019-11-17] MEDS: CEFEPIME 2 GM in IV D5W 100 ML IV SCH ×2 (05:37→17:06)
--- NOTE | 2019-11-17 06:37 | NUR ---
RN CLOSING NOTES Patient asleep, easily awaken. On O2 mask @ 6LPM, titrated to keep O2 > 92% as ordered. Turned and repositioned q2h per protocol. All nursing needs attended. Due meds given as ordered. Awaiting for G/J-tube placement. No new unusualities noted. Kept on bed clean, dry and comfortable. On fall and aspiration precautions. Endorsed.
[2019-11-17 07:35] LABS: BASOPHILS # (AUTO) 0.1 /CMM (0.0-0.2); BASOPHILS % (AUTO) 1.1 % (0.0-2.0); EOSINOPHILS % (AUTO) 2.9 % (0.0-6.0); HEMATOCRIT 29 % (39-51); HEMOGLOBIN 9.3 g/dL (13.5-17.5); LYMPHOCYTES # (AUTO) 0.8 /CMM (0.8-4.8); LYMPHOCYTES % (AUTO) 10.5 % (20.0-44.0); MEAN CORPUSCULAR HGB CONC 32 g/dl (31.0-36.0); MEAN CORPUSCULAR VOLUME 87 fL (80-96); MONOCYTES # (AUTO) 0.6 /CMM (0.1-1.30); MONOCYTES % (AUTO) 7.9 % (2.0-12.0); NEUTROPHILS % (AUTO) 77.6 % (43.0-81.0); PLATELET COUNT (AUTO) 217 /CMM (150-450); RED BLOOD CELL COUNT(AUTO) 3.31 MIL/uL (4.5-6.0); WHITE BLOOD COUNT (AUTO) 7.8 K/uL (4.3-11.0)
[2019-11-17 07:58] LABS: ALANINE AMINOTRANSFERASE 26 U/L (12-78); ALBUMIN 1.5 g/dL (3.4-5.0); ALKALINE PHOSPHATASE 58 U/L (46-116); ASPARTATE AMINOTRANSFERASE 30 U/L (15-37); BILIRUBIN,TOTAL 0.5 mg/dL (0.2-1.0); CALCIUM, SERUM 8.8 mg/dL (8.5-10.1); CARBON DIOXIDE 23 mmol/L (21-32); CHLORIDE 110 mmol/L (98-107); CREATININE 2.5 mg/dL (0.6-1.3); GLUCOSE 125 mg/dL (74-106); MAGNESIUM 2.1 mg/dL (1.8-2.4); PHOSPHORUS 3.5 mg/dL (2.5-4.9); POTASSIUM 3.5 mmol/L (3.5-5.1); SODIUM SERUM 145 mmol/L (136-145); TOTAL PROTEIN, SERUM 7.4 g/dL (6.4-8.2); UREA NITROGEN, BLOOD 61 mg/dL (7-18)
[2019-11-17 08:00] VITALS: BP 121/59
--- NOTE | 2019-11-17 08:00 | NUR ---
RN OPENING NOTE Patient is resting in bed, A/O x0, non-verbal, opens eyes to name. Breathing is even and unlabored, saturating 95% on 6L NC. AJIT midline is clean and intact running D5NS @ 60ml/hour. g-tube clamped, abdominal binder in place. Bilateral soft restraints in place, circulation checked, two-finger space, patient turned and repositioned. Bed is in lowest position, side rails x3 in upright position, fall safety and aspiration precautions enforced. Will continue with plan of care.
[2019-11-17] MEDS: THIAMINE HCL 100 MG TABLET GT SCH (09:00)
[2019-11-17] MEDS: PROSOURCE / PROSTAT (PYXIS) 30 ML UDC GT SCH ×2 (09:00→16:53)
[2019-11-17] MEDS: FERROUS SULFATE (325 MG) 325 MG/TAB TABLET GT SCH (09:00)
[2019-11-17] MEDS: MULTIVIT W/MINERALS 1 TAB TABLET GT SCH (09:00)
[2019-11-17] MEDS: ACETAMINOPHEN 650 MG/20.3 ML UDC GT SCH (09:00)
[2019-11-17] MEDS: SENNOSIDES 8.6 MG TABLET GT SCH ×2 (09:00→21:47)
--- NOTE | 2019-11-17 09:00 | NUR ---
RN NOTE From glass frame fitter, she stated that Kuldeep DELONG paged Dr. Hale to assess the patient for possible g-tube replacement.
[2019-11-17] MEDS: PANTOPRAZOLE 40 MG VIAL IV SCH ×2 (09:56→16:53)
[2019-11-17] MEDS: IV D5/ 0.9% NACL 1,000 ML IV PRN (12:15)
[2019-11-17 16:00] VITALS: BP_SYST 116; BP_SYST 125; BP_DIAS 57; BP_DIAS 69
--- NOTE | 2019-11-17 18:45 | NUR ---
RN NOTE Spoke with Dr. Boone and he stated he will see the patient tomorrow to change g-tube. Requests for 14 latvian and 16 latvian to be left at the bedside. Tried calling central supply but no answer. Will endorse to material handler 2nd shift.
--- NOTE | 2019-11-17 19:20 | NUR ---
RN NOTE Patient had episode of desaturation 80% 6L mask. Patient suctioned and placed on non-rebreather 15L saturating 95%. Will continue to monitor. Addendum: 11/17/19 at 1928 by KATHERINE RIGGS RN Dr. Monroe made aware.
--- NOTE | 2019-11-17 19:24 | NUR ---
RN CLOSING NOTE Patient is resting in bed, A/O x0, non-verbal, opens eyes to name. Breathing is even and unlabored, saturating 95% on 15L non-rebreather. AJIT midline is clean and intact running D5NS @ 60ml/hour. g-tube clamped, abdominal binder in place. Bilateral soft restraints in place, circulation checked, two-finger space, patient turned and repositioned every 2 hours. All patient needs met, all due medications given, patient kept clean and dry throughout shift. Bed is in lowest position, side rails x3 in upright position, fall safety and aspiration precautions enforced. Will endorse to manager shift.
[2019-11-17 20:00] VITALS: BP 121/66
[2019-11-17] MEDS: CLOTRIMAZOLE 1% 15 GM TUBE TP SCH (21:47)
[2019-11-17] MEDS: OLANZAPINE 5 MG TABLET GT SCH (21:47)
[2019-11-18] MEDS: ALBUTEROL FS 2.5 MG/0.5 ML VIAL.NEB NEB SCH ×5 (00:04→19:31)
[2019-11-18] MEDS: IPRATROPIUM NEB FS 0.5 MG/2.5 ML AMPUL.NEB NEB SCH ×4 (00:04→19:30)
[2019-11-18] MEDS: ACETYLCYSTEINE 10% SOLN 400 MG/4 ML VIAL NEB SCH ×4 (00:04→23:07)
[2019-11-18] MEDS: METOCLOPRAMIDE HCL 10 MG/2 ML VIAL IV SCH ×5 (00:41→23:44)
[2019-11-18] MEDS: CEFEPIME 2 GM in IV D5W 100 ML IV SCH ×2 (05:28→17:31)
[2019-11-18] MEDS: IV D5/ 0.9% NACL 1,000 ML IV PRN (05:42)
--- NOTE | 2019-11-18 06:49 | NUR ---
MS RN NOTES PT AWAKE. NON VERBAL. OPENS EYES TO NAME. NOT IN ANY DISTRESS. NO SOB NOTED. NO S/SX OF ANY PAIN OR DISCOMFORT AT THIS TIME. WITH 02 @ 15 LPM VIA NRB SATURATING WELL @ 97% WITH IVF INFUSING WELL. AM CARE DONE. MONITORED ACCORDINGLY. CALL LIGHT WITHIN REACH. BED IN LOWEST POSITION. SR UP X3 WITH BED ALARM ON FOR SAFETY. WILL ENDORSE TO NEXT SHIFT.
[2019-11-18 07:07] LABS: BASOPHILS # (AUTO) 0.1 /CMM (0.0-0.2); BASOPHILS % (AUTO) 1.1 % (0.0-2.0); EOSINOPHILS % (AUTO) 2.2 % (0.0-6.0); HEMATOCRIT 29 % (39-51); HEMOGLOBIN 9.2 g/dL (13.5-17.5); LYMPHOCYTES # (AUTO) 0.7 /CMM (0.8-4.8); LYMPHOCYTES % (AUTO) 8.7 % (20.0-44.0); MEAN CORPUSCULAR HGB CONC 32 g/dl (31.0-36.0); MEAN CORPUSCULAR VOLUME 88 fL (80-96); MONOCYTES # (AUTO) 0.6 /CMM (0.1-1.30); MONOCYTES % (AUTO) 7.3 % (2.0-12.0); NEUTROPHILS # (AUTO) 6.8 /CMM (1.8-8.9); NEUTROPHILS % (AUTO) 80.7 % (43.0-81.0); PLATELET COUNT (AUTO) 208 /CMM (150-450); RED BLOOD CELL COUNT(AUTO) 3.28 MIL/uL (4.5-6.0); WHITE BLOOD COUNT (AUTO) 8.4 K/uL (4.3-11.0)
[2019-11-18 07:35] LABS: ALANINE AMINOTRANSFERASE 24 U/L (12-78); ALBUMIN 1.5 g/dL (3.4-5.0); ALKALINE PHOSPHATASE 56 U/L (46-116); ASPARTATE AMINOTRANSFERASE 27 U/L (15-37); BILIRUBIN,TOTAL 0.4 mg/dL (0.2-1.0); CALCIUM, SERUM 8.7 mg/dL (8.5-10.1); CARBON DIOXIDE 24 mmol/L (21-32); CHLORIDE 113 mmol/L (98-107); CREATININE 2.9 mg/dL (0.6-1.3); GLUCOSE 158 mg/dL (74-106); MAGNESIUM 2.1 mg/dL (1.8-2.4); PHOSPHORUS 3.8 mg/dL (2.5-4.9); POTASSIUM 3.6 mmol/L (3.5-5.1); SODIUM SERUM 150 mmol/L (136-145); TOTAL PROTEIN, SERUM 7.4 g/dL (6.4-8.2); UREA NITROGEN, BLOOD 61 mg/dL (7-18)
[2019-11-18 08:00] VITALS: BP 112/79
--- NOTE | 2019-11-18 08:03 | NUR ---
rn notes patient received on 8L mask no sob noted, patient shows no s/s of pain at this time. a/o x1 and does not respond. Bed at the lowest setting, call light within reach, side rails up x2. D5 NS @ 60 ml per hour and AJIT ML present.
[2019-11-18] MEDS: FERROUS SULFATE (325 MG) 325 MG/TAB TABLET GT SCH (08:54)
[2019-11-18] MEDS: PROSOURCE / PROSTAT (PYXIS) 30 ML UDC GT SCH ×2 (08:54→17:00)
[2019-11-18] MEDS: CLOTRIMAZOLE 1% 15 GM TUBE TP SCH ×2 (08:55→17:23)
[2019-11-18] MEDS: SENNOSIDES 8.6 MG TABLET GT SCH ×2 (08:55→20:00)
[2019-11-18] MEDS: MULTIVIT W/MINERALS 1 TAB TABLET GT SCH (08:55)
[2019-11-18] MEDS: THIAMINE HCL 100 MG TABLET GT SCH (08:55)
[2019-11-18] MEDS: ACETAMINOPHEN 650 MG/20.3 ML UDC GT SCH (08:55)
[2019-11-18] MEDS: PANTOPRAZOLE 40 MG VIAL IV SCH ×2 (08:56→17:31)
--- NOTE | 2019-11-18 16:24 | NUR ---
rn notes patients son refused the bilateral restraints to be placed on the patient. Explained to him the benefits of the restraint because the patient were pulling mask, and g tube last night. He still wants the restraints off x3. charge nurse aware.
[2019-11-18 18:29] LABS: CREATININE, URINE 51.1 MG/DL (30.0-125.0); URINE TOTAL PROTEIN 201.1 mg/dL (0-11.9)
[2019-11-18 18:48] LABS: APPEARANCE,URINE CLOUDY (CLEAR); BILIRUBIN,URINE NEGATIVE (NEGATIVE); BLOOD, URINE LARGE Ery/uL (NEGATIVE); COLOR,URINE YELLOW (YELLOW); KETONES,URINE NEGATIVE (NEGATIVE); LEUKOCYTE ESTERASE ,URINE NEGATIVE (NEGATIVE); NITRITE, URINE NEGATIVE (NEGATIVE); PROTEIN,URINE 100 mg/dl (NEGATIVE); UGLUCOSE NEGATIVE (NEGATIVE); UROBILINOGEN,URINE 0.2 EU/dL (0.2)
--- NOTE | 2019-11-18 18:54 | NUR ---
rn notes patient remains on a face mask with 8 L o2 flow. a/o x0 at this time. Bed ridden, as noted earlier, patients son does not want patient on a bilateral restraints at this time. NPO HOLD GT Feeding at this time, pending gt tube change today bedside to be done by Dr. Black. He did mention on the phone that he will be doing it today and to use a armenian 14 size tube. bed at the lowest setting, call light within reach, side rails up x2.
[2019-11-18 19:07] LABS: BACTERIA,URINE None seen /HPF (None Seen); FINE GRANULAR CASTS,URINE Moderate /LPF (None Seen); WBC,URINE 0-2 /HPF (0-3)
[2019-11-18 19:08] LABS: SQUAMOUS EPITHELIAL CELL,UR Few /HPF (None Seen)
[2019-11-18 20:00] VITALS: BP 130/101
[2019-11-18 20:47] LABS: EOSINOPHIL,URINE None Seen
[2019-11-18] MEDS ORDERED: VANCOMYCIN 0.75 GM in IV D5W 250 ML IV SCH (21:00)
[2019-11-18] MEDS ORDERED: ACETAMINOPHEN 650 MG/SUPP.RECT RC PRN (22:00)
[2019-11-18] MEDS: OLANZAPINE 5 MG TABLET GT SCH (22:00)
[2019-11-19] MEDS: IV D5/ 0.9% NACL 1,000 ML IV PRN (01:41)
[2019-11-19] MEDS: ALBUTEROL FS 2.5 MG/0.5 ML VIAL.NEB NEB SCH ×4 (01:49→19:42)
[2019-11-19] MEDS: IPRATROPIUM NEB FS 0.5 MG/2.5 ML AMPUL.NEB NEB SCH ×4 (01:49→19:42)
[2019-11-19] MEDS: METOCLOPRAMIDE HCL 10 MG/2 ML VIAL IV SCH ×4 (05:33→23:30)
[2019-11-19] MEDS: CEFEPIME 2 GM in IV D5W 100 ML IV SCH ×2 (06:02→17:39)
--- NOTE | 2019-11-19 06:26 | NUR ---
MS RN CLOSING NOTE: PT AWAKE. NON VERBAL. NOT IN ANY DISTRESS OR SOB NOTED. NO S/S OF ANY PAIN OR DISCOMFORT AT THIS TIME. ALL MEDS GIVEN ORDERED AND TOLERATED WELL. CALL LIGHT WITHIN REACH. BED IN LOW POSITION. SIDE RAILS UP X3. WILL CONTINUE TO MONITOR AND WILL ENDORSE TO INCOMING DAY SHIFT NURSE.
[2019-11-19 07:07] LABS: COMPLEMENT C4, SERUM 28 mg/dL (14-44)
--- NOTE | 2019-11-19 07:31 | NUR ---
rn notes patient received on mask 8L per minute. A/O x1 at this time. NPO and hold GT feeding at this time, the MD that was suppose to come and change it did not come yesterday. MD verbally stated that he was going to change it yesterday on the phone. D5NS @ 60 ml per hour, AJIT midline present. bed at the lowest setting, call light within reach, side rails up x2.
[2019-11-19] MEDS: FERROUS SULFATE (325 MG) 325 MG/TAB TABLET GT SCH (07:35)
[2019-11-19] MEDS: ACETYLCYSTEINE 10% SOLN 400 MG/4 ML VIAL NEB SCH ×3 (07:35→23:43)
[2019-11-19] MEDS: THIAMINE HCL 100 MG TABLET GT SCH (07:35)
[2019-11-19] MEDS: MULTIVIT W/MINERALS 1 TAB TABLET GT SCH (07:35)
[2019-11-19] MEDS: SENNOSIDES 8.6 MG TABLET GT SCH ×2 (07:35→21:00)
[2019-11-19] MEDS: PROSOURCE / PROSTAT (PYXIS) 30 ML UDC GT SCH ×2 (07:35→16:11)
[2019-11-19] MEDS: ACETAMINOPHEN 650 MG/20.3 ML UDC GT SCH (07:37)
[2019-11-19 07:52] LABS: BASOPHILS # (AUTO) 0.1 /CMM (0.0-0.2); BASOPHILS % (AUTO) 0.5 % (0.0-2.0); EOSINOPHILS % (AUTO) 0.4 % (0.0-6.0); HEMATOCRIT 31 % (39-51); HEMOGLOBIN 9.1 g/dL (13.5-17.5); LYMPHOCYTES % (AUTO) 7.7 % (20.0-44.0); MEAN CORPUSCULAR HGB CONC 30 g/dl (31.0-36.0); MEAN CORPUSCULAR VOLUME 94 fL (80-96); MONOCYTES % (AUTO) 7.6 % (2.0-12.0); NEUTROPHILS # (AUTO) 10.5 /CMM (1.8-8.9); NEUTROPHILS % (AUTO) 83.8 % (43.0-81.0); PLATELET COUNT (AUTO) 190 /CMM (150-450); RED BLOOD CELL COUNT(AUTO) 3.25 MIL/uL (4.5-6.0); WHITE BLOOD COUNT (AUTO) 12.5 K/uL (4.3-11.0)
[2019-11-19 08:00] VITALS: BP 109/72
[2019-11-19 08:08] LABS: *ANA ANTI-CENTROMERE B AB <0.2 AI (0.0-0.9); *ANA ANTI-DNA(DS) AB, QN 2 IU/mL (0-9); *ANA ANTI-JO-1 <0.2 AI (0.0-0.9); *ANA ANTICHROMATIN ANTIBODY <0.2 AI (0.0-0.9); *ANA RNP ANTIBODIES <0.2 AI (0.0-0.9); *ANA SJOGREN'S ANTI-SS-A 5.8 AI (0.0-0.9); *ANA SJOGREN'S ANTI-SS-B <0.2 AI (0.0-0.9); *ANAANTI-SCLERODERMA-70 AB <0.2 AI (0.0-0.9); *ANASMITH AB <0.2 AI (0.0-0.9)
[2019-11-19] MEDS: PANTOPRAZOLE 40 MG VIAL IV SCH ×2 (08:26→16:37)
[2019-11-19] MEDS: CLOTRIMAZOLE 1% 15 GM TUBE TP SCH ×2 (08:26→16:37)
[2019-11-19 08:58] LABS: ALANINE AMINOTRANSFERASE 23 U/L (12-78); ALKALINE PHOSPHATASE 53 U/L (46-116); ASPARTATE AMINOTRANSFERASE 35 U/L (15-37); BILIRUBIN,TOTAL 0.5 mg/dL (0.2-1.0); CALCIUM, SERUM 8.4 mg/dL (8.5-10.1); CARBON DIOXIDE 20 mmol/L (21-32); CHLORIDE 115 mmol/L (98-107); CREATININE 3.2 mg/dL (0.6-1.3); GLUCOSE 137 mg/dL (74-106); MAGNESIUM 1.9 mg/dL (1.8-2.4); PHOSPHORUS 3.5 mg/dL (2.5-4.9); POTASSIUM 3.5 mmol/L (3.5-5.1); SODIUM SERUM 149 mmol/L (136-145); TOTAL PROTEIN, SERUM 7.1 g/dL (6.4-8.2); UREA NITROGEN, BLOOD 66 mg/dL (7-18)
[2019-11-19 09:02] LABS: CREATINE KINASE, TOTAL 378 U/L (39-308)
[2019-11-19 09:22] LABS: ALBUMIN 1.4 g/dL (3.4-5.0)
[2019-11-19] MEDS ORDERED: IV D5/0.45 NACL 1,000 ML IV PRN (11:27)
--- NOTE | 2019-11-19 12:26 | NUR ---
rn notes Dr. Black replaced the G tube at this time, per MD instructions, wait for the hole to close and call him when it is a lot smaller. Also stated, that it will be normal for fluid to be leaking out at this time.
--- NOTE | 2019-11-19 18:57 | NUR ---
rn notes patient remains on 6L mask, no sob noted, patient shows no s/s of pain at this time. a/o x1. NPO hold gt feeding until the new 14 romanian g tube is closed, per Dr. Black. D5 NS @ 60 ml per hour AJIT Midline present. bed at the lowest setting, call light within reach, side rails up x2.
--- NOTE | 2019-11-19 19:30 | NUR ---
MS RN OPENING NOTES RECEIVED PATIENT RESTING IN BED COMFORTABLY; A/OX1, RESPONDS TO NAME; BREATHING EVEN AND UNLABORED; PATIENT ON SIMPLE MASK 6L, TOLERATING WELL; BREATHING EVEN AND UNLABORED; NO SOB NOTED; AJIT MIDLINE INTACT, INFUSING D5NS @ 60ML/HR; TOLERATING IVF WELL; PER AM NURSE, HOLD GTUBE FEEDING FOR NOW PER DR. HANSON; SAFETY PRECAUTIONS IMPLEMENTED; BED LOCKED IN LOW POSITION; SIDE RAILS X2; WILL CONT TO MONITOR
[2019-11-19 20:00] VITALS: BP 113/58
[2019-11-19 20:28] VITALS: BP 113/58
--- NOTE | 2019-11-19 20:32 | NUR ---
MS RN NOTES PATIENT SPO2: LOW 80S - 90S, RT REPORTED PER AM SHIFT, LOW 90S IS PATIENT USUAL; PATIENT DNR/DNI, PER RT PLACE PATIENT ON NON-REBREATHER, WILL CONT TO MONITOR; CHARGE NURSE AWARE;
--- NOTE | 2019-11-19 21:10 | NUR ---
MS RN NOTES PATIENT SPO2 FLUCTUATING FROM 90S - 85S; CHARGE NURSE AWARE; WILL CONT TO MONITOR
--- NOTE | 2019-11-19 21:36 | NUR ---
MS RN NOTES PAGED EPIC TO UPDATE LABORER WRECKING AND SALVAGING MD REGARDING PATIENT STATUS; WILL CONT TO MONITOR
[2019-11-19] MEDS: OLANZAPINE 5 MG TABLET GT SCH (21:38)
--- NOTE | 2019-11-19 21:45 | NUR ---
MS RN NOTES SPOKE WITH DR. LOPEZ REGARDING PATIENT; MD NOTIFIED AND AWARE; MD VERBALIZED WE ARE UNABLE TO USE EasyaulaUBE AT THIS TIME UNTIL ASSESSED IN AM; CONTACTED SON, GUMARO; WAS ABLE TO REACH SON TO UPDATE HIM ABOUT PATIENT CONDITION; GUMARO CONFIRMED CODE STATUS DNR; GUMARO ALSO VERBALIZED HE DOES NOT WANT PATIENT TO BE RESTRAINED; SON WOULD LIKE TO COME VISIT IN AM WITH BROTHER; WILL CONFIRM IF VISITATION IS POSSIBLE; WILL CONT TO MONITOR
--- NOTE | 2019-11-19 22:25 | NUR ---
MS RN NOTES PATIENT SPO2 @ 88% ON 15L NON-REBREATHER MASK; PER RT, ALTERNATE FROM NON-REBREATHER TO SIMPLE ONCE 90% OXYGENATION; WILL CONT TO MONITOR
[2019-11-20] MEDS: IPRATROPIUM NEB FS 0.5 MG/2.5 ML AMPUL.NEB NEB SCH ×4 (00:53→19:59)
[2019-11-20] MEDS: ALBUTEROL FS 2.5 MG/0.5 ML VIAL.NEB NEB SCH ×4 (00:53→19:59)
--- NOTE | 2019-11-20 00:57 | NUR ---
MS RN NOTES SPO2 @ 89% ON 15LPM VIA NON-REBREATHER, RT AT BEDSIDE
--- NOTE | 2019-11-20 01:54 | NUR ---
MS RN NOTES PATIENT CURRENTLY ON 15LPM VIA NON-REBREATHER MASK, PATIENT SPO2 @ 93% AT THIS TIME; WILL CONT TO MONITOR
[2019-11-20 05:07] LABS: COMPLEMENT C3, SERUM 168 mg/dL (82-167)
[2019-11-20] MEDS: CEFEPIME 2 GM in IV D5W 100 ML IV SCH (05:40)
[2019-11-20] MEDS: METOCLOPRAMIDE HCL 10 MG/2 ML VIAL IV SCH ×4 (05:40→23:40)
--- NOTE | 2019-11-20 06:42 | NUR ---
MS RN CLOSING NOTES PATIENT RESTING IN BED COMFORTABLY; BREATHING EVEN AND UNLABORED; PATIENT ON 15 LPM VIA NON-REBREATHER; PATIENT DESAT TO 83% ON 6LPM VIA SIMPLE MASK; RT AWARE, CHARGE NURSE AWARE; MD AWARE; NO SOB NOTED; A/OX1; NPO STATUS MAINTAINED; NO MEDS GIVEN VIA GTUBE PER MD ORDER; AJIT ML D5NS @ 60ML/HR; TOLERATING IVF WELL; NO S/S OF REDNESS OR INFILTRATION NOTED; ALL NEEDS RENDERED; SAFETY PRECAUTIONS IMPLEMENTED; BED LOCKED IN LOW POSITION; SIDE RAILS X2; WILL ENDORSE GALDINO TO ONCOMING SHIFT
--- NOTE | 2019-11-20 07:35 | NUR ---
MS RN NOTES RECEIVED PATIENT RESTING IN BED COMFORTABLY IN MODERATE HIGH BACK REST; PATIENT ON 15 LPM VIA NON-REBREATHER; NO SIGNS OF DISTRESS NOTED AT THIS TIME. A/OX1; IV FLUIDS ON AJIT ML D5NS @ 60ML/HR; NO S/S OF REDNESS OR INFILTRATION NOTED; SAFETY PRECAUTIONS IN PLACE; BED LOCKED IN LOW POSITION; SIDE RAILS X2; WILL CONTINUE TO MONITOR.
[2019-11-20] MEDS: ACETYLCYSTEINE 10% SOLN 400 MG/4 ML VIAL NEB SCH ×3 (07:56→23:15)
[2019-11-20 08:00] VITALS: BP 122/52
[2019-11-20 08:19] LABS: BASOPHILS # (AUTO) 0.1 /CMM (0.0-0.2); BASOPHILS % (AUTO) 0.6 % (0.0-2.0); EOSINOPHILS % (AUTO) 0.3 % (0.0-6.0); HEMATOCRIT 31 % (39-51); HEMOGLOBIN 9.7 g/dL (13.5-17.5); LYMPHOCYTES # (AUTO) 0.9 /CMM (0.8-4.8); LYMPHOCYTES % (AUTO) 5.7 % (20.0-44.0); MEAN CORPUSCULAR HGB CONC 31 g/dl (31.0-36.0); MEAN CORPUSCULAR VOLUME 89 fL (80-96); MONOCYTES # (AUTO) 0.8 /CMM (0.1-1.30); NEUTROPHILS # (AUTO) 14.6 /CMM (1.8-8.9); NEUTROPHILS % (AUTO) 88.4 % (43.0-81.0); PLATELET COUNT (AUTO) 197 /CMM (150-450); RED BLOOD CELL COUNT(AUTO) 3.48 MIL/uL (4.5-6.0); WHITE BLOOD COUNT (AUTO) 16.4 K/uL (4.3-11.0)
[2019-11-20] MEDS: PANTOPRAZOLE 40 MG VIAL IV SCH ×2 (08:22→16:56)
[2019-11-20] MEDS: CLOTRIMAZOLE 1% 15 GM TUBE TP SCH ×2 (08:27→16:58)
[2019-11-20 08:48] LABS: ALANINE AMINOTRANSFERASE 28 U/L (12-78); ALKALINE PHOSPHATASE 60 U/L (46-116); ASPARTATE AMINOTRANSFERASE 43 U/L (15-37); BILIRUBIN,TOTAL 0.5 mg/dL (0.2-1.0); CALCIUM, SERUM 8.5 mg/dL (8.5-10.1); CARBON DIOXIDE 17 mmol/L (21-32); CHLORIDE 119 mmol/L (98-107); CREATININE 4.4 mg/dL (0.6-1.3); GLUCOSE 152 mg/dL (74-106); PHOSPHORUS 3.9 mg/dL (2.5-4.9); POTASSIUM 3.4 mmol/L (3.5-5.1); SODIUM SERUM 152 mmol/L (136-145); TOTAL PROTEIN, SERUM 7.2 g/dL (6.4-8.2); UREA NITROGEN, BLOOD 76 mg/dL (7-18)
[2019-11-20 08:51] LABS: ALBUMIN 1.3 g/dL (3.4-5.0)
[2019-11-20] MEDS: FERROUS SULFATE (325 MG) 325 MG/TAB TABLET GT SCH (09:00)
[2019-11-20] MEDS: ACETAMINOPHEN 650 MG/20.3 ML UDC GT SCH (09:00)
[2019-11-20] MEDS: SENNOSIDES 8.6 MG TABLET GT SCH ×2 (09:00→21:00)
[2019-11-20] MEDS: THIAMINE HCL 100 MG TABLET GT SCH (09:00)
[2019-11-20] MEDS: MULTIVIT W/MINERALS 1 TAB TABLET GT SCH (09:00)
[2019-11-20] MEDS: PROSOURCE / PROSTAT (PYXIS) 30 ML UDC GT SCH ×2 (09:00→16:59)
--- NOTE | 2019-11-20 09:00 | NUR ---
RN NOTES PATIENT STILL NPO, PER RN OTOLARYNGOLOGY HOLD MD QUINTON MADE AWARE THAT GTUBE IS LEAKING, WILL CONTINUE TO MONITOR.
--- NOTE | 2019-11-20 10:43 | NUR ---
RN NOTES RECEIVED A CALL FROM GUMARO(SON & DPOA), PER SON THEY WANT PATIENT ON COMFORT CARE, CHARGE NURSE MADE AWARE AND WILL INFORM MD.
[2019-11-20 15:16] LABS: EOSINOPHILS % (AUTO) 1.8 % (0.0-6.0); HEMATOCRIT 31 % (39-51); HEMOGLOBIN 9.6 g/dL (13.5-17.5); LYMPHOCYTES # (AUTO) 1.3 /CMM (0.8-4.8); LYMPHOCYTES % (AUTO) 7.9 % (20.0-44.0); MEAN CORPUSCULAR HGB CONC 31 g/dl (31.0-36.0); MEAN CORPUSCULAR VOLUME 88 fL (80-96); MONOCYTES # (AUTO) 6.1 /CMM (0.1-1.30); MONOCYTES % (AUTO) 36.6 % (2.0-12.0); NEUTROPHILS # (AUTO) 8.9 /CMM (1.8-8.9); NEUTROPHILS % (AUTO) 53.7 % (43.0-81.0); PLATELET COUNT (AUTO) 226 /CMM (150-450); WHITE BLOOD COUNT (AUTO) 16.7 K/uL (4.3-11.0)
[2019-11-20 15:38] LABS: BAND % (MANUAL) 2 % (0.0-5.0); LYMPHOCYTES % (MANUAL) 7 % (16-48); MONOCYTES % (MANUAL) 6 % (0-11.0); NEUTROPHILS % (MANUAL) 84 (42-76)
[2019-11-20 15:39] LABS: EOSINOPHILS % (MANUAL) 1 % (0-4)
[2019-11-20 16:00] VITALS: BP 76/45
[2019-11-20 16:16] LABS: ALANINE AMINOTRANSFERASE 29 U/L (12-78); ALKALINE PHOSPHATASE 55 U/L (46-116); ASPARTATE AMINOTRANSFERASE 43 U/L (15-37); BILIRUBIN,TOTAL 0.4 mg/dL (0.2-1.0); CALCIUM, SERUM 8.6 mg/dL (8.5-10.1); GLUCOSE 119 mg/dL (74-106); MAGNESIUM 1.9 mg/dL (1.8-2.4); PHOSPHORUS 4.5 mg/dL (2.5-4.9); TOTAL PROTEIN, SERUM 7.5 g/dL (6.4-8.2)
[2019-11-20 16:43] LABS: CARBON DIOXIDE 18 mmol/L (21-32); CHLORIDE 120 mmol/L (98-107); POTASSIUM 3.5 mmol/L (3.5-5.1); SODIUM SERUM 153 mmol/L (136-145)
[2019-11-20 16:52] LABS: ALBUMIN 1.3 g/dL (3.4-5.0); UREA NITROGEN, BLOOD 82 mg/dL (7-18)
--- NOTE | 2019-11-20 18:33 | NUR ---
MS RN NOTES PATIENT RESTING IN BED COMFORTABLY IN MODERATE HIGH BACK REST; PATIENT ON 15 LPM VIA NON-REBREATHER;. A/OX0; ON COMFORT MEASURES ONLY, SAFETY PRECAUTIONS IN PLACE; BED LOCKED IN LOW POSITION; SIDE RAILS X2; WILL ENDORSE TO COIN WRAPPING MACHINE OPERATOR NURSE FOR GALDINO.
--- NOTE | 2019-11-20 19:45 | NUR ---
RN OPEN NOTES PATIENT IS LAYING IN BED, ON 15L NONREBREATHER MASK. NO SOB/ ACUTE RESPIRATORY DISTRESS NOTED. ON COMFORT MEASURES. NPO. CALL LIGHT IS WITHIN REACH. BED IS IN LOWEST LOCKED POSITION WITH SIDE RAILS UP X2. WILL CONTINUE TO MONITOR.
[2019-11-20 20:00] VITALS: BP 93/41
[2019-11-20] MEDS: OLANZAPINE 5 MG TABLET GT SCH (22:00)
--- NOTE | 2019-11-21 01:44 | NUR ---
RN NOTES PATIENT HAS . PT WAS PULSELESS, HAD NO RESPIRATIONS AND WAS UNABLE TO OBTAIN VITAL SIGNS. POSTMORTEM CARE PROVIDED. PT WAS ON COMFORT MEASURES. 0200: CONTACTED [facility] [employer] 0210: CONTACTED GUMARO ARVIZU (SON) REGARDING HIS FATHER'S . ASKED HIM IF HE HAD A MORTUARY, HE REPLIED YES BUT GAVE NO DETAILS. NOTIFIED HIM THAT THE BODY STAYS ON THE UNIT FOR 2 HOURS THEN WILL BE BROUGHT TO THE [facility] [place]. HE STATED HE COULDN'T COME TO THE HOSPITAL WITHIN THAT TIME FRAME AND THAT HE MIGHT COME LATER IN THE MORNING. 0214: NOTIFIED NURSING COMBAT CONTROL, KYLE JIMENEZ. 0230: NOTIFIED DR. KYMBERLY LOPEZ ABOUT . ASKED HIM IF HE WILL SIGN THE CERTIFICATE, IN WHICH HE STATED THAT DR. ROBERT WILL BE SIGNING IT. 024: NOTIFIED DR. ROBERT REGARDING PT'S AND THAT PER DR. LOPEZ, SHE WILL BE SIGNING THE CERTIFICATE. Addendum: 11/21/19 at 0452 by EMMA LATIF RN CASE# [id number]
--- NOTE | 2019-11-21 01:44 | NUR ---
RN NOTES PATIENT HAS . PATIENT IS PULSELESS, HAS NO RESPIRATIONS, AND UNABLE TO OBTAIN VITAL SIGNS. POSTMORTEM CARE PROVIDED. PATIENT WAS ON COMFORT MEASURES.
--- NOTE | 2019-11-21 03:26 | NUR ---
RN NOTES PATIENT PICKED [place] BY SECUR[facility] [place] [facility] [place]
[2019-11-21] MEDS ORDERED: CEFEPIME 2 GM in IV D5W 100 ML IV SCH (06:00)
== END 2019-11-21 01:44 | disposition expired | DRG 377 ==
LOC: ER 11:41 → TELE1 16:24 → MED 11-09 10:57
PROVIDERS: ADMIT Family Medicine; ATTEND Student in an Organized Health Care Education/Training Program
PROC: 0W993ZZ Drainage of Right Pleural Cavity, Percutaneous Approach (ICD-10-PCS; principal; 2019-11-05)
PROC: 0DB58ZX Excision of Esophagus, Via Natural or Artificial Opening Endoscopic, Diagnostic (ICD-10-PCS; 2019-11-12)
PROC: 05HY33Z Insertion of Infusion Device into Upper Vein, Percutaneous Approach (ICD-10-PCS; 2019-11-15)
DX: K29.01 Acute gastritis with bleeding (principal); J15.9 Unspecified bacterial pneumonia; N17.0 Acute kidney failure with tubular necrosis; E43 Unspecified severe protein-calorie malnutrition; J96.91 Respiratory failure, unspecified with hypoxia; E87.1 Hypo-osmolality and hyponatremia; E87.2 Acidosis; Z68.1 Body mass index [BMI] 19.9 or less, adult; J98.11 Atelectasis; E87.0 Hyperosmolality and hypernatremia; G93.49 Other encephalopathy; J91.8 Pleural effusion in other conditions classified elsewhere; Z66 Do not resuscitate; Z51.5 Encounter for palliative care; K21.0 Gastro-esophageal reflux disease with esophagitis; F03.90 Unspecified dementia, unspecified severity, without behavioral disturbance, psychotic disturbance, mood disturbance, and anxiety; E86.0 Dehydration; F32.9 Major depressive disorder, single episode, unspecified; D72.829 Elevated white blood cell count, unspecified; I95.9 Hypotension, unspecified; R13.10 Dysphagia, unspecified; E11.65 Type 2 diabetes mellitus with hyperglycemia; F09 Unspecified mental disorder due to known physiological condition; L98.9 Disorder of the skin and subcutaneous tissue, unspecified; Y95 Nosocomial condition; L30.4 Erythema intertrigo; E83.42 Hypomagnesemia; E87.6 Hypokalemia; D64.9 Anemia, unspecified; E83.39 Other disorders of phosphorus metabolism; K44.9 Diaphragmatic hernia without obstruction or gangrene; I70.0 Atherosclerosis of aorta; I10 Essential (primary) hypertension; N28.1 Cyst of kidney, acquired
CPT/HCPCS: 36410; 36415; 36600; 71045-TC; 74018; 76770-TC; 80048-TC; 80053-TC; 80061-TC; 80076-TC; 80202-TC; 81000-TC; 82550-TC; 82553; 82570-TC; 82728-TC; 82803-TC; 82962-TC; 83605-TC; 83615-TC; 83735-TC; 83880; 83970; 84100-TC; 84155-TC; 84300-TC; 84484-TC; 85025-TC; 85378-TC; 85652-TC; 85730-TC; 86140-TC; 86225; 86235; 86706; 86803; 86850-TC; 87040-TC; 87070-TC; 87075-TC; 87081-TC; 87102-TC; 87340; 88108-TC; 88305-TC; 88312-TC; 88313-TC; 88342; 89051-TC; 94799-TC; A4349; C9113; G0378; J0456; J0692; J0696; J1940; J2704; J2765; J3010; J3370; J3475; J3480; J3490; J7030; J7040; J7042; J7050; J7060; U0003-CS